=== PATIENT | male | born 1940 | race Caucasian/White ===

== ENCOUNTER 2017-04-19 18:49 | Emergency (ER) | payer MEDICARE, BC ==
[2017-04-19] MEDS ORDERED: SODIUM CHLORIDE 0.9% 1,000 ML IV STA (19:11)
--- NOTE | 2017-04-19 19:14 | ED ---
General Adult HPI - General Chief complaint: Weakness Stated complaint: poss seizure Time Seen by Provider: 04/19/17 18:58 Source: patient, family, RN notes reviewed Mode of arrival: wheelchair Limitations: no limitations - History of Present Illness Initial comments: 77 yo male presents with chief complaint of generalized weakness over the past 24 hours. Patient does have history of Parkinson's disease. Patient's he had a staring spell. He was staring, unresponsive. This lasted just seconds. There is no generalized seizure activity. Patient also reports intermittent diaphoresis and several episodes of diarrhea over the past week. Denies any current chest pain or shortness of breath. Denies abdominal pain. No headache. No fever or chills. Patient's Parkinson medication-hartmann adjusted on April 08. Patient's symptoms have only been present for the past 24 hours. - Related Data Home Medications Medication Instructions Recorded Confirmed Bisoprol/Hydrochlorothiazide [Ziac 1 tab PO DAILY 03/29/14 04/19/17 10-6.25 MG] Fenofibrate 160 mg PO DAILY 03/29/14 04/19/17 Pantoprazole Sodium 40 mg PO DAILY 03/29/14 04/19/17 Acetaminophen [Tylenol Arthritis] 650 mg PO BID PRN 04/19/17 04/19/17 Baclofen [Lioresal] 20 mg PO HS 04/19/17 04/19/17 Carbidopa/Levodopa [Sinemet CR 1 tab PO TID 04/19/17 04/19/17 50-200 mg] Escitalopram [Lexapro] 10 mg PO DAILY 04/19/17 04/19/17 rOPINIRole HCL [Requip Xl] 4 mg PO QAM 04/19/17 04/19/17 Allergies Allergy/AdvReac Type Severity Reaction Status Date / Time diltiazem HCl [From Cardizem] Allergy Mild Rash/Hives Verified 04/19/17 20:05 Beta-Blockers Allergy Rash/Hives Verified 04/19/17 20:05 (Beta-Adrenergic Bloc Review of Systems ROS Statement: Those systems with pertinent positive or pertinent negative responses have been documented in the HPI. ROS Other: All systems not noted in ROS Statement are negative. Past Medical History Past Medical History: GERD/Reflux, Hypertension Additional Past Medical History / Comment(s): parkinsons History of Any Multi-Drug Resistant Organisms: None Reported Past Surgical History: Back Surgery, Cholecystectomy, Orthopedic Surgery Additional Past Surgical History / Comment(s): right knee Past Psychological History: No Psychological Hx Reported Smoking Status: Former smoker Past Alcohol Use History: None Reported Past Drug Use History: None Reported General Exam Limitations: no limitations General appearance: alert, in no apparent distress Head exam: Present: atraumatic, normocephalic Eye exam: Present: normal appearance, PERRL ENT exam: Present: mucous membranes dry Neck exam: Present: normal inspection. Absent: tenderness, meningismus Respiratory exam: Present: normal lung sounds bilaterally. Absent: respiratory distress Cardiovascular Exam: Present: regular rate, normal rhythm GI/Abdominal exam: Present: soft, distended. Absent: tenderness, guarding Extremities exam: Present: normal inspection, normal capillary refill. Absent: pedal edema Neurological exam: Present: alert, oriented X3. Absent: motor sensory deficit Psychiatric exam: Present: normal mood, flat affect Skin exam: Present: warm, dry, intact. Absent: cyanosis, diaphoretic Course Vital Signs 04/19/17 04/19/17 18:57 20:07 Temperature 98.6 F Pulse Rate 60 62 Respiratory 20 18 Rate Blood Pressure 149/71 140/71 O2 Sat by Pulse 97 96 Oximetry EKG Findings - EKG Comments: EKG Findings:: EKG shows sinus rhythm with first-degree AV block, a trigger rate 62, TX interval 214, QRS duration 94, QTC 454, no ST segment elevation or depression no T-wave abnormality Medical Decision Making - Medical Decision Making 71 sexual male with Parkinson's presenting with generalized weakness. Patient' s vital signs are stable, exam unremarkable, including nonfocal neurologic exam. Chest x-ray and abdominal x-ray showed no acute findings. White blood cell count is normal at 5.5, hemoglobin stable at 13.8, electrolytes all within normal limits. Troponin is negative. Lactic acid is 1.8 which is negative. Urinalysis shows no signs of infection. Patient's weakness may be related to his Parkinson's disease, or medication effect. Patient will follow-up with both his primary care physician and neurologist. - Lab Data Result diagrams: 04/19/17 19:25 04/19/17 19:25 Lab Results 04/19/17 04/19/17 04/19/17 Range/Units 19:25 19:25 19:25 WBC 5.5 (3.8-10.6) k/uL RBC 4.70 (4.30-5.90) m/uL Hgb 13.8 (13.0-17.5) gm/dL Hct 42.1 (39.0-53.0) % MCV 89.7 (80.0-100.0) fL MCH 29.4 (25.0-35.0) pg MCHC 32.8 (31.0-37.0) g/dL RDW 16.9 H (11.5-15.5) % Plt Count 273 (150-450) k/uL Neutrophils % 69 % Lymphocytes % 19 % Monocytes % 4 % Eosinophils % 5 % Basophils % 1 % Neutrophils # 3.8 (1.3-7.7) k/uL Lymphocytes # 1.1 (1.0-4.8) k/uL Monocytes # 0.2 (0-1.0) k/uL Eosinophils # 0.3 (0-0.7) k/uL Basophils # 0.1 (0-0.2) k/uL Anisocytosis Slight PT (9.0-12.0) sec INR (<1.2) APTT (22.0-30.0) sec Sodium 138 (137-145) mmol/L Potassium 4.2 (3.5-5.1) mmol/L Chloride 104 (98-107) mmol/L Carbon Dioxide 21 L (22-30) mmol/L Anion Gap 13 mmol/L BUN 23 H (9-20) mg/dL Creatinine 1.06 (0.66-1.25) mg/dL Est GFR (MDRD) Af Amer >60 (>60 ml/min/1.73 sqM) Est GFR (MDRD) Non-Af >60 (>60 ml/min/1.73 sqM) Glucose 143 H (74-99) mg/dL Plasma Lactic Acid Wing (0.7-2.0) mmol/L Calcium 9.2 (8.4-10.2) mg/dL Magnesium 1.9 (1.6-2.3) mg/dL Total Bilirubin 0.4 (0.2-1.3) mg/dL AST 17 (17-59) U/L ALT 17 L (21-72) U/L Alkaline Phosphatase 39 (38-126) U/L Total Creatine Kinase 105 (55-170) U/L CK-MB (CK-2) 2.7 H* (0.0-2.4) ng/mL CK-MB (CK-2) Rel Index 2.6 Troponin I <0.012 (0.000-0.034) ng/mL Total Protein 6.8 (6.3-8.2) g/dL Albumin 4.1 (3.5-5.0) g/dL Urine Color Urine Appearance (Clear) Urine pH (5.0-8.0) Ur Specific Wedron (1.001-1.035) Urine Protein (Negative) Urine Glucose (UA) (Negative) Urine Ketones (Negative) Urine Blood (Negative) Urine Nitrite (Negative) Urine Bilirubin (Negative) Urine Urobilinogen (<2.0) mg/dL Ur Leukocyte Esterase (Negative) 04/19/17 04/19/17 04/19/17 Range/Units 19:25 19:25 19:36 WBC (3.8-10.6) k/uL RBC (4.30-5.90) m/uL Hgb (13.0-17.5) gm/dL Hct (39.0-53.0) % MCV (80.0-100.0) fL MCH (25.0-35.0) pg MCHC (31.0-37.0) g/dL RDW (11.5-15.5) % Plt Count (150-450) k/uL Neutrophils % % Lymphocytes % % Monocytes % % Eosinophils % % Basophils % % Neutrophils # (1.3-7.7) k/uL Lymphocytes # (1.0-4.8) k/uL Monocytes # (0-1.0) k/uL Eosinophils # (0-0.7) k/uL Basophils # (0-0.2) k/uL Anisocytosis PT 10.4 (9.0-12.0) sec INR 1.0 (<1.2) APTT 25.3 (22.0-30.0) sec Sodium (137-145) mmol/L Potassium (3.5-5.1) mmol/L Chloride (98-107) mmol/L Carbon Dioxide (22-30) mmol/L Anion Gap mmol/L BUN (9-20) mg/dL Creatinine (0.66-1.25) mg/dL Est GFR (MDRD) Af Amer (>60 ml/min/1.73 sqM) Est GFR (MDRD) Non-Af (>60 ml/min/1.73 sqM) Glucose (74-99) mg/dL Plasma Lactic Acid Wing 1.8 (0.7-2.0) mmol/L Calcium (8.4-10.2) mg/dL Magnesium (1.6-2.3) mg/dL Total Bilirubin (0.2-1.3) mg/dL AST (17-59) U/L ALT (21-72) U/L Alkaline Phosphatase (38-126) U/L Total Creatine Kinase (55-170) U/L CK-MB (CK-2) (0.0-2.4) ng/mL CK-MB (CK-2) Rel Index Troponin I (0.000-0.034) ng/mL Total Protein (6.3-8.2) g/dL Albumin (3.5-5.0) g/dL Urine Color Yellow Urine Appearance Clear (Clear) Urine pH 5.0 (5.0-8.0) Ur Specific Wedron 1.022 (1.001-1.035) Urine Protein Negative (Negative) Urine Glucose (UA) Negative (Negative) Urine Ketones Negative (Negative) Urine Blood Negative (Negative) Urine Nitrite Negative (Negative) Urine Bilirubin Negative (Negative) Urine Urobilinogen <2.0 (<2.0) mg/dL Ur Leukocyte Esterase Negative (Negative) Disposition Clinical Impression: Parkinson disease Disposition: HOME SELF-CARE Condition: Good Instructions: Parkinson Disease (ED) Referrals: Preston Prado DO [Primary Care Provider] - 1-2 days Gerald Garay DO [STAFF PHYSICIAN] - 1-2 days Time of Disposition: 21:00
[2017-04-19 19:36] LABS: Anisocytosis Slight; Basophils # (A) 0.1 k/uL (0-0.2); Basophils % (A) 1 %; CH 30.6; CHCM 34.2; Eosinophils # (A) 0.3 k/uL (0-0.7); Eosinophils % (A) 5 %; HCT 42.1 % (39.0-53.0); HDW 3.03; HGB 13.8 gm/dL (13.0-17.5); Luc # (Auto) 0.08; Luc % (Auto) 2; Lymphocytes # (A) 1.1 k/uL (1.0-4.8); Lymphocytes % (A) 19 %; MCH 29.4 pg (25.0-35.0); MCHC 32.8 g/dL (31.0-37.0); MCV 89.7 fL (80.0-100.0); Mean Platelet Volume 7.3; Monocytes # (A) 0.2 k/uL (0-1.0); Monocytes % (A) 4 %; Neutrophils # (A) 3.8 k/uL (1.3-7.7); Neutrophils % (A) 69 %; RDW 16.9 % (11.5-15.5); WBC 5.5 k/uL (3.8-10.6); WBC (Perox) 5.62
[2017-04-19 19:44] LABS: Appearance,Urine Clear (Clear); Bilirubin,Urine Negative (Negative); Glucose,Urine (UA) Negative (Negative); Ketones,Urine Negative (Negative); Leukocyte Esterase,Urine Negative (Negative); Nitrite,Urine Negative (Negative); Protein,Urine Negative (Negative); Specific Gravity,Urine 1.022 (1.001-1.035); UA Billing (MACRO vs. MICRO) CHEM; Urobilinogen,Urine <2.0 mg/dL (<2.0)
[2017-04-19 19:45] LABS: Partial Thromboplastin Time 25.3 sec (22.0-30.0); Prothrombin Time 10.4 sec (9.0-12.0)
[2017-04-19 19:46] LABS: ALT 17 U/L (21-72); AST 17 U/L (17-59); Alkaline Phosphatase 39 U/L (38-126); Anion Gap 13 mmol/L; Blood Urea Nitrogen 23 mg/dL (9-20); Calcium 9.2 mg/dL (8.4-10.2); Carbon Dioxide 21 mmol/L (22-30); Chloride 104 mmol/L (98-107); Glucose 143 mg/dL (74-99); Magnesium 1.9 mg/dL (1.6-2.3); Non-African American GFR(MDRD) >60 (>60 ml/min/1.73 sqM); Potassium 4.2 mmol/L (3.5-5.1); Sodium 138 mmol/L (137-145); Total Bilirubin 0.4 mg/dL (0.2-1.3); Total Protein 6.8 g/dL (6.3-8.2)
[2017-04-19 19:55] LABS: Creatine Kinase 105 U/L (55-170)
--- NOTE | 2017-04-19 20:07 | XR ---
EXAMINATION TYPE: XR abdomen acute w cxr DATE OF EXAM: 04/19/2017 COMPARISON: NONE HISTORY: Fatigue and chest pain TECHNIQUE: 4 views FINDINGS: Heart and mediastinum are normal. Lungs are clear. Bowel gas pattern is normal. There is no sign of i ntestinal obstruction or pneumoperitoneum. Fecal pattern is normal. There are clips from cholecystect jacqui. There are no pathologic calcifications over the kidneys. IMPRESSION: Nonacute abdomen. Normal chest.
[2017-04-19 20:08] LABS: Troponin I <0.012 ng/mL (0.000-0.034)
[2017-04-19 20:09] VITALS: RESP 18
[2017-04-19 20:10] LABS: Creatine Kinase MB 2.7 ng/mL (0.0-2.4)
[2017-04-19 21:10] VITALS: BP 149/91; PULSE 60; TEMP 97.9
== END 2017-04-19 21:09 | disposition home or self-care (01) ==
LOC: EC 18:49
DX: G20 Parkinson's disease (principal); R53.1 Weakness; R61 Generalized hyperhidrosis; R19.7 Diarrhea, unspecified; K21.9 Gastro-esophageal reflux disease without esophagitis; I10 Essential (primary) hypertension; Z87.891 Personal history of nicotine dependence; Z79.899 Other long term (current) drug therapy; Z88.8 Allergy status to other drugs, medicaments and biological substances
CPT/HCPCS: 36415; 74022; 80053; 81003; 82550; 82553; 83605; 83735; 84484; 85025; 85610; 85730; 93005; 96360; 96361; 99285

== ENCOUNTER 2017-04-25 07:14 | Day surgery (SDC) | payer MEDICARE, BC ==
[2017-04-23 15:37] VITALS: BMI 31.8
[~2017-04-25 07:14] MED LIST: LACTATED RINGERS 1,000 ML IV SCH
[2017-04-25 07:41] VITALS: TEMP 98.6
[2017-04-25] MEDS ORDERED: LIDOCAINE 1% 20 ML VIAL (10MG/ML) FOR IV START INTRADERMA ONE (07:45)
[2017-04-25 07:52] LABS: Glucose,Whole Blood 123 mg/dL (75-99)
[2017-04-25] MEDS ORDERED: PROPOFOL 10 MG/ML 20 ML VIAL IV ONE (08:25)
[2017-04-25] MEDS ORDERED: LIDOCAINE 1% INJ 10MG/ML (20 ML MDV) ONE (08:25)
--- NOTE | 2017-04-25 09:07 | P.PCN ---
Date of Procedure: 04/25/17 Procedure(s) Performed: Procedures: Esophagogastroduodenoscopy and biopsy. Colonoscopy and biopsy. Preoperative diagnosis: Dysphagia and change in bowel habits. Postoperative diagnosis: Sliding hiatal hernia with no obvious esophagitis or complicated reflux disease. Mild antral gastritis. Sigmoid diverticulosis. Multiple biopsies obtained from the duodenum, antrum, esophagus and right colon. Preparation: HalfLytely prep. Sedation: Was provided by anesthesia. Brief clinical history: The patient is a 77-year-old male who is referred for this evaluation because of change in bowel habits mostly in the form of intermittent diarrhea as well as intermittent dysphagia. This evaluation is to assess for, complicated reflux disease, neoplasia or other pathology. Procedure: With the patient on his left lateral decubitus position and after informed consent and adequate sedation, I passed the Olympus-GIF 160 video upper endoscope through the cricopharyngeus down the esophagus. GE junction was around 41 cm from the incisors and there was a small sliding hiatal hernia. The esophagus did not show any obvious erosions, ulcers, strictures or Duenas 's esophagus. The endoscope was then passed into the stomach which was insufflated with air and inspected in detail including the retroflex view in the cardia. There was some mottling and erythema in the antrum but no ulcers or erosions. Pyloric channel, duodenal bulb, post bulbar area and descending duodenum appeared within normal limits. I obtained biopsies from the duodenum, antrum and esophagus then the endoscope was withdrawn and I proceeded to do colonoscopy. Perianal area did not show any fissures or fistulas. There were no masses felt on digital rectal examination. The Olympus CFQ 160L video colonoscope was then inserted in the rectum in the usual fashion and advanced to the cecum. There were multiple diverticular orifices seen scattered in the sigmoid with no evidence of acute diverticulitis or strictures. The mucosa appeared healthy. No polyps or tumors were seen. I retroflexed the endoscope in the rectum before the endoscope was withdrawn and I obtained right colon biopsies as well. The patient tolerated the procedure well. Plan: The patient was reassured. Will await biopsy results. Discussed dietary measures. He will follow up with you as planned and I will be happy to see in the future if needed.
[2017-04-25 09:22] VITALS: BP 178/81
[2017-04-25 09:27] VITALS: PULSE 56; RESP 18
== END 2017-04-25 09:46 | disposition home or self-care (01) ==
LOC: ORWHC2ENDO 07:14
DX: K29.50 Unspecified chronic gastritis without bleeding (principal); K44.9 Diaphragmatic hernia without obstruction or gangrene; K57.30 Diverticulosis of large intestine without perforation or abscess without bleeding; R19.4 Change in bowel habit; R19.7 Diarrhea, unspecified; E11.9 Type 2 diabetes mellitus without complications; K21.9 Gastro-esophageal reflux disease without esophagitis; I10 Essential (primary) hypertension; G20 Parkinson's disease; Z88.8 Allergy status to other drugs, medicaments and biological substances; Z79.899 Other long term (current) drug therapy
CPT/HCPCS: 88305; 88342; 45380; 43239; J2001; J2704

== ENCOUNTER 2018-02-26 18:00 | Emergency (ER) | payer MEDICARE, BC ==
[2018-02-26] MEDS ORDERED: IPRATROPIUM-ALBUTEROL 3 ML NEB INHALATION STA (19:25)
--- NOTE | 2018-02-26 19:28 | ED ---
General Adult HPI - General Chief complaint: Upper Respiratory Infection Stated complaint: cough, poss dehydration Time Seen by Provider: 02/26/18 19:14 Source: patient, family, RN notes reviewed Mode of arrival: wheelchair Limitations: no limitations - History of Present Illness Initial comments: Patient's a 77-year-old male presented to the emergency room today with a chief complaint of cough congestion. Patient states that this cough with clear sputum production over the last month. They do admit that with the family doctor approximately 2 weeks ago had blood work obtained. States that they were told that his lungs sound clear at the time. at bedside stating that she's heard some wheezing. She does admit that been eating and drinking okay. States has noticed that the urine was darker today was thinking that he could be a little dehydrated as his water intake has been down. Denies any other complaints or symptoms. Patient denies any recent fever, chills, shortness of breath, chest pain, back pain, abdominal pain, nausea or vomiting, headaches or visual changes, or any other complaints. - Related Data Home Medications Medication Instructions Recorded Confirmed Bisoprol/Hydrochlorothiazide [Ziac 1 tab PO DAILY 03/29/14 02/26/18 10-6.25 MG] Fenofibrate 160 mg PO DAILY 03/29/14 02/26/18 Pantoprazole Sodium 40 mg PO DAILY 03/29/14 02/26/18 Acetaminophen [Tylenol Arthritis] 650 mg PO BID PRN 04/19/17 02/26/18 Baclofen [Lioresal] 20 mg PO HS PRN 04/19/17 02/26/18 Carbidopa/Levodopa [Sinemet CR 1 tab PO TID 04/19/17 02/26/18 50-200 mg] rOPINIRole HCL [Requip Xl] 4 mg PO QAM 04/19/17 02/26/18 Sertraline [Zoloft] 50 mg PO DAILY 02/26/18 02/26/18 Previous Rx's Medication Instructions Recorded Albuterol Inhaler [Ventolin Hfa 1 - 2 puff INHALATION Q4-6H PRN #1 02/26/18 Inhaler] inhaler Azithromycin [Zithromax Z-pack] 0 mg PO DIRECTED #6 tab 02/26/18 Allergies Allergy/AdvReac Type Severity Reaction Status Date / Time diltiazem HCl [From Cardizem] Allergy Mild Rash/Hives Verified 02/26/18 19:15 Beta-Blockers Allergy Rash/Hives Verified 02/26/18 19:15 (Beta-Adrenergic Bloc Review of Systems ROS Statement: Those systems with pertinent positive or pertinent negative responses have been documented in the HPI. ROS Other: All systems not noted in ROS Statement are negative. Past Medical History Past Medical History: GERD/Reflux, Hypertension Additional Past Medical History / Comment(s): parkinsons History of Any Multi-Drug Resistant Organisms: None Reported Past Surgical History: Back Surgery, Cholecystectomy, Orthopedic Surgery Additional Past Surgical History / Comment(s): right knee Past Psychological History: No Psychological Hx Reported Smoking Status: Former smoker General Exam - General Exam Comments Initial Comments: General: The patient is awake and alert, in no distress, and does not appear acutely ill. Eye: Pupils are equal, round and reactive to light, extra-ocular movements are intact. No nystagmus. There is normal conjunctiva bilaterally. No signs of icterus. Ears, nose, mouth and throat: There are moist mucous membranes and no oral lesions. Neck: The neck is supple, there is no tenderness or JVD. Cardiovascular: There is a regular rate and rhythm. No murmur, rub or gallop is appreciated. Respiratory: Mild expiratory wheeze. respirations are non-labored, breath sounds are equal. No stridor, rales, or rhonchi. Gastrointestinal: Soft, non-distended, non-tender abdomen without masses or organomegaly noted. There is no rebound or guarding present. No CVA tenderness. Bowel sounds are unremarkable. Musculoskeletal: Normal ROM, no tenderness. Sensation intact. Neurological: A&O x 3. CN II-XII intact, There are no obvious motor or sensory deficits. Coordination appears grossly intact. Speech is normal. Skin: Skin is warm and dry and no rashes or lesions are noted. Psychiatric: Cooperative, appropriate mood & affect, normal judgment. Limitations: no limitations Course Vital Signs 02/26/18 02/26/18 02/26/18 18:06 20:06 20:24 Temperature 97.4 F L Pulse Rate 60 78 82 Respiratory 20 Rate Blood Pressure 132/78 O2 Sat by Pulse 98 Oximetry - Reevaluation(s) Reevaluation #1: 02/26/18 19:27 Options were discussed about obtaining blood work and giving IV fluids if there is concern for dehydration. They've currently declined. They state they're comfortable with chest x-ray at this time and a breathing treatment. Medical Decision Making - Medical Decision Making Patient reexamined at this time shows no signs of distress. He is resting comfortably. Does admit to improvement after breathing treatment here in the emergency room. Chest x-rays negative for any sign of pneumonia. No other acute abnormality. Results were discussed with the patient. Patient's vital stable. Patient feeling well with like to be discharged home. Will be given a prescription for azithromycin along with albuterol inhaler. Advised following up with family doctor over the next 2 days return if symptoms increase worsen. Disposition Clinical Impression: Acute bronchitis Disposition: HOME SELF-CARE Condition: Good Instructions: Acute Bronchitis (ED) Additional Instructions: Please use medication as discussed. Please follow-up with family doctor in the next 2 days of symptoms have not improved. Please return to emergency room if the symptoms increase or worsen or for any other concerns. Prescriptions: Albuterol Inhaler [Ventolin Hfa Inhaler] 1 - 2 puff INHALATION Q4-6H PRN #1 inhaler PRN Reason: Cough Azithromycin [Zithromax Z-pack] 0 mg PO DIRECTED #6 tab Is patient prescribed a controlled substance at d/c from ED?: No Referrals: Preston Prado DO [Primary Care Provider] - 1-2 days Time of Disposition: 20:42
--- NOTE | 2018-02-26 20:12 | XR ---
EXAMINATION: XR chest 2V DATE AND TIME: 02/26/2018 7:44 PM CLINICAL INDICATION: cough TECHNIQUE: PA and lateral COMPARISON: None. FINDINGS: The lungs are clear. The pleural spaces are negative. The cardiac silhouette is not enlarged. The remainder of the mediastinal silhouette is unremarkable. The skeletal structures and soft tissues are negative for acute findings. IMPRESSION: NO ACUTE PROCESS.
[2018-02-26 21:13] VITALS: BP 167/76; PULSE 68; RESP 18; TEMP 98
== END 2018-02-26 21:11 | disposition home or self-care (01) ==
LOC: EC 18:00
DX: J20.9 Acute bronchitis, unspecified (principal); K21.9 Gastro-esophageal reflux disease without esophagitis; I10 Essential (primary) hypertension; Z87.891 Personal history of nicotine dependence; Z79.899 Other long term (current) drug therapy; Z88.8 Allergy status to other drugs, medicaments and biological substances
CPT/HCPCS: 71046; 94640; 99283

== ENCOUNTER 2018-03-05 14:32 | Emergency (ER) | payer MEDICARE, BC ==
[2018-03-05 14:47] VITALS: RESP 18; TEMP 97.9
[2018-03-05] MEDS ORDERED: SODIUM CHLORIDE 0.9% 500 ML IV STA ×2 (15:19→16:01)
--- NOTE | 2018-03-05 15:22 | ED ---
General Adult HPI - General Chief complaint: Weakness Stated complaint: Weakness Time Seen by Provider: 03/05/18 15:12 Source: patient, family, EMS, RN notes reviewed Mode of arrival: EMS Limitations: no limitations - History of Present Illness Initial comments: Patient is a pleasant 77-year-old male presenting to the emergency department following a fall. Fall occurred just prior to arrival. Patient was outside cutting the grass. He was very humid outside. Patient did get somewhat nauseated and fell down. No injury. No weakness. No confusion. No headache. No chest pain or dyspnea. Patient did have some nausea that is very mild at this time. Patient does not want any medication for this. No abdominal pain. No back pain. - Related Data Home Medications Medication Instructions Recorded Confirmed Bisoprol/Hydrochlorothiazide [Ziac 1 tab PO DAILY 03/29/14 02/26/18 10-6.25 MG] Fenofibrate 160 mg PO DAILY 03/29/14 02/26/18 Pantoprazole Sodium 40 mg PO DAILY 03/29/14 02/26/18 Acetaminophen [Tylenol Arthritis] 650 mg PO BID PRN 04/19/17 02/26/18 Baclofen [Lioresal] 20 mg PO HS PRN 04/19/17 02/26/18 Carbidopa/Levodopa [Sinemet CR 1 tab PO TID 04/19/17 02/26/18 50-200 mg] rOPINIRole HCL [Requip Xl] 4 mg PO QAM 04/19/17 02/26/18 Sertraline [Zoloft] 50 mg PO DAILY 02/26/18 02/26/18 Previous Rx's Medication Instructions Recorded Albuterol Inhaler [Ventolin Hfa 1 - 2 puff INHALATION Q4-6H PRN #1 02/26/18 Inhaler] inhaler Azithromycin [Zithromax Z-pack] 0 mg PO DIRECTED #6 tab 02/26/18 Allergies Allergy/AdvReac Type Severity Reaction Status Date / Time diltiazem HCl [From Cardizem] Allergy Mild Rash/Hives Verified 03/05/18 14:47 Beta-Blockers Allergy Rash/Hives Verified 03/05/18 14:47 (Beta-Adrenergic Bloc Review of Systems ROS Statement: Those systems with pertinent positive or pertinent negative responses have been documented in the HPI. ROS Other: All systems not noted in ROS Statement are negative. Constitutional: Denies: fever Eyes: Denies: eye pain ENT: Denies: ear pain Respiratory: Denies: cough, dyspnea Cardiovascular: Denies: chest pain Endocrine: Denies: fatigue Gastrointestinal: Reports: nausea. Denies: abdominal pain, vomiting Genitourinary: Denies: dysuria Musculoskeletal: Denies: back pain Skin: Denies: rash Neurological: Denies: weakness Past Medical History Past Medical History: GERD/Reflux, Hypertension Additional Past Medical History / Comment(s): parkinsons History of Any Multi-Drug Resistant Organisms: None Reported Past Surgical History: Back Surgery, Cholecystectomy, Orthopedic Surgery Additional Past Surgical History / Comment(s): right knee Past Psychological History: No Psychological Hx Reported Smoking Status: Former smoker Past Alcohol Use History: None Reported Past Drug Use History: None Reported General Exam Limitations: no limitations General appearance: alert, in no apparent distress Head exam: Present: atraumatic Eye exam: Present: normal appearance, PERRL, EOMI. Absent: nystagmus ENT exam: Present: normal oropharynx Neck exam: Present: normal inspection, full ROM. Absent: tenderness, meningismus Respiratory exam: Present: normal lung sounds bilaterally Cardiovascular Exam: Present: regular rate, normal rhythm Expanded Peripheral pulses: 2+: Radial (R), Radial (L), Posterior Tibialis (R), Posterior Tibialis (L) GI/Abdominal exam: Present: soft. Absent: distended, tenderness Extremities exam: Present: normal inspection. Absent: pedal edema, calf tenderness Back exam: Present: normal inspection. Absent: tenderness, vertebral tenderness Neurological exam: Present: alert, oriented X3, CN II-XII intact. Absent: motor sensory deficit Expanded Neurological exam: Present: protecting the airway Patient oriented to: Present: person, place, time Speech: Present: fluid speech Cranial nerves: EOM's Intact: Normal, Facial Sensation: Normal Sensory exam: Upper Extremity Light Touch: Normal, Lower Extremity Light Touch: Normal Motor strength exam: RUE: 5, LUE: 5, RLE: 5, LLE: 5 Eye Response: (4) open spontaneously Motor Response: (6) obeys commands Verbal Response: (5) oriented Psychiatric exam: Present: normal affect, normal mood Skin exam: Present: normal color Course Vital Signs 03/05/18 03/05/18 14:35 16:17 Temperature 97.9 F Pulse Rate 79 66 Respiratory 18 18 Rate Blood Pressure 145/71 148/76 O2 Sat by Pulse 96 97 Oximetry EKG Findings - EKG Comments: EKG Findings:: Sinus rhythm at 75. First-degree AV block with a LA of 248. QRS 98. QT 424. QTC 473. Normal axis. Normal QRS. No acute ST change. Medical Decision Making - Medical Decision Making Patient reevaluated and is standing up next to bed without complaints. Patient requesting discharge home. Patient was able to ambulate around the emergency department without any difficulty. Patient and family updated on results and need for follow-up. - Lab Data Result diagrams: 03/05/18 15:30 03/05/18 15:30 Lab Results 03/05/18 03/05/18 03/05/18 Range/Units 15:30 15:30 15:30 WBC 6.8 (3.8-10.6) k/uL RBC 4.75 (4.30-5.90) m/uL Hgb 13.4 (13.0-17.5) gm/dL Hct 42.0 (39.0-53.0) % MCV 88.5 (80.0-100.0) fL MCH 28.2 (25.0-35.0) pg MCHC 31.9 (31.0-37.0) g/dL RDW 16.2 H (11.5-15.5) % Plt Count 295 (150-450) k/uL Neutrophils % 77 % Lymphocytes % 15 % Monocytes % 4 % Eosinophils % 3 % Basophils % 1 % Neutrophils # 5.3 (1.3-7.7) k/uL Lymphocytes # 1.0 (1.0-4.8) k/uL Monocytes # 0.2 (0-1.0) k/uL Eosinophils # 0.2 (0-0.7) k/uL Basophils # 0.1 (0-0.2) k/uL Anisocytosis Slight PT (9.0-12.0) sec INR (<1.2) APTT (22.0-30.0) sec Sodium 137 (137-145) mmol/L Potassium 4.1 (3.5-5.1) mmol/L Chloride 104 (98-107) mmol/L Carbon Dioxide 19 L (22-30) mmol/L Anion Gap 14 mmol/L BUN 19 (9-20) mg/dL Creatinine 1.08 (0.66-1.25) mg/dL Est GFR (CKD-EPI)AfAm 77 (>60 ml/min/1.73 sqM) Est GFR (CKD-EPI)NonAf 66 (>60 ml/min/1.73 sqM) Glucose 170 H (74-99) mg/dL Plasma Lactic Acid Wing (0.7-2.0) mmol/L Calcium 9.0 (8.4-10.2) mg/dL Magnesium 2.0 (1.6-2.3) mg/dL Total Bilirubin 0.7 (0.2-1.3) mg/dL AST 21 (17-59) U/L ALT 19 L (21-72) U/L Alkaline Phosphatase 39 (38-126) U/L Total Creatine Kinase 110 (55-170) U/L CK-MB (CK-2) 2.6 H* (0.0-2.4) ng/mL CK-MB (CK-2) Rel Index 2.4 Troponin I <0.012 (0.000-0.034) ng/mL Total Protein 6.8 (6.3-8.2) g/dL Albumin 4.1 (3.5-5.0) g/dL Urine Color Urine Appearance (Clear) Urine pH (5.0-8.0) Ur Specific [place] (1.001-1.035) Urine Protein (Negative) Urine Glucose (UA) (Negative) Urine Ketones (Negative) Urine Blood (Negative) Urine Nitrite (Negative) Urine Bilirubin (Negative) Urine Urobilinogen (<2.0) mg/dL Ur Leukocyte Esterase (Negative) 03/05/18 03/05/18 03/05/18 Range/Units 15:30 15:30 15:47 WBC (3.8-10.6) k/uL RBC (4.30-5.90) m/uL Hgb (13.0-17.5) gm/dL Hct (39.0-53.0) % MCV (80.0-100.0) fL MCH (25.0-35.0) pg MCHC (31.0-37.0) g/dL RDW (11.5-15.5) % Plt Count (150-450) k/uL Neutrophils % % Lymphocytes % % Monocytes % % Eosinophils % % Basophils % % Neutrophils # (1.3-7.7) k/uL Lymphocytes # (1.0-4.8) k/uL Monocytes # (0-1.0) k/uL Eosinophils # (0-0.7) k/uL Basophils # (0-0.2) k/uL Anisocytosis PT 10.1 (9.0-12.0) sec INR 1.0 (<1.2) APTT 25.2 (22.0-30.0) sec Sodium (137-145) mmol/L Potassium (3.5-5.1) mmol/L Chloride (98-107) mmol/L Carbon Dioxide (22-30) mmol/L Anion Gap mmol/L BUN (9-20) mg/dL Creatinine (0.66-1.25) mg/dL Est GFR (CKD-EPI)AfAm (>60 ml/min/1.73 sqM) Est GFR (CKD-EPI)NonAf (>60 ml/min/1.73 sqM) Glucose (74-99) mg/dL Plasma Lactic Acid Wing 3.1 H* (0.7-2.0) mmol/L Calcium (8.4-10.2) mg/dL Magnesium (1.6-2.3) mg/dL Total Bilirubin (0.2-1.3) mg/dL AST (17-59) U/L ALT (21-72) U/L Alkaline Phosphatase (38-126) U/L Total Creatine Kinase (55-170) U/L CK-MB (CK-2) (0.0-2.4) ng/mL CK-MB (CK-2) Rel Index Troponin I (0.000-0.034) ng/mL Total Protein (6.3-8.2) g/dL Albumin (3.5-5.0) g/dL Urine Color Yellow Urine Appearance Clear (Clear) Urine pH 5.5 (5.0-8.0) Ur Specific [place] 1.015 (1.001-1.035) Urine Protein Negative (Negative) Urine Glucose (UA) Negative (Negative) Urine Ketones Negative (Negative) Urine Blood Negative (Negative) Urine Nitrite Negative (Negative) Urine Bilirubin Negative (Negative) Urine Urobilinogen <2.0 (<2.0) mg/dL Ur Leukocyte Esterase Negative (Negative) - Radiology Data Radiology results: image reviewed (Chest x-ray shows no acute process) Disposition Clinical Impression: Fall Disposition: HOME SELF-CARE Condition: Stable Instructions: Weakness (ED) Additional Instructions: Please follow-up with primary care physician tomorrow. Return for weakness, confusion, fevers, difficulty breathing, worsening or change in symptoms or other concerns. Is patient prescribed a controlled substance at d/c from ED?: No Referrals: Sophia Biswas MD [STAFF PHYSICIAN] - 1-2 days Time of Disposition: 17:37
[2018-03-05 15:44] LABS: Anisocytosis Slight; Basophils # (A) 0.1 k/uL (0-0.2); Basophils % (A) 1 %; Eosinophils # (A) 0.2 k/uL (0-0.7); Eosinophils % (A) 3 %; HGB 13.4 gm/dL (13.0-17.5); Lymphocytes % (A) 15 %; MCH 28.2 pg (25.0-35.0); MCHC 31.9 g/dL (31.0-37.0); MCV 88.5 fL (80.0-100.0); Mean Platelet Volume 6.6; Monocytes # (A) 0.2 k/uL (0-1.0); Monocytes % (A) 4 %; Neutrophils # (A) 5.3 k/uL (1.3-7.7); Neutrophils % (A) 77 %; Platelet Count 295 k/uL (150-450); RBC 4.75 m/uL (4.30-5.90); RDW 16.2 % (11.5-15.5); WBC 6.8 k/uL (3.8-10.6)
[2018-03-05 15:54] LABS: Albumin 4.1 g/dL (3.5-5.0); Potassium 4.1 mmol/L (3.5-5.1); Total Bilirubin 0.7 mg/dL (0.2-1.3); Total Protein 6.8 g/dL (6.3-8.2)
[2018-03-05 15:56] LABS: Partial Thromboplastin Time 25.2 sec (22.0-30.0); Prothrombin Time 10.1 sec (9.0-12.0)
[2018-03-05 16:05] LABS: Creatine Kinase 110 U/L (55-170)
[2018-03-05 16:06] LABS: Appearance,Urine Clear (Clear); Bilirubin,Urine Negative (Negative); Blood,Urine Negative (Negative); Color,Urine Yellow; Glucose,Urine (UA) Negative (Negative); Ketones,Urine Negative (Negative); Leukocyte Esterase,Urine Negative (Negative); Nitrite,Urine Negative (Negative); PH, Urine 5.5 (5.0-8.0); Protein,Urine Negative (Negative); Specific Gravity,Urine 1.015 (1.001-1.035); Urobilinogen,Urine <2.0 mg/dL (<2.0)
--- NOTE | 2018-03-05 16:06 | XR ---
EXAMINATION TYPE: XR chest 2V DATE OF EXAM: 03/05/2018 COMPARISON: 02/26/2018 HISTORY: Shortness of breath TECHNIQUE: Frontal and lateral views of the chest are obtained. FINDINGS: Scattered senescent parenchymal changes noted. Hyperinflation compatible with COPD. Focal eventration right hemidiaphragm. No evidence for infiltrate. No evidence for atelectasis. Heart size is stable. Mediastinal structures are stable and grossly unremarkable. No evidence for hilar prominence. Degenerative changes dorsal spine. IMPRESSION: 1. No evidence for acute pulmonary disease.
[2018-03-05 16:19] LABS: Troponin I <0.012 ng/mL (0.000-0.034)
[2018-03-05 16:31] LABS: Creatine Kinase MB 2.6 ng/mL (0.0-2.4)
[2018-03-05 18:08] VITALS: BP 142/80; PULSE 80
== END 2018-03-05 18:08 | disposition home or self-care (01) ==
LOC: EC 14:32
DX: R53.1 Weakness (principal); R11.0 Nausea; R40.2142 Coma scale, eyes open, spontaneous, at arrival to emergency department; R40.2252 Coma scale, best verbal response, oriented, at arrival to emergency department; R40.2362 Coma scale, best motor response, obeys commands, at arrival to emergency department; K21.9 Gastro-esophageal reflux disease without esophagitis; I10 Essential (primary) hypertension; G20 Parkinson's disease; Z87.891 Personal history of nicotine dependence; Z79.899 Other long term (current) drug therapy; Z88.8 Allergy status to other drugs, medicaments and biological substances; W19.XXXA Unspecified fall, initial encounter; Y93.H2 Activity, gardening and landscaping
CPT/HCPCS: 36415; 71046; 80053; 81003; 82550; 82553; 83605; 83735; 84484; 85025; 85610; 85730; 93005; 96360; 99285

== ENCOUNTER 2018-04-29 20:14 | Observation (INO) | payer MEDICARE, BC ==
[2018-04-29] MEDS ORDERED: IPRATROPIUM-ALBUTEROL 3 ML NEB INHALATION STA ×2 (21:00→23:42)
[2018-04-29] MEDS ORDERED: LEVOFLOXACIN 750MG-D5W PMX 750 MG in DEXTROSE/WATER 1 150ML.BAG IVPB STA (21:00)
[2018-04-29] MEDS ORDERED: methylPREDNISolone SOD SUCCI 125 MG/2 ML VIAL IV STA (21:00)
[2018-04-29] MEDS ORDERED: SODIUM CHLORIDE 0.9% 1,000 ML IV STA ×2 (21:00)
[2018-04-29 22:06] LABS: Anisocytosis Slight; Basophils % (A) 0 %; Eosinophils # (A) 0.1 k/uL (0-0.7); Eosinophils % (A) 1 %; HCT 42.8 % (39.0-53.0); HGB 13.8 gm/dL (13.0-17.5); Lymphocytes # (A) 1.5 k/uL (1.0-4.8); Lymphocytes % (A) 17 %; MCH 28.2 pg (25.0-35.0); MCHC 32.3 g/dL (31.0-37.0); MCV 87.4 fL (80.0-100.0); Mean Platelet Volume 6.7; Monocytes # (A) 0.5 k/uL (0-1.0); Monocytes % (A) 5 %; Neutrophils # (A) 6.3 k/uL (1.3-7.7); Neutrophils % (A) 74 %; Platelet Count 337 k/uL (150-450); RDW 16.3 % (11.5-15.5); WBC 8.6 k/uL (3.8-10.6)
[2018-04-29 22:14] LABS: INR 1.1 (<1.2); Partial Thromboplastin Time 27.9 sec (22.0-30.0); Prothrombin Time 10.4 sec (9.0-12.0)
[2018-04-29 22:17] LABS: Appearance,Urine Clear (Clear); Bilirubin,Urine Negative (Negative); Blood,Urine Negative (Negative); Color,Urine Yellow; Glucose,Urine (UA) Negative (Negative); Ketones,Urine Negative (Negative); Leukocyte Esterase,Urine Negative (Negative); Nitrite,Urine Negative (Negative); Protein,Urine Negative (Negative); Urobilinogen,Urine <2.0 mg/dL (<2.0)
[2018-04-29 22:17] LABS: ALT 17 U/L (21-72); AST 19 U/L (17-59); Albumin 4.4 g/dL (3.5-5.0); Alkaline Phosphatase 29 U/L (38-126); Anion Gap 12 mmol/L; Blood Urea Nitrogen 27 mg/dL (9-20); Calcium 9.5 mg/dL (8.4-10.2); Carbon Dioxide 23 mmol/L (22-30); Chloride 102 mmol/L (98-107); Glucose 106 mg/dL (74-99); Potassium 4.6 mmol/L (3.5-5.1); Sodium 137 mmol/L (137-145); Total Bilirubin 0.5 mg/dL (0.2-1.3); Total Protein 7.3 g/dL (6.3-8.2)
[2018-04-29 22:22] LABS: Creatine Kinase 155 U/L (55-170)
[2018-04-29 22:34] LABS: Creatine Kinase MB 3.2 ng/mL (0.0-2.4); Troponin I <0.012 ng/mL (0.000-0.034)
--- NOTE | 2018-04-29 22:34 | XR ---
EXAMINATION TYPE: XR chest 2V DATE OF EXAM: 04/29/2018 COMPARISON: 03/05/2018 HISTORY: Short of breath and cough TECHNIQUE: Frontal and lateral views of the chest are obtained. FINDINGS: There is no heart failure nor confluent pneumonic infiltrate. Costophrenic angles are yaron r. There are chest leads. Bony thorax is intact. IMPRESSION: No active cardiopulmonary disease. No change.
[2018-04-29] MEDS ORDERED: ZOLPIDEM 5 MG TAB PO STA (23:42)
[2018-04-29] MEDS ORDERED: hydrALAZINE HCL 20 MG/ML 1 ML VIAL IVP STA (23:43)
--- NOTE | 2018-04-30 00:14 | ED ---
SOB HPI - General Chief Complaint: Shortness of Breath Stated Complaint: KARLA Time Seen by Provider: 04/29/18 20:51 Source: patient, family Mode of arrival: wheelchair Limitations: no limitations - History of Present Illness Initial Comments: This 78-year-old white male presents with a complaint of some shortness of breath and cough. States that his cough is nonproductive. He cannot seem to muster up a significant cough. It feels like he does have phlegm present but cannot get it up. He states that the symptoms haven't present for the past 3 months but worse in the last 1 week. He was seen at the urgent care this past week and was prescribed some albuterol, prednisone, and Zithromax. This is not causing any improvement in his symptoms at this time. He states that the shortness of breath is fairly significant. He's felt weak. He's had decreased sleep due to the coughing. Much of history is obtained per the who is a better historian. No other complaints or modifying factors. There is no chest pain. There's been no known measured temperature at home but he is had some periods where she feels hot and then has some chills. - Related Data Home Medications Medication Instructions Recorded Confirmed Bisoprol/Hydrochlorothiazide [Ziac 1 tab PO DAILY 03/29/14 04/29/18 10-6.25 MG] Fenofibrate 160 mg PO DAILY 03/29/14 04/29/18 Pantoprazole Sodium 40 mg PO DAILY 03/29/14 04/29/18 Acetaminophen [Tylenol Arthritis] 650 mg PO BID PRN 04/19/17 04/29/18 Carbidopa/Levodopa [Sinemet CR 1 tab PO TID 04/19/17 04/29/18 50-200 mg] rOPINIRole HCL [Requip Xl] 4 mg PO QAM 04/19/17 04/29/18 Albuterol Inhaler [Ventolin Hfa 1 - 2 puff INHALATION RT-Q6H PRN 04/29/18 Inhaler] Carbidopa-Levodopa 25-100 mg 1 tab PO DAILY 04/29/18 04/29/18 [Sinemet 25-100] Cefuroxime Axetil [Ceftin] 500 mg PO Q12H 04/29/18 04/29/18 methylPREDNISolone [Medrol Dose See Taper PO DIRECTED 04/29/18 04/29/18 Pack] Allergies Allergy/AdvReac Type Severity Reaction Status Date / Time diltiazem HCl [From Cardizem] Allergy Mild Rash/Hives Verified 04/29/18 21:09 Beta-Blockers Allergy Rash/Hives Verified 04/29/18 21:09 (Beta-Adrenergic Bloc Review of Systems ROS Statement: Those systems with pertinent positive or pertinent negative responses have been documented in the HPI. ROS Other: All systems not noted in ROS Statement are negative. Past Medical History Past Medical History: GERD/Reflux, Hypertension Additional Past Medical History / Comment(s): parkinsons History of Any Multi-Drug Resistant Organisms: None Reported Past Surgical History: Back Surgery, Cholecystectomy, Orthopedic Surgery Additional Past Surgical History / Comment(s): right knee Past Psychological History: No Psychological Hx Reported Smoking Status: Former smoker Past Alcohol Use History: None Reported Past Drug Use History: None Reported General Exam - General Exam Comments Initial Comments: GENERAL: The patient is well nourished and well hydrated. VITAL SIGNS: Heart rate, blood pressure, respiratory rate reviewed as recorded in nurse's notes. EYES: Pupils are round and reactive. Extraocular movements are intact. No conjunctival / lid redness or swelling. ENT: No external evidence of injury, swelling, or ecchymosis. Airway is patent. Throat is clear. NECK: Nontender. No swelling or evidence of injury. No subcutaneous emphysema. Trachea is midline. No thyroid mass. HEART: Regular rate and rhythm. Good peripheral pulses. LUNGS/CHEST: Wheezing is noted bilaterally. No ecchymosis, subcutaneous emphysema, or tenderness. ABDOMEN: Abdomen soft without tenderness. No palpable masses or organomegaly. No peritoneal signs. No abdominal wall swelling or ecchymosis. EXTREMITIES: No extremity tenderness. Normal muscle tone and function. No thoracolumbar tenderness. NEUROLOGIC: Sensation is grossly intact. Cranial nerve exam reveals face is symmetrical, tongue is midline, speech is clear. SKIN: No abrasions or ecchymosis is noted. No induration or masses noted. PSYCHIATRIC: Alert and oriented. Appropriate behavior and judgment. Limitations: no limitations Course Vital Signs 04/29/18 04/29/18 04/29/18 20:19 20:52 22:25 Temperature 97.9 F Pulse Rate 64 60 Respiratory 18 20 Rate Blood Pressure 163/83 O2 Sat by Pulse 96 Oximetry 04/29/18 22:39 Temperature Pulse Rate 69 Respiratory Rate Blood Pressure O2 Sat by Pulse Oximetry Medical Decision Making - Medical Decision Making The patient is seen and examined. All diagnostics are reviewed. He does receive a EKG which shows a sinus bradycardia at a rate of 58. There is no acute ST-T wave changes identified. The ventricular rate is 58, RI intervals 200, QRS duration is 90, and the QTC intervals 447. He also has a chest x-ray which does not show any evidence of pneumonia or acute processes. The laboratory is reviewed and does not show any overt significant abnormalities. He receives 2 DuoNeb breathing treatments. He also receives some IV antibiotics. The patient further received some Solu-Medrol intravenously. He is complaining of some insomnia and receives 5 mg of Ambien prior to admission. Is feeling slightly improved on recheck and on oxygen. It is felt as though he likely does have a bronchitis. He is also significantly weak. He has failed outpatient treatment. This felt as though he benefit from admission to the hospital and further treatment and testing. Case will be discussed with internal medicine in the near future. His blood pressure is also elevated and he does receive some hydralazine. Is felt as though he may benefit from pulmonology consultation as his symptoms have been progressively worsening for quite some time. - Lab Data Result diagrams: 04/29/18 21:30 04/29/18 21:30 Lab Results 04/29/18 04/29/18 04/29/18 Range/Units 21:30 21:30 21:30 WBC 8.6 (3.8-10.6) k/uL RBC 4.90 (4.30-5.90) m/uL Hgb 13.8 (13.0-17.5) gm/dL Hct 42.8 (39.0-53.0) % MCV 87.4 (80.0-100.0) fL MCH 28.2 (25.0-35.0) pg MCHC 32.3 (31.0-37.0) g/dL RDW 16.3 H (11.5-15.5) % Plt Count 337 (150-450) k/uL Neutrophils % 74 % Lymphocytes % 17 % Monocytes % 5 % Eosinophils % 1 % Basophils % 0 % Neutrophils # 6.3 (1.3-7.7) k/uL Lymphocytes # 1.5 (1.0-4.8) k/uL Monocytes # 0.5 (0-1.0) k/uL Eosinophils # 0.1 (0-0.7) k/uL Basophils # 0.0 (0-0.2) k/uL Anisocytosis Slight PT (9.0-12.0) sec INR (<1.2) APTT (22.0-30.0) sec Sodium 137 (137-145) mmol/L Potassium 4.6 (3.5-5.1) mmol/L Chloride 102 (98-107) mmol/L Carbon Dioxide 23 (22-30) mmol/L Anion Gap 12 mmol/L BUN 27 H (9-20) mg/dL Creatinine 0.94 (0.66-1.25) mg/dL Est GFR (CKD-EPI)AfAm >90 (>60 ml/min/1.73 sqM) Est GFR (CKD-EPI)NonAf 78 (>60 ml/min/1.73 sqM) Glucose 106 H (74-99) mg/dL Calcium 9.5 (8.4-10.2) mg/dL Total Bilirubin 0.5 (0.2-1.3) mg/dL AST 19 (17-59) U/L ALT 17 L (21-72) U/L Alkaline Phosphatase 29 L (38-126) U/L Total Creatine Kinase 155 (55-170) U/L CK-MB (CK-2) 3.2 H (0.0-2.4) ng/mL CK-MB (CK-2) Rel Index 2.1 Troponin I <0.012 (0.000-0.034) ng/mL NT-Pro-B Natriuret Pep pg/mL Total Protein 7.3 (6.3-8.2) g/dL Albumin 4.4 (3.5-5.0) g/dL Urine Color Urine Appearance (Clear) Urine pH (5.0-8.0) Ur Specific [place] (1.001-1.035) Urine Protein (Negative) Urine Glucose (UA) (Negative) Urine Ketones (Negative) Urine Blood (Negative) Urine Nitrite (Negative) Urine Bilirubin (Negative) Urine Urobilinogen (<2.0) mg/dL Ur Leukocyte Esterase (Negative) Influenza Type A RNA (Not Detectd) Influenza Type B (PCR) (Not Detectd) 04/29/18 04/29/18 04/29/18 Range/Units 21:30 21:30 22:07 WBC (3.8-10.6) k/uL RBC (4.30-5.90) m/uL Hgb (13.0-17.5) gm/dL Hct (39.0-53.0) % MCV (80.0-100.0) fL MCH (25.0-35.0) pg MCHC (31.0-37.0) g/dL RDW (11.5-15.5) % Plt Count (150-450) k/uL Neutrophils % % Lymphocytes % % Monocytes % % Eosinophils % % Basophils % % Neutrophils # (1.3-7.7) k/uL Lymphocytes # (1.0-4.8) k/uL Monocytes # (0-1.0) k/uL Eosinophils # (0-0.7) k/uL Basophils # (0-0.2) k/uL Anisocytosis PT 10.4 (9.0-12.0) sec INR 1.1 (<1.2) APTT 27.9 (22.0-30.0) sec Sodium (137-145) mmol/L Potassium (3.5-5.1) mmol/L Chloride (98-107) mmol/L Carbon Dioxide (22-30) mmol/L Anion Gap mmol/L BUN (9-20) mg/dL Creatinine (0.66-1.25) mg/dL Est GFR (CKD-EPI)AfAm (>60 ml/min/1.73 sqM) Est GFR (CKD-EPI)NonAf (>60 ml/min/1.73 sqM) Glucose (74-99) mg/dL Calcium (8.4-10.2) mg/dL Total Bilirubin (0.2-1.3) mg/dL AST (17-59) U/L ALT (21-72) U/L Alkaline Phosphatase (38-126) U/L Total Creatine Kinase (55-170) U/L CK-MB (CK-2) (0.0-2.4) ng/mL CK-MB (CK-2) Rel Index Troponin I (0.000-0.034) ng/mL NT-Pro-B Natriuret Pep 242 pg/mL Total Protein (6.3-8.2) g/dL Albumin (3.5-5.0) g/dL Urine Color Urine Appearance (Clear) Urine pH (5.0-8.0) Ur Specific [place] (1.001-1.035) Urine Protein (Negative) Urine Glucose (UA) (Negative) Urine Ketones (Negative) Urine Blood (Negative) Urine Nitrite (Negative) Urine Bilirubin (Negative) Urine Urobilinogen (<2.0) mg/dL Ur Leukocyte Esterase (Negative) Influenza Type A RNA Not Detected (Not Detectd) Influenza Type B (PCR) Not Detected (Not Detectd) 04/29/18 Range/Units 22:07 WBC (3.8-10.6) k/uL RBC (4.30-5.90) m/uL Hgb (13.0-17.5) gm/dL Hct (39.0-53.0) % MCV (80.0-100.0) fL MCH (25.0-35.0) pg MCHC (31.0-37.0) g/dL RDW (11.5-15.5) % Plt Count (150-450) k/uL Neutrophils % % Lymphocytes % % Monocytes % % Eosinophils % % Basophils % % Neutrophils # (1.3-7.7) k/uL Lymphocytes # (1.0-4.8) k/uL Monocytes # (0-1.0) k/uL Eosinophils # (0-0.7) k/uL Basophils # (0-0.2) k/uL Anisocytosis PT (9.0-12.0) sec INR (<1.2) APTT (22.0-30.0) sec Sodium (137-145) mmol/L Potassium (3.5-5.1) mmol/L Chloride (98-107) mmol/L Carbon Dioxide (22-30) mmol/L Anion Gap mmol/L BUN (9-20) mg/dL Creatinine (0.66-1.25) mg/dL Est GFR (CKD-EPI)AfAm (>60 ml/min/1.73 sqM) Est GFR (CKD-EPI)NonAf (>60 ml/min/1.73 sqM) Glucose (74-99) mg/dL Calcium (8.4-10.2) mg/dL Total Bilirubin (0.2-1.3) mg/dL AST (17-59) U/L ALT (21-72) U/L Alkaline Phosphatase (38-126) U/L Total Creatine Kinase (55-170) U/L CK-MB (CK-2) (0.0-2.4) ng/mL CK-MB (CK-2) Rel Index Troponin I (0.000-0.034) ng/mL NT-Pro-B Natriuret Pep pg/mL Total Protein (6.3-8.2) g/dL Albumin (3.5-5.0) g/dL Urine Color Yellow Urine Appearance Clear (Clear) Urine pH 6.0 (5.0-8.0) Ur Specific [place] 1.020 (1.001-1.035) Urine Protein Negative (Negative) Urine Glucose (UA) Negative (Negative) Urine Ketones Negative (Negative) Urine Blood Negative (Negative) Urine Nitrite Negative (Negative) Urine Bilirubin Negative (Negative) Urine Urobilinogen <2.0 (<2.0) mg/dL Ur Leukocyte Esterase Negative (Negative) Influenza Type A RNA (Not Detectd) Influenza Type B (PCR) (Not Detectd) Disposition Clinical Impression: Bronchitis, Failure of outpatient treatment, Hypertension, Dyspnea, Weakness Disposition: ADMITTED IP TO THIS HOSP Condition: Fair Is patient prescribed a controlled substance at d/c from ED?: No Referrals: Preston Prado DO [Primary Care Provider] - 1-2 days Time of Disposition: 00:13 Decision Date: 04/30/18 Decision Time: 00:13
[2018-04-30] MEDS ORDERED: IPRATROPIUM-ALBUTEROL 3 ML NEB INHALATION PRN (00:15)
[2018-04-30] MEDS ORDERED: PROMETHAZ-COD 6.25-10 MG/5 ML 5 ML CUP PO PRN (00:15)
[2018-04-30] MEDS ORDERED: ACETAMINOPHEN TAB 325 MG TAB PO PRN (00:18)
[2018-04-30] MEDS: methylPREDNISolone SOD SUCCI 125 MG/2 ML VIAL IV SCH ×2 (06:04→12:11)
[2018-04-30] MEDS ORDERED: BUDESONIDE 0.5 MG/2 ML NEBU INHALATION SCH (08:00)
[2018-04-30] MEDS: CARBIDOPA-LEVODOPA 25-100 MG 1 EACH TAB PO SCH (09:34)
[2018-04-30] MEDS: BISOPROLOL-HCTZ 10-6.25 MG 1 EACH TAB PO SCH (09:34)
[2018-04-30] MEDS: ENOXAPARIN 40 MG/0.4 ML SYRINGE SQ SCH (09:34)
[2018-04-30] MEDS: CARBIDOPA-LEVODOPA ER 50-200MG 1 EACH TABLET.ER PO SCH ×3 (09:34→21:49)
[2018-04-30] MEDS: FENOFIBRATE 160 MG TAB PO SCH (09:35)
[2018-04-30] MEDS: PANTOPRAZOLE 40 MG TABLET PO SCH (09:35)
--- NOTE | 2018-04-30 17:12 | P.CNPUL ---
History of Present Illness Consult date: 04/30/18 Reason for consult: dyspnea History of present illness: 78-year-old male patient with known history of Parkinson's disease, presented to the hospital because of worsening shortness of breath and cough and chest congestion. This been going on for the past few days and the patient was apparently bronchospastic and wheezy. He was seen in urgent care no patient based and the patient was given a course of Z-Eris and prednisone taper along with albuterol. He did not improve. He became worsening shortness of breath or worsen for that reason the end up coming into the hospital. The patient had vigorous cough [id number] and he was unable to take a good night's sleep because of his coughing. No reported aspiration the patient vomited he is able to swallow without any major difficulties. He has no previous aspiration. No recurrent pneumonias. No still smoking. No stiff COPD. No history of asthma. Most of DVT or pulmonary embolism. The patient had a chest x-ray that showed no acute abnormalities and patient is currently on. IV Levaquin. Is also on IV Solu-Medrol. Outpatient medications have been ordered resume. Review of Systems Constitutional: Reports fatigue, Reports lethargy, Reports weakness Eyes: denies blurred vision, denies bulging eye, denies decreased vision Ears: deny: decreased hearing, ear discharge, earache, tinnitus Ears, nose, mouth and throat: Denies headache, Denies sore throat Cardiovascular: Reports shortness of breath Respiratory: Reports dyspnea Gastrointestinal: Denies abdominal pain, Denies diarrhea, Denies nausea, Denies vomiting Genitourinary: Reports as per HPI Musculoskeletal: Reports as per HPI Musculoskeletal: absent: ankle pain, ankle stiffness, ankle swelling Integumentary: Denies pruritus, Denies rash Neurological: Reports ataxia, Reports balance difficulties, Reports change in speech, Reports gait dysfunction, Reports memory loss, Reports motor disturbance Psychiatric: Denies anxiety, Denies depression Endocrine: Reports as per HPI Hematologic/Lymphatic: Reports as per HPI Allergic/Immunologic: Reports as per HPI Past Medical History Past Medical History: GERD/Reflux, Hypertension Additional Past Medical History / Comment(s): Parkinson's disease History of Any Multi-Drug Resistant Organisms: None Reported Past Surgical History: Back Surgery, Cholecystectomy, Orthopedic Surgery Additional Past Surgical History / Comment(s): right knee Past Psychological History: No Psychological Hx Reported Smoking Status: Former smoker Past Alcohol Use History: None Reported Past Drug Use History: None Reported Medications and Allergies Home Medications Medication Instructions Recorded Confirmed Type Bisoprol/Hydrochlorothiazide [Ziac 1 tab PO DAILY 03/29/14 04/29/18 History 10-6.25 MG] Fenofibrate 160 mg PO DAILY 03/29/14 04/29/18 History Pantoprazole Sodium 40 mg PO DAILY 03/29/14 04/29/18 History Acetaminophen [Tylenol Arthritis] 650 mg PO BID PRN 04/19/17 04/29/18 History Carbidopa/Levodopa [Sinemet CR 1 tab PO TID 04/19/17 04/29/18 History 50-200 mg] rOPINIRole HCL [Requip Xl] 4 mg PO QAM 04/19/17 04/29/18 History Albuterol Inhaler [Ventolin Hfa 1 - 2 puff INHALATION RT-Q6H PRN 04/29/18 History Inhaler] Carbidopa-Levodopa 25-100 mg 1 tab PO DAILY 04/29/18 04/29/18 History [Sinemet 25-100] Cefuroxime Axetil [Ceftin] 500 mg PO Q12H 04/29/18 04/29/18 History methylPREDNISolone [Medrol Dose See Taper PO DIRECTED 04/29/18 04/29/18 History Pack] Allergies Allergy/AdvReac Type Severity Reaction Status Date / Time diltiazem HCl [From [facility] Allergy Mild Rash/Hives Verified 04/29/18 21:09 Beta-Blockers Allergy Rash/Hives Verified 04/29/18 21:09 (Beta-Adrenergic Bloc Physical Exam Vitals: Vital Signs Temp Pulse Pulse Resp BP BP Pulse Ox 04/30/18 15:00 96.9 F L 72 172/80 95 04/30/18 07:15 80 174/80 93 L 04/30/18 01:58 97.4 F L 99 16 181/93 96 04/30/18 01:07 88 04/30/18 01:00 86 20 181/86 04/30/18 00:56 85 04/30/18 00:20 80 19 193/97 04/29/18 23:40 83 18 189/103 92 L 04/29/18 22:39 69 10/23/18 22:25 60 04/29/18 20:52 20 04/29/18 20:40 57 L 18 171/93 97 04/29/18 20:19 97.9 F 64 18 163/83 96 Intake and Output 04/30/18 04/30/18 04/30/18 06:59 14:59 22:59 Intake Total 200 900 Balance 200 900 Intake: Intake, IV Titration 200 Amount Sodium Chloride 0.9% 1, 200 000 ml @ 100 mls/hr IV . Q10H STA Rx#:[id number] Oral 900 Other: Voiding Method Diaper # Voids 1 1 Gen. appearance the patient is calm and comfortable. He has pokers facies. This is typical of Parkinson's disease. Head exam was generally normal. There was no scleral icterus or corneal arcus. Mucous membranes were moist. Neck was supple and without jugular venous distension, thyromegaly, or carotid bruits. Carotids were easily palpable bilaterally. There was no adenopathy. Lungs sounds are diminished bilaterally along with some few scattered expiratory wheezes. Cardiac exam revealed the PMI to be normally situated and sized. The rhythm was regular and no extrasystoles were noted during several minutes of auscultation. The first and second heart sounds were normal and physiologic splitting of the second heart sound was noted. There were no murmurs, rubs, clicks, or gallops. Abdominal exam revealed normal bowel sounds. The abdomen was soft, non-tender, and without masses, organomegaly, or appreciable enlargement of the abdominal aorta. Examination of the extremities revealed easily palpable radial, femoral and pedal pulses. There was no cyanosis, clubbing or edema. Examination of the skin revealed no evidence of significant rashes, suspicious appearing nevi or other concerning lesions. Neurologically the patient has some psychomotor slowing related to Parkinson's disease. Results - Laboratory Findings CBC and BMP: 04/29/18 21:30 04/29/18 21:30 PT/INR, D-dimer PT 10.4 sec (9.0-12.0) 04/29/18 21:30 INR 1.1 (<1.2) 04/29/18 21:30 Abnormal lab findings: Abnormal Labs 04/29/18 04/29/18 04/29/18 21:30 21:30 21:30 RDW 16.3 H BUN 27 H Glucose 106 H ALT 17 L Alkaline Phosphatase 29 L CK-MB (CK-2) 3.2 H - Diagnostic Findings Chest x-ray: image reviewed Assessment and Plan Plan: Assessment 1 acute bronchitis with secondary shortness of breath/bronchospasm wheeze. Rule out underlying aspiration 2 Parkinson's disease 3 hypertension 4 acid reflux Plan Aspiration precautions. Check swallow evaluation. Continue Pulmicort Respules. Continue DuoNeb about she was around the clock. IV Solu Medrol. IV Levaquin. Chest x-ray was reviewed and the findings were 9 and there was no evidence of a pneumonia. Continue promethazine with codeine. We'll continue to follow. Outpatient medications have been ordered resume.
[2018-04-30] MEDS ORDERED: ALPRAZolam 0.25 MG TAB PO PRN (17:37)
[2018-04-30] MEDS ORDERED: ONDANSETRON 4 MG/2 ML VIAL IVP PRN (17:37)
[2018-04-30] MEDS ORDERED: CALCIUM CARBONATE 500 MG CHEWABLE PO PRN (17:37)
[2018-04-30] MEDS ORDERED: MELATONIN 3 MG TABLET PO PRN (17:37)
[2018-04-30] MEDS ORDERED: MAGNESIUM HYDROXIDE 2,400 MG/10 ML CUP PO PRN (17:37)
[2018-04-30] MEDS ORDERED: LACTULOSE 20 GM/30 ML CUP PO PRN (17:37)
[2018-04-30] MEDS: guaiFENesin 600 MG TABLET.ER PO SCH (18:08)
--- NOTE | 2018-04-30 18:20 | HP ---
HISTORY AND PHYSICAL DATE OF ADMISSION: 04/30/2018 DATE OF SERVICE: 04/30/2018 PRESENTING COMPLAINT: Shortness of breath, cough. HISTORY OF PRESENTING COMPLAINT: This is a very pleasant 78-year-old patient of Dr. Prado. Chronic stable medical conditions include GERD, hypertension, Parkinson disease. 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 The patient for a few days has been struggling with shortness of breath, cough, and has had rounds of antibiotics and steroids. He feels he is really congested, not able to bring up much phlegm. Patient when he does bring it up sometimes it is clear. His appetite has gone down. He feels congested in the chest. No obvious fever or chills. Weak and tired. Hence he was brought into the hospital. The patient was admitted through the ER and Pulmonary was consulted. His is at the bedside. REVIEW OF SYSTEMS: CONSTITUTIONAL: Tired. HEENT: None. RESPIRATORY: As above. CARDIOVASCULAR: None. GASTROINTESTINAL: None. GENITOURINARY: None. MUSCULOSKELETAL: None. DERMATOLOGICAL: None. HEMATOLOGICAL: None. LYMPHATICS: None. PSYCHIATRY: Slightly forgetful. NEUROLOGICAL: Tremors and weakness. The patient does shuffle. PAST MEDICAL HISTORY: 1. GERD. 2. Hypertension. 3. Parkinson disease. PAST SURGICAL HISTORY: 1. Back surgery. 2. Cholecystectomy. 3. Right knee surgery. SOCIAL HISTORY: . 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 No alcohol. Did smoke in the past. FAMILY HISTORY: Reviewed; noncontributory to presentation. HOME MEDICATIONS: 1. Ceftin 500 mg p.o. q.12. 2. Ventolin HFA 1 or 2 puffs q.6 p.r.n. 3. Medrol Dosepak. 4. Sinemet 25/100 one tablet p.o. daily. 5. Requip XL 4 mg p.o. daily. 6. Protonix 40 mg p.o. daily. 7. Tricor 160 mg p.o. daily. 8. Sinemet CR 50/200 one tablet p.o. t.i.d. 9. Ziac 10/6.25 one tablet p.o. daily. 10.Tylenol Arthritis 650 mg p.o. b.i.d. p.r.n. ALLERGIES: 1. CARDIZEM. 2. BETA WILFRIDO. PHYSICAL EXAMINATION: VITAL SIGNS ON PRESENTATION: Temperature 97.9, pulse 64, respiration 18, blood pressure 163/83, pulse ox 96% on room air. GENERAL APPEARANCE: Well built; BMI 30.5. Lying in bed, tired-appearing. EYES: Pupils equal. Conjunctivae normal. HEENT: External appearance of nose and ears normal. Oral cavity normal. NECK: JVD not raised. Mass not palpable. RESPIRATORY: Effort increased. LUNGS: Diminished breath sounds. Occasional crackles. CARDIOVASCULAR: First and second sounds normal. No edema. ABDOMEN: Soft, non-tender. Liver and spleen not palpable. LYMPHATIC: No lymph node palpable in neck or axillae. PSYCHIATRY: Alert and oriented x3. Mood and affect normal. NEUROLOGICAL: Pupils equal. No facial asymmetry. Patient has cogwheel rigidity, more so on the left side. Patient's gait was reported to be shuffling. INVESTIGATIONS: White count 8.6, hemoglobin 13.8, platelets 337, potassium 4.6, BUN 27, creatinine 0.94. Troponin negative. ProBNP 242. UA negative. Influenza A and B negative. Chest x-ray film, personally reviewed by me, shows a scant infiltrate to the right lower lobe. EKG tracing, personally reviewed by me, shows normal sinus rhythm. ASSESSMENT: 1. This is a patient who has had a few days of cough, sputum, weak, tired, decreased appetite, treated with antibiotic as an outpatient; seems to have acute exacerbation of chronic obstructive pulmonary disease. Given that patient is a previous smoker and possibly has underlying right-sided viral pneumonitis, acute bacterial component cannot be ruled out. Patient's white count otherwise is normal. There is no fever. 2. Idiopathic Parkinson's disease. 3. Gastroesophageal reflux disease. 4. Essential hypertension. 5. 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 PLAN: The patient will be started on bronchodilators, IV steroids, inhaled steroids. Will also add Mucinex and humidify the oxygen. Will also try to use a flutter valve and add Mucinex. Sputum will be sent for Gram stain and culture. Other home medications are resumed. Care was discussed with the patient and his . Questions were answered. Dr. Smith was consulted. MMODL / IJN: [id number] /
[2018-04-30] MEDS: IPRATROPIUM-ALBUTEROL 3 ML NEB INHALATION SCH ×2 (20:26→20:27)
[2018-04-30] MEDS: BUDESONIDE 1 MG/2 ML NEBU INHALATION SCH (20:27)
[2018-04-30] MEDS ORDERED: LEVOFLOXACIN 750MG-D5W PMX 750 MG in DEXTROSE/WATER 1 150ML.BAG IVPB SCH (21:00)
[2018-05-01] MEDS: methylPREDNISolone SOD SUCCI 40 MG/ML 1 ML VIAL IV SCH ×2 (00:31→10:21)
[2018-05-01 01:37] VITALS: TEMP 97.6
[2018-05-01] MEDS: IPRATROPIUM-ALBUTEROL 3 ML NEB INHALATION SCH ×5 (03:50→14:55)
[2018-05-01 07:06] LABS: Glucose,Whole Blood 218 mg/dL (75-99)
[2018-05-01] MEDS: BUDESONIDE 1 MG/2 ML NEBU INHALATION SCH (07:31)
[2018-05-01 10:19] VITALS: BP 146/84; RESP 16
[2018-05-01] MEDS: FENOFIBRATE 160 MG TAB PO SCH (10:20)
[2018-05-01] MEDS: BISOPROLOL-HCTZ 10-6.25 MG 1 EACH TAB PO SCH (10:20)
[2018-05-01] MEDS: CARBIDOPA-LEVODOPA ER 50-200MG 1 EACH TABLET.ER PO SCH (10:20)
[2018-05-01] MEDS: PANTOPRAZOLE 40 MG TABLET PO SCH (10:21)
[2018-05-01] MEDS: CARBIDOPA-LEVODOPA 25-100 MG 1 EACH TAB PO SCH (10:21)
[2018-05-01] MEDS: ENOXAPARIN 40 MG/0.4 ML SYRINGE SQ SCH (10:21)
[2018-05-01] MEDS: guaiFENesin 600 MG TABLET.ER PO SCH (10:21)
[2018-05-01 11:10] VITALS: PULSE 72
--- NOTE | 2018-05-01 13:18 | P.PN ---
Subjective Progress Note Date: 05/01/18 Principal diagnosis: Acute bronchitis with secondary shortness of breath/bronchospasm, wheeze. Rule out underlying aspiration 78-year-old male patient with known history of Parkinson's disease, presented to the hospital because of worsening shortness of breath and cough and chest congestion. This been going on for the past few days and the patient was apparently bronchospastic and wheezy. He was seen in urgent care no patient based and the patient was given a course of Z-Eris and prednisone taper along with albuterol. He did not improve. He became worsening shortness of breath or worsen for that reason the end up coming into the hospital. The patient had vigorous cough [id number] and he was unable to take a good night's sleep because of his coughing. No reported aspiration the patient vomited he is able to swallow without any major difficulties. He has no previous aspiration. No recurrent pneumonias. No still smoking. No stiff COPD. No history of asthma. Most of DVT or pulmonary embolism. The patient had a chest x-ray that showed no acute abnormalities and patient is currently on. IV Levaquin. Is also on IV Solu-Medrol. Outpatient medications have been ordered resume. On 05/01/2018 patient seen in follow-up. Breathing easier today, patient has swallow evaluation, and passed. Less coughing, less congestion. Remains pulse ox is 95%, patient is afebrile. Patient has a weak cough. No acute distress. No new labs a chest x-rays. Patient has been treated with a combination of Mucinex, nebulized treatments, Levaquin, and IV steroids, and responding quite nicely to treatments. Objective - Vital Signs Vital signs: Vital Signs Temp 97.6 F 05/01/18 10:19 Pulse 72 05/01/18 11:18 Resp 16 05/01/18 10:19 BP 146/84 05/01/18 10:19 Pulse Ox 94 L 05/01/18 10:19 Intake & Output 04/30/18 05/01/18 05/01/18 18:59 06:59 18:59 Intake Total 900 125 Balance 900 125 Intake: Oral 900 125 Other: Voiding Method Diaper Incontinent Incontinent Incontinent # Voids 3 1 - Exam Gen. appearance the patient is calm and comfortable. He has pokers facies. This is typical of Parkinson's disease. Head exam was generally normal. There was no scleral icterus or corneal arcus. Mucous membranes were moist. Neck was supple and without jugular venous distension, thyromegaly, or carotid bruits. Carotids were easily palpable bilaterally. There was no adenopathy. Lungs sounds are diminished bilaterally along with minimal end expiratory wheezes Cardiac exam revealed the PMI to be normally situated and sized. The rhythm was regular and no extrasystoles were noted during several minutes of auscultation. The first and second heart sounds were normal and physiologic splitting of the second heart sound was noted. There were no murmurs, rubs, clicks, or gallops. Abdominal exam revealed normal bowel sounds. The abdomen was soft, non-tender, and without masses, organomegaly, or appreciable enlargement of the abdominal aorta. Examination of the extremities revealed easily palpable radial, femoral and pedal pulses. There was no cyanosis, clubbing or edema. Examination of the skin revealed no evidence of significant rashes, suspicious appearing nevi or other concerning lesions. Neurologically the patient has some psychomotor slowing related to Parkinson's disease. - Labs CBC & Chem 7: 04/29/18 21:30 04/29/18 21:30 Labs: Abnormal Lab Results - Last 24 Hours (Table) 05/01/18 Range/Units 06:55 POC Glucose (mg/dL) 218 H (75-99) mg/dL Microbiology - Last 24 Hours (Table) 04/29/18 21:30 Blood Culture - Preliminary Blood No Growth after 24 hours Assessment and Plan Plan: Assessment 1 acute bronchitis with secondary shortness of breath/bronchospasm wheeze. Rule out underlying aspiration 2 Parkinson's disease 3 hypertension 4 acid reflux Plan Patient passed bedside swallow evaluation. Maintenance exam patient reports breathing easier, less congested, less wheezy. Afebrile, we will discontinue patient's IV Solu-Medrol, start him on prednisone 30 mg daily, continue oral course of antibiotics, no acute events overnight. Maintain aspiration precautions. From pulmonary perspective patient is stable for discharge home today on short course of prednisone taper, oral antibiotics. I performed a history & physical examination of the patient and discussed their management with my nurse practitioner, Yarely Ravi. I reviewed the nurse practitioner's note and agree with the documented findings and plan of care. Lung sounds are diminished with minimal end expiratory wheezes. The findings and the impression was discussed with the patient. I attest to the documentation by the nurse practitioner. Time with Patient: Less than 30
[2018-05-01] MEDS ORDERED: LEVOFLOXACIN 750 MG TAB PO SCH (21:00)
[2018-05-02] MEDS ORDERED: predniSONE 10 MG TAB PO SCH (09:00)
--- NOTE | 2018-05-02 09:10 | DS ---
DISCHARGE SUMMARY DATE OF ADMISSION: 04/30/2018 DATE OF DISCHARGE: 05/01/2018 FINAL DIAGNOSES: 1. Acute viral pneumonitis. 2. Idiopathic Parkinson's disease. 3. Gastroesophageal reflux disease. 4. Essential hypertension. 5. 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 6. Poor cough reflex. HOSPITAL COURSE: This is a patient who presented short of breath, cough, going on for a few days with no fever, no white count. Patient has got a poor cough, not able to expectorate well. Mucinex was added. Patient is given a flutter valve. Given some steroids, breathing treatments to which he was doing much better. Also was hydrated. The patient is doing much better today. Care was discussed with the keen to take it home after my initial discharge diagnosis idiopathic Parkinson disease, GERD, essential hypertension, gait dysfunction due to Parkinson's disease. Medical debility. CONSULTATION: Dr. Smith from Pulmonary. PHYSICAL EXAMINATION: Temperature 97.6, pulse 94, respirations 16, blood pressure 146/84, pulse ox 94% on room air. NEURO: Cogwheel rigidity. LUNGS: Decreased breath sounds. Poor cough, DISCHARGE MEDICATIONS: 1. Ziac 10/6.25 one tablet p.o. daily. 2. Tricor 160 mg p.o. daily. 3. Pantoprazole 40 mg p.o. daily. 4. Tylenol Arthritis 650 mg p.o. b.i.d. p.r.n. 5. Sinemet CR 50/200 one tablet p.o. t.i.d. 6. Requip 4 mg p.o. daily. 7. Sinemet 20/100 one tablet p.o. daily. 8. DuoNeb t.i.d. 9. Levaquin 750 mg q.24 three tablets. 10.Melatonin 3 mg q.h.s. p.r.n. 11.Mucinex 200 mg p.o. q.12. 12.Prednisone taper. Patient instructed about the flutter valve and to use inspiratory spirometer. This was discussed in detail with the patient and . Questions were answered. Discussion and discharge planning more than 35 minutes. Follow up with Dr. Prado in 1 week and follow up with his purse maker. MMODL / IJN: [id number] /
== END 2018-05-01 16:09 | disposition home or self-care (01) ==
LOC: EC 20:14 → 4SSUR 04-30 00:13
PROVIDERS: ADMIT Hospitalist; ATTEND Hospitalist
DX: J12.9 Viral pneumonia, unspecified (principal); I10 Essential (primary) hypertension; K21.9 Gastro-esophageal reflux disease without esophagitis; G20 Parkinson's disease; G47.00 Insomnia, unspecified; R26.9 Unspecified abnormalities of gait and mobility; R53.81 Other malaise; Z90.49 Acquired absence of other specified parts of digestive tract; Z79.899 Other long term (current) drug therapy; Z87.891 Personal history of nicotine dependence; Z88.8 Allergy status to other drugs, medicaments and biological substances
CPT/HCPCS: 96376 ×2; 96361 ×3; 96366; 96372 ×2; 96365; 96375 ×2; 99285; 36415; 94668; 94640 ×5; 94667; 93005; 92610; 83880; 80053; 82550; 82553; 84484; 85025; 85610; 85730; 81003; 87040; 87502; 83036; 71046; G0378 ×2; J0360; J2920; J2930 ×2; J1650 ×2; J1956 ×2

== ENCOUNTER 2018-07-11 14:54 | Emergency (ER) | payer MEDICARE, BC ==
[2018-07-11 15:11] VITALS: RESP 18
--- NOTE | 2018-07-11 16:17 | ED ---
Fall HPI - General Chief Complaint: Fall Stated Complaint: Fall Time Seen by Provider: 07/11/18 15:21 Source: patient, EMS Mode of arrival: EMS - History of Present Illness Initial Comments: This is a 78-year-old male the ER. Troponin fall. Patient presents to ER for evaluation of fall and hitting his head. Patient was walking through the [facility], [place] to check a deer he did lose his balance trip due to the mud, he then Slipped and landed on his left side of his face with mild abrasion to his head. 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 Place Fall Occurred: other Loss of Consciousness: none Prolonged Down Time?: no Symptoms Prior to Fall: none Location: head Severity: mild Severity scale (1-10): 1 Quality: other (no pain) Context: tripped/slipped Associated Symptoms: denies - Related Data Home Medications Medication Instructions Recorded Confirmed Bisoprol/Hydrochlorothiazide [Ziac 1 tab PO DAILY 03/29/14 07/11/18 10-6.25 MG] Fenofibrate 160 mg PO DAILY 03/29/14 07/11/18 Pantoprazole Sodium 40 mg PO DAILY 03/29/14 07/11/18 Acetaminophen [Tylenol Arthritis] 650 mg PO BID PRN 04/19/17 07/11/18 Carbidopa/Levodopa [Sinemet CR 1 tab PO TID 04/19/17 07/11/18 50-200 mg] rOPINIRole HCL [Requip Xl] 4 mg PO QAM 04/19/17 07/11/18 Carbidopa-Levodopa 25-100 mg 1 tab PO DAILY@1900 04/29/18 07/11/18 [Sinemet 25-100 mg] Sertraline [Zoloft] 50 mg PO DAILY 07/11/18 07/11/18 Allergies Allergy/AdvReac Type Severity Reaction Status Date / Time diltiazem HCl [From [facility]] Allergy Mild Rash/Hives Verified 07/11/18 16:34 Beta-Blockers Allergy Rash/Hives Verified 07/11/18 16:34 (Beta-Adrenergic Bloc Review of Systems ROS Statement: Those systems with pertinent positive or pertinent negative responses have been documented in the HPI. ROS Other: All systems not noted in ROS Statement are negative. Past Medical History Past Medical History: GERD/Reflux, Hypertension Additional Past Medical History / Comment(s): Parkinson's disease History of Any Multi-Drug Resistant Organisms: None Reported Past Surgical History: Back Surgery, Cholecystectomy, Orthopedic Surgery Additional Past Surgical History / Comment(s): right knee Past Psychological History: No Psychological Hx Reported Smoking Status: Former smoker Past Alcohol Use History: None Reported Past Drug Use History: None Reported General Exam Limitations: no limitations General appearance: alert, in no apparent distress Head exam: Present: normocephalic, normal inspection. Absent: atraumatic (left fore head abrasion) Eye exam: Present: normal appearance, PERRL, EOMI. Absent: scleral icterus, conjunctival injection, periorbital swelling ENT exam: Present: normal exam, mucous membranes moist Neck exam: Present: normal inspection. Absent: tenderness, meningismus, lymphadenopathy Respiratory exam: Present: normal lung sounds bilaterally. Absent: respiratory distress, wheezes, rales, rhonchi, stridor Cardiovascular Exam: Present: regular rate, normal rhythm, normal heart sounds. Absent: systolic murmur, diastolic murmur, rubs, gallop, clicks GI/Abdominal exam: Present: soft, normal bowel sounds. Absent: distended, tenderness, guarding, rebound, rigid Extremities exam: Present: normal inspection, full ROM, normal capillary refill. Absent: tenderness, pedal edema, joint swelling, calf tenderness Back exam: Present: normal inspection Neurological exam: Present: alert, oriented X3, CN II-XII intact Psychiatric exam: Present: normal affect, normal mood Skin exam: Present: warm, dry, intact, normal color. Absent: rash Course Vital Signs 07/11/18 07/11/18 15:00 17:07 Temperature 98.1 F 97.9 F Pulse Rate 67 70 Respiratory 18 18 Rate Blood Pressure 127/73 138/78 O2 Sat by Pulse 98 98 Oximetry Medical Decision Making - Medical Decision Making Social male the ER for evaluation status post trip and fall. Mild abrasion to left head, CT is negative. Patient can be discharged home - Radiology Data Radiology results: report reviewed (CT brain and C spine is negative for traumatic injury), image reviewed Disposition Clinical Impression: Fall, Facial abrasion Disposition: HOME SELF-CARE Instructions: Fall Prevention for Older Adults (ED), Abrasion (ED) Is patient prescribed a controlled substance at d/c from ED?: No Referrals: Preston Prado DO [Primary Care Provider] - 1-2 days
--- NOTE | 2018-07-11 16:34 | CT ---
EXAMINATION TYPE: CT brain samantha melgar con DATE OF EXAM: 07/11/2018 COMPARISON: None HISTORY: Fall with left supraorbital injury. CT DLP: 1440.3 mGycm, Automated exposure control for dose reduction was used. CONTRAST: Patient injected with 0 mL of Isovue 300. CT of the brain is performed utilizing 3 mm thick sections through the posterior fossa and 3 mm thick sections through the remaining calvarium. Study is performed within 24 hours of arrival to the hospital. No abnormal hyperdensity is present to suggest an acute intracranial hemorrhage. No mass lesion is evident. No acute infarcts are evident. Ventricles and sulci are mildly prominent compatible with age-related atrophy Paranasal sinuses and mastoid air cells within the [id number] are clear. IMPRESSIONS: 1. No acute intracranial process CT cervical spine. COMPARISON: None CT of the cervical spine is performed in the axial plane at 2 mm thick sections. Reconstructed image s in the coronal, and sagittal plane are reviewed on the computer. No acute fractures are evident. Vertebral body alignment is normal. There is loss of disc height C4-5 C5-6 C6-7. Some endplate spurring is present at these levels. No sp inal canal stenosis present. There is right foraminal narrowing C5-6 on the left foraminal narrowing C4-5 right foraminal narrowing at C6-7 due to uncovertebral joint hypertrophy. Vertebral body heights are preserved. No spinal canal stenosis is evident. IMPRESSIONS: 1. Degenerative disc changes and foraminal narrowing mid cervical spine discussed above. 2. No acute osseous abnormality.
[2018-07-11 17:08] VITALS: BP 138/78; PULSE 70; TEMP 97.9
== END 2018-07-11 17:01 | disposition home or self-care (01) ==
LOC: EC 14:54
DX: S00.91XA Abrasion of unspecified part of head, initial encounter (principal); K21.9 Gastro-esophageal reflux disease without esophagitis; I10 Essential (primary) hypertension; G20 Parkinson's disease; Z87.891 Personal history of nicotine dependence; Z79.899 Other long term (current) drug therapy; Z88.8 Allergy status to other drugs, medicaments and biological substances; W01.198A Fall on same level from slipping, tripping and stumbling with subsequent striking against other object, initial encounter; Y93.01 Activity, walking, marching and hiking; Y92.009 Unspecified place in unspecified non-institutional (private) residence as the place of occurrence of the external cause
CPT/HCPCS: 70450; 72125; 99284

== ENCOUNTER 2018-09-15 18:13 | Emergency (ER) | payer MEDICARE, BC ==
[2018-09-15] MEDS ORDERED: DIPH,PERTUS(ACELL)TETVAC-LF 0.5 ML VIAL IM ONE (18:24)
--- NOTE | 2018-09-15 18:34 | ED ---
Fall HPI - General Chief Complaint: Fall Stated Complaint: Fall Time Seen by Provider: 09/15/18 18:13 Source: patient, EMS, RN notes reviewed Mode of arrival: EMS - History of Present Illness Initial Comments: This is a 78-year-old male history of Parkinson's disease hypertension was walking today when he tripped over some uneven cement. He did fall forward striking his face and nose and hands. He did not lose any consciousness he denies any overt neck pain but he has facial pain. He also did sustain abrasions to both hands. He has some tenderness and pain to this area he states no back pain no pelvic or lower extremity pain. He does have a history of a right knee replacement. He is not on any anticoagulants at this time. No other modifying factors at this time. MD Complaint: fall - Related Data Home Medications Medication Instructions Recorded Confirmed Bisoprol/Hydrochlorothiazide [Ziac 1 tab PO DAILY 03/29/14 09/15/18 10-6.25 MG] Fenofibrate 160 mg PO DAILY 03/29/14 09/15/18 Pantoprazole Sodium 40 mg PO DAILY 03/29/14 09/15/18 Acetaminophen [Tylenol Arthritis] 650 mg PO BID PRN 04/19/17 09/15/18 Carbidopa/Levodopa [Sinemet CR 1 tab PO TID 04/19/17 09/15/18 50-200 mg] rOPINIRole HCL [Requip Xl] 4 mg PO QAM 04/19/17 09/15/18 Carbidopa-Levodopa 25-100 mg 1 tab PO DAILY@1900 04/29/18 09/15/18 [Sinemet 25-100 mg] Sertraline [Zoloft] 50 mg PO DAILY 07/11/18 09/15/18 ALPRAZolam [Xanax] 0.5 mg PO DAILY PRN 09/15/18 09/15/18 Allergies Allergy/AdvReac Type Severity Reaction Status Date / Time diltiazem HCl [From Cardizem] Allergy Mild Rash/Hives Verified 09/15/18 19:16 Beta-Blockers Allergy Rash/Hives Verified 09/15/18 19:16 (Beta-Adrenergic Bloc Review of Systems ROS Statement: Those systems with pertinent positive or pertinent negative responses have been documented in the HPI. ROS Other: All systems not noted in ROS Statement are negative. Past Medical History Past Medical History: GERD/Reflux, Hypertension Additional Past Medical History / Comment(s): Parkinson's disease History of Any Multi-Drug Resistant Organisms: None Reported Past Surgical History: Back Surgery, Cholecystectomy, Orthopedic Surgery Additional Past Surgical History / Comment(s): right knee Past Psychological History: No Psychological Hx Reported Smoking Status: Former smoker Past Alcohol Use History: None Reported Past Drug Use History: None Reported General Exam - General Exam Comments Initial Comments: This is a well-developed well-nourished awake alert oriented 3 male who does demonstrate a [place] Coma Scale of 15. Limitations: no limitations General appearance: alert, in no apparent distress Head exam: Present: normocephalic, other (Multiple facial abrasions noted especially around the inferior orbit and right above both eyebrows. There is some edema seen to the lower anterior midforehead. Abrasions to the knees on and over the upper lip and philtrum.) Eye exam: Present: normal appearance, PERRL, EOMI. Absent: scleral icterus, conjunctival injection, periorbital swelling Pupils: Present: normal accommodation ENT exam: Present: normal oropharynx, mucous membranes moist, TM's normal bilaterally, other (Dry blood seen in pairs) Neck exam: Present: normal inspection, other (He patient is immobilized with a collar and tape his he did not fit into a c-collar.). Absent: tenderness, lymphadenopathy ( especially in the) Respiratory exam: Present: normal lung sounds bilaterally. Absent: respiratory distress, wheezes, rales, rhonchi, stridor Cardiovascular Exam: Present: regular rate, normal rhythm, normal heart sounds. Absent: systolic murmur, diastolic murmur, rubs, gallop, clicks GI/Abdominal exam: Present: soft, normal bowel sounds. Absent: distended, tenderness, guarding, rebound, rigid Rectal exam: Present: deferred Extremities exam: Present: full ROM, tenderness, normal capillary refill, other (She does have multiple abrasions seen over the dorsal aspects of both hands abrasion seen over the second third fourth and fifth fingers also the fifth dorsal finger on the left hand some deformity noted over the left proximal index finger which is old from her previous injury. Also an abrasion seen over the dorsal distal hand between the second third metacarpal phalangeal joints. No overt step-off or crepitation.). Absent: pedal edema, joint swelling, calf tenderness Back exam: Present: normal inspection, full ROM. Absent: tenderness, CVA tenderness (R), CVA tenderness (L), paraspinal tenderness, vertebral tenderness Neurological exam: Present: alert, oriented X3, CN II-XII intact Psychiatric exam: Present: normal affect, normal mood Skin exam: Present: warm, dry, normal color. Absent: intact, rash Course Vital Signs 09/15/18 18:22 Temperature 98.3 F Pulse Rate 73 Respiratory 18 Rate Blood Pressure 172/83 O2 Sat by Pulse 97 Oximetry - Reevaluation(s) Reevaluation #1: 09/15/18 20:47 Patient remains awake alert oriented 3 with a [place] Coma Scale of 15. He does demonstrate a frontal skull fracture and to the frontal sinus. No evidence of any bleeding at this time facial bone x-rays were not done/CAT scan. I suspect clinically a nasal fracture. Medical Decision Making - Medical Decision Making I did discuss findings with patient and his also with Dr. Bowman at [facility] patient be transferred there for evaluation for skull fracture facial trauma. - Radiology Data Radiology results: report reviewed (I did review the imaging and report or is evidence of a skull fracture and to the frontal sinus on the right forehead region. C-spine is unremarkable soft tissue appears be unremarkable), image reviewed Disposition Clinical Impression: Fall, Skull fracture without loss of consciousness, Facial abrasion, Facial contusion, Hand abrasion, Knee abrasion, Nasal contusion Disposition: OTHER INSTITUTION NOT DEFINED Condition: Stable Referrals: Preston Prado DO [Primary Care Provider] - 1-2 days - Out of Hospital Transfer - Req. Specs Out of Hospital Transfer - Requested Specifics: Other Emergency Center
--- NOTE | 2018-09-15 18:50 | XR ---
EXAMINATION TYPE: XR hand complete bilateral DATE OF EXAM: 09/15/2018 CLINICAL HISTORY: Bilateral hand pain after fall injury. TECHNIQUE: Frontal, lateral and oblique images of the bilateral hands are obtained. COMPARISON: None. FINDINGS: Demineralization is present which is noted to lower radiographic sensitivity. There is no acute fracture/dislocation evident in either hand. There is severe radiocarpal joint space loss left hand. There is mild to moderate narrowing throughou t the phalanges with multilevel mild spurring including involvement at MCP joints. Moderate spurring and narrowing base of first metacarpal is present. Mild diffuse soft tissue swelling is present. Images of right hand show similar mild to moderate narrowing and mild spurring throughout the phalang es less prominent at PIP and DIP joints versus left hand but more prominent at second and third MCP j oints. Overlying soft tissue is unremarkable. IMPRESSION: There is no acute fracture or dislocation in either hand.
--- NOTE | 2018-09-15 19:08 | CT ---
EXAMINATION TYPE: CT brain cspine wo con DATE OF EXAM: 09/15/2018 COMPARISON: CT brain and cervical spine July 11, 2018 HISTORY: Fall injury with headache and neck pain. CT DLP: 1484.7 mGycm. Automated Exposure Control for Dose Reduction was Utilized. TECHNIQUE: CT scan of the head and cervical spine are performed without contrast. FINDINGS: There is no acute intracranial hemorrhage or midline shift. There is ventricular and sulc al prominence redemonstrated. There is acute comminuted minimally displaced acute fracture deformity throughout outer wall of right frontal sinus axial image 15 for reference. There is associated oh pat corbin opacification into the right frontal sinus and anterior ethmoid sinuses bilaterally. The globes a re intact bilaterally. Cervical spine is visualized in its entirety from C1 through upper thoracic levels and demonstrates s traightened alignment without evidence of acute fracture or dislocation. Prevertebral soft tissue ap pears within normal limits. The C1-C2 articulation is within normal limits on the coronal images. Vertebral body heights are maintained. There is moderate to advanced disc space narrowing with modera te spurring C4-C5 through C6-C7 levels. Posterior spur disc complexes are effacing anterior thecal sa c at these levels on sagittal images. Review of axial images shows uncovertebral facet degenerative c hanges bilaterally at several levels contributing to bilateral neural foraminal narrowing this is mos t prominent right C2-C3 and left C3-C4 levels. Visualized lung apices are clear. No significant jewell e from prior. IMPRESSION: 1. There is no acute fracture or dislocation evident in the cervical spine. 2. No acute intracranial hemorrhage or midline shift is seen. Stable moderate diffuse cerebral atroph y redemonstrated. New acute comminuted minimally displaced fracture through outer wall of right front al sinus without associated opacification or patchy hemorrhage into the right frontal and anterior et hmoid sinuses bilaterally.
[2018-09-15 21:04] VITALS: RESP 19
[2018-09-15 22:48] VITALS: BP 159/97; PULSE 66; TEMP 98.2
== END 2018-09-15 22:48 | disposition other institution (70) ==
LOC: EC 18:13
DX: S02.91XA Unspecified fracture of skull, initial encounter for closed fracture (principal); S00.83XA Contusion of other part of head, initial encounter; S00.33XA Contusion of nose, initial encounter; S80.211A Abrasion, right knee, initial encounter; S60.512A Abrasion of left hand, initial encounter; S60.511A Abrasion of right hand, initial encounter; S60.413A Abrasion of left middle finger, initial encounter; S60.415A Abrasion of left ring finger, initial encounter; S60.417A Abrasion of left little finger, initial encounter; S00.511A Abrasion of lip, initial encounter; R40.2412 Glasgow coma scale score 13-15, at arrival to emergency department; K21.9 Gastro-esophageal reflux disease without esophagitis; I10 Essential (primary) hypertension; G20 Parkinson's disease; Z23 Encounter for immunization; Z87.891 Personal history of nicotine dependence; Z90.49 Acquired absence of other specified parts of digestive tract; Z96.651 Presence of right artificial knee joint; Z98.890 Other specified postprocedural states; Z79.899 Other long term (current) drug therapy; Z88.8 Allergy status to other drugs, medicaments and biological substances; W01.198A Fall on same level from slipping, tripping and stumbling with subsequent striking against other object, initial encounter; Y92.009 Unspecified place in unspecified non-institutional (private) residence as the place of occurrence of the external cause; Y93.01 Activity, walking, marching and hiking
CPT/HCPCS: 73130; 72125; 70450; 90715; 99285; 90471; L0120

== ENCOUNTER 2018-11-06 06:39 | Inpatient (IN) | payer MEDICARE, BC ==
[2018-11-06] MEDS ORDERED: SODIUM CHLORIDE 0.9% 1,000 ML IV STA (07:21)
--- NOTE | 2018-11-06 07:29 | ED ---
General Adult HPI - General Chief complaint: Weakness Stated complaint: SOB, Weakness Time Seen by Provider: 11/06/18 06:45 Source: patient, family, EMS, RN notes reviewed Mode of arrival: EMS Limitations: no limitations - History of Present Illness Initial comments: This a 78-year-old male who has Parkinson's disease his gives the history. states lately he has been falling more is been occurring over a couple months but lately has fallen 2 more times in the last week the last time being 4 days ago. states he hurt his arm and it's all bruised her but he is able to use it. states he brings him in today because he is even weaker today and she cannot take care of him in the evenings get him to stand up long enough to change him. states he also seems more lethargic than normal and slower to respond. states he didn't fracture his skull about a month and a half ago. states she's also had some congestion and runny nose lately. denies any difficulty breathing shortness of breath is been no fever chills is been no abdominal pain there's been no chest pain there's been no headache according to the . - Related Data Home Medications Medication Instructions Recorded Confirmed Bisoprol/Hydrochlorothiazide [Ziac 1 tab PO DAILY 03/29/14 11/06/18 10-6.25 MG] Fenofibrate 160 mg PO DAILY 03/29/14 11/06/18 Pantoprazole Sodium 40 mg PO DAILY 03/29/14 11/06/18 Carbidopa/Levodopa [Sinemet CR 1 tab PO TID-W/MEALS 04/19/17 11/06/18 50-200 mg] rOPINIRole HCL [Requip Xl] 4 mg PO DAILY 04/19/17 11/06/18 Sertraline [Zoloft] 50 mg PO DAILY 07/11/18 11/06/18 ALPRAZolam [Xanax] 0.5 mg PO DAILY PRN 09/15/18 11/06/18 Allergies Allergy/AdvReac Type Severity Reaction Status Date / Time diltiazem HCl [From Cardizem] Allergy Mild Rash/Hives Verified 11/06/18 07:04 Beta-Blockers Allergy Rash/Hives Verified 11/06/18 07:04 (Beta-Adrenergic Bloc Review of Systems ROS Statement: Those systems with pertinent positive or pertinent negative responses have been documented in the HPI. ROS Other: All systems not noted in ROS Statement are negative. Past Medical History Past Medical History: GERD/Reflux, Hypertension Additional Past Medical History / Comment(s): Parkinson's disease History of Any Multi-Drug Resistant Organisms: None Reported Past Surgical History: Back Surgery, Cholecystectomy, Orthopedic Surgery Additional Past Surgical History / Comment(s): right knee Past Psychological History: No Psychological Hx Reported Smoking Status: Former smoker Past Alcohol Use History: None Reported Past Drug Use History: None Reported General Exam - General Exam Comments Initial Comments: GENERAL: Patient is well-developed and well-nourished. Patient is nontoxic and well- hydrated and is in no acute distress. ENT: Neck is soft and supple. No significant lymphadenopathy is noted. Oropharynx is clear. Moist mucous membranes. Neck has full range of motion without eliciting any pain. EYES: The sclera were anicteric and conjunctiva were pink and moist. Extraocular movements were intact and pupils were equal round and reactive to light. Eyelids were unremarkable. PULMONARY: Unlabored respirations. Good breath sounds bilaterally. No audible rales rhonchi or wheezing was noted. CARDIOVASCULAR: There is a regular rate and rhythm without any murmurs gallops or rubs. ABDOMEN: Soft and nontender with normal bowel sounds. SKIN: Skin is clear with no lesions or rashes and otherwise unremarkable. NEUROLOGIC: Patient is alert and oriented unable to assess but he does follow all commands. Cranial nerves II through XII are grossly intact. Motor and sensory are also intact. Normal speech, volume and content. Symmetrical smile. MUSCULOSKELETAL: Normal extremities with adequate strength and full range of motion. LYMPHATICS: No significant lymphadenopathy is noted PSYCHIATRIC: Normal psychiatric evaluation. Limitations: no limitations Course Vital Signs 11/06/18 11/06/18 06:43 09:43 Temperature 98.7 F Pulse Rate 64 90 Respiratory 19 16 Rate Blood Pressure 155/74 141/64 O2 Sat by Pulse 94 L 96 Oximetry Medical Decision Making - Medical Decision Making EKG shows normal sinus rhythm at 60 bpm KS interval is 204 QRS is 96 Q-T intervals 464 QTC is 464. Patient's EKG shows no ST segment elevation or depression or T wave abnormalities are noted. CT of the brain shows no acute abnormality. Patient was too weak to stand at the bedside sows determined the patient needed to be brought into the hospital for possible rehabilitation. states she could not possibly taken home and take care of him. I spoke with Dr. Rob he agreed to admit the patient admitted the patient I wrote admitting orders. - Lab Data Result diagrams: 11/06/18 06:46 11/06/18 06:46 Lab Results 11/06/18 11/06/18 11/06/18 Range/Units 06:46 06:46 06:46 WBC 7.8 (3.8-10.6) k/uL RBC 4.83 (4.30-5.90) m/uL Hgb 13.5 (13.0-17.5) gm/dL Hct 42.2 (39.0-53.0) % MCV 87.3 (80.0-100.0) fL MCH 28.0 (25.0-35.0) pg MCHC 32.0 (31.0-37.0) g/dL RDW 16.4 H (11.5-15.5) % Plt Count 299 (150-450) k/uL Neutrophils % 88 % Lymphocytes % 6 % Monocytes % 4 % Eosinophils % 1 % Basophils % 0 % Neutrophils # 6.8 (1.3-7.7) k/uL Lymphocytes # 0.5 L (1.0-4.8) k/uL Monocytes # 0.3 (0-1.0) k/uL Eosinophils # 0.1 (0-0.7) k/uL Basophils # 0.0 (0-0.2) k/uL Anisocytosis Slight PT 10.5 (9.0-12.0) sec INR 1.0 (<1.2) APTT 26.7 (22.0-30.0) sec Sodium 139 (137-145) mmol/L Potassium 3.8 (3.5-5.1) mmol/L Chloride 107 (98-107) mmol/L Carbon Dioxide 18 L (22-30) mmol/L Anion Gap 14 mmol/L BUN 26 H (9-20) mg/dL Creatinine 1.18 (0.66-1.25) mg/dL Est GFR (CKD-EPI)AfAm 68 (>60 ml/min/1.73 sqM) Est GFR (CKD-EPI)NonAf 59 (>60 ml/min/1.73 sqM) Glucose 170 H (74-99) mg/dL Plasma Lactic Acid Wing (0.7-2.0) mmol/L Calcium 8.9 (8.4-10.2) mg/dL Total Bilirubin 0.8 (0.2-1.3) mg/dL AST 21 (17-59) U/L ALT 24 (21-72) U/L Alkaline Phosphatase 40 (38-126) U/L Troponin I (0.000-0.034) ng/mL Total Protein 7.2 (6.3-8.2) g/dL Albumin 4.5 (3.5-5.0) g/dL Urine Color Urine Appearance (Clear) Urine pH (5.0-8.0) Ur Specific [place] (1.001-1.035) Urine Protein (Negative) Urine Glucose (UA) (Negative) Urine Ketones (Negative) Urine Blood (Negative) Urine Nitrite (Negative) Urine Bilirubin (Negative) Urine Urobilinogen (<2.0) mg/dL Ur Leukocyte Esterase (Negative) 11/06/18 11/06/18 11/06/18 Range/Units 06:46 08:00 08:15 WBC (3.8-10.6) k/uL RBC (4.30-5.90) m/uL Hgb (13.0-17.5) gm/dL Hct (39.0-53.0) % MCV (80.0-100.0) fL MCH (25.0-35.0) pg MCHC (31.0-37.0) g/dL RDW (11.5-15.5) % Plt Count (150-450) k/uL Neutrophils % % Lymphocytes % % Monocytes % % Eosinophils % % Basophils % % Neutrophils # (1.3-7.7) k/uL Lymphocytes # (1.0-4.8) k/uL Monocytes # (0-1.0) k/uL Eosinophils # (0-0.7) k/uL Basophils # (0-0.2) k/uL Anisocytosis PT (9.0-12.0) sec INR (<1.2) APTT (22.0-30.0) sec Sodium (137-145) mmol/L Potassium (3.5-5.1) mmol/L Chloride (98-107) mmol/L Carbon Dioxide (22-30) mmol/L Anion Gap mmol/L BUN (9-20) mg/dL Creatinine (0.66-1.25) mg/dL Est GFR (CKD-EPI)AfAm (>60 ml/min/1.73 sqM) Est GFR (CKD-EPI)NonAf (>60 ml/min/1.73 sqM) Glucose (74-99) mg/dL Plasma Lactic Acid Wing 1.8 (0.7-2.0) mmol/L Calcium (8.4-10.2) mg/dL Total Bilirubin (0.2-1.3) mg/dL AST (17-59) U/L ALT (21-72) U/L Alkaline Phosphatase (38-126) U/L Troponin I <0.012 (0.000-0.034) ng/mL Total Protein (6.3-8.2) g/dL Albumin (3.5-5.0) g/dL Urine Color Yellow Urine Appearance Clear (Clear) Urine pH 5.5 (5.0-8.0) Ur Specific [place] 1.034 (1.001-1.035) Urine Protein Trace H (Negative) Urine Glucose (UA) Negative (Negative) Urine Ketones Trace H (Negative) Urine Blood Negative (Negative) Urine Nitrite Negative (Negative) Urine Bilirubin Negative (Negative) Urine Urobilinogen <2.0 (<2.0) mg/dL Ur Leukocyte Esterase Negative (Negative) Disposition Clinical Impression: Generalized weakness Disposition: ADMITTED IP TO THIS [facility] Referrals: Preston Prado DO [Primary Care Provider] - 1-2 days Time of Disposition: 09:47
[2018-11-06 07:32] LABS: Anisocytosis Slight; Basophils % (A) 0 %; Eosinophils # (A) 0.1 k/uL (0-0.7); Eosinophils % (A) 1 %; HCT 42.2 % (39.0-53.0); HGB 13.5 gm/dL (13.0-17.5); Lymphocytes # (A) 0.5 k/uL (1.0-4.8); Lymphocytes % (A) 6 %; MCV 87.3 fL (80.0-100.0); Mean Platelet Volume 6.9; Monocytes # (A) 0.3 k/uL (0-1.0); Monocytes % (A) 4 %; Neutrophils # (A) 6.8 k/uL (1.3-7.7); Neutrophils % (A) 88 %; Platelet Count 299 k/uL (150-450); RBC 4.83 m/uL (4.30-5.90); RDW 16.4 % (11.5-15.5); WBC 7.8 k/uL (3.8-10.6)
[2018-11-06 07:41] LABS: Albumin 4.5 g/dL (3.5-5.0); Calcium 8.9 mg/dL (8.4-10.2); Potassium 3.8 mmol/L (3.5-5.1); Total Bilirubin 0.8 mg/dL (0.2-1.3); Total Protein 7.2 g/dL (6.3-8.2)
[2018-11-06 07:42] LABS: Partial Thromboplastin Time 26.7 sec (22.0-30.0); Prothrombin Time 10.5 sec (9.0-12.0)
--- NOTE | 2018-11-06 08:02 | CT ---
EXAMINATION TYPE: CT brain wo con DATE OF EXAM: 11/06/2018 COMPARISON: 09/15/2018 HISTORY: Weakness CT DLP: 1071.4 mGycm Automated exposure control for dose reduction was used. FINDINGS: There is no acute intracranial hemorrhage or midline shift. There is ventricular and sulcal prominenc e compatible with age-related volume loss. Prominent perivascular spaces seen at the level of the inf erior basal ganglia. There are few patchy foci of hypoattenuation in the subcortical white matter mos t commonly related to sequela of microangiopathy. No suspicious extra-axial fluid collection is seen. There is a nonunited fracture deformity of the right frontal sinus although overlying soft tissue sw elling seen on the prior has resolved. Paranasal sinus opacification has also nearly resolved with on ly scant mucosal thickening in the ethmoid sinuses remaining. Mastoid air cells are well aerated. IMPRESSION: 1. NO ACUTE INTRACRANIAL PROCESS. 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 2. NONUNITED OLD FRACTURE DEFORMITY OF THE RIGHT FRONTAL SINUS DEMONSTRATED ON THE EXAM OF 09/16/19 19.
[2018-11-06 08:44] LABS: Appearance,Urine Clear (Clear); Bilirubin,Urine Negative (Negative); Blood,Urine Negative (Negative); Color,Urine Yellow; Glucose,Urine (UA) Negative (Negative); Ketones,Urine Trace (Negative); Leukocyte Esterase,Urine Negative (Negative); Nitrite,Urine Negative (Negative); PH, Urine 5.5 (5.0-8.0); Protein,Urine Trace (Negative); Specific Gravity,Urine 1.034 (1.001-1.035); Urobilinogen,Urine <2.0 mg/dL (<2.0)
--- NOTE | 2018-11-06 08:44 | XR ---
EXAMINATION TYPE: XR chest 2V DATE OF EXAM: 11/06/2018 COMPARISON: 04/29/2018 HISTORY: Weakness, multiple falls. TECHNIQUE: Frontal and lateral views of the chest are obtained. FINDINGS: There is enlarged cardiac mediastinal silhouette. [id number] degenerative changes of the spine are noted. Minimal left basilar platelike atelectasis is seen. No focal consolidation, ple ural effusion or pneumothorax. Questionable pulmonary nodule at the right lung base on the lateral vi ew only. IMPRESSION: 1. Minimal left basilar subsegmental atelectasis otherwise no acute cardiopulmonary process. 2. Questionable pulmonary nodule at the right lung base near the costophrenic angle on the lateral vi ew only, new from the prior. Nonemergent CT thorax is recommended for further correlation.
[2018-11-06] MEDS ORDERED: SODIUM CHLORIDE 0.9% 1,000 ML IV ONE (09:47)
[2018-11-06] MEDS ORDERED: ALPRAZolam 0.5 MG TAB PO PRN (13:52)
[2018-11-06] MEDS ORDERED: ACETAMINOPHEN TAB 500 MG TAB PO PRN (13:53)
[2018-11-06] MEDS: FENOFIBRATE 160 MG TAB PO SCH (16:25)
[2018-11-06] MEDS: CARBIDOPA-LEVODOPA ER 50-200MG 1 EACH TABLET.ER PO SCH ×2 (16:25→17:19)
[2018-11-06] MEDS: PANTOPRAZOLE 40 MG TABLET PO SCH (16:25)
[2018-11-06] MEDS: BISOPROLOL-HCTZ 10-6.25 MG 1 EACH TAB PO SCH (16:25)
[2018-11-06] MEDS: SERTRALINE 50 MG TAB PO SCH (16:26)
--- NOTE | 2018-11-06 17:16 | HP ---
HISTORY AND PHYSICAL DATE OF SERVICE: November 06, 2018. CHIEF COMPLAINT: Weakness. HISTORY OF PRESENT ILLNESS: This 78-year-old gentleman with a past medical history of multiple medical problems including asthma, GERD, hypertension, history of remote history of Parkinson's disease, back surgery, cholecystectomy, anxiety, depression being followed by Dr. Prado in the outpatient setting was living with his . The family noted that the patient had some change in mental status as well as difficulty in walking, increased falling and because of increasing difficulties the patient taken to [facility] and was admitted for further evaluation and treatment. The patient is unable to give a coherent history. Most of the history taken from my discussion with staff and review of chart at this time. The PT/OT evaluation is in progress. PAST MEDICAL HISTORY: Asthma, GERD, hypertension, history of DJD, history of Parkinson's, history of pneumonia, history of back status, history of anxiety and depression. MEDICATIONS: Prior to admission include home medications are: 1. Requip 4 mg p.o. daily. 2. Zoloft 50 mg p.o. daily. 3. Protonix 40 mg p.o. daily. 4. Fenofibrate 160 mg p.o. daily. 5. Sinemet CR 50/200 one p.o. with meals. 6. Ziac mg p.o. daily. 7. Xanax 0.5 daily p.r.n. ALLERGIES: CARDIZEM, BETA BLOCKERS. FAMILY HISTORY: History of cancer. SOCIAL HISTORY: History of occasional alcohol intake, previous history of smoking. REVIEW OF SYSTEMS: Could not be taken because of the patient's Parkinson's and difficulty in communication. PHYSICAL EXAMINATION: GENERAL: The patient is alert. VITAL SIGNS: Pulse rate 71. Blood pressure 152/92, respirations 19, temperature 97.6, pulse ox 94% on 2 L. HEENT is conjunctivae normal. Oral mucosa moist. NECK: No jugular venous distention. No carotid bruit. No lymph node enlargement. CARDIOVASCULAR: S1, S2 muffled. RESPIRATIONS: Breath sounds diminished in the bases. A few scattered rhonchi and crackles. ABDOMEN: Soft, nontender. No mass palpable. LEGS: No edema. No swelling. NERVOUS SYSTEM: Higher functions as mentioned earlier. Moves all 4 limbs. Mild diffuse weakness. Increased tones and tremors present suggestive of Parkinson's. SKIN: No ulcers. No rashes. No bleeding. JOINTS: No active deforming arthropathy. LAB STUDIES: WBC 7.2, hemoglobin 13.5, sodium 130, potassium 3.8, glucose 170. ASSESSMENT: 1. Gait dysfunction secondary to Parkinson's. 2. Change in mental status acute on chronic metabolic encephalopathy, multifactorial. 3. History of asthma. 4. Gastroesophageal reflux disease. 5. Hypertension. 6. History of degenerative joint disease. 7. History of pneumonia. 8. History of back surgery, degenerative joint disease. 9. Anxiety, depression. 10.Bibasilar subsegmental atelectasis and possible pulmonary nodule in the right lung base. RECOMMENDATIONS AND DISCUSSION: In this 78-year-old gentleman who presented with multiple complex medical issues, we will monitor the patient closely. Continue the current medications, management and symptomatic treatment. Otherwise, I would recommend PT/OT evaluation. A basic evaluation including chest x-ray, brain CT did not show any acute abnormality except minimal bibasilar subsegmental atelectasis pulmonary nodule in the right lung. The EKG showed nonspecific changes. The CT scan of the brain showed no acute process. Age-related changes are noted. Nonunited old fracture deformity of the right frontal sinus was also noted. We will continue to monitor. Prognosis guarded. Further recommendations to follow. See orders for details. MMODL / IJN: [id number] / MTDD
[2018-11-06] MEDS: HEPARIN SODIUM,PORCINE 5,000 UNIT/ML 1 ML VIAL SQ SCH ×2 (17:20→21:08)
[2018-11-07] MEDS: SERTRALINE 50 MG TAB PO SCH (08:11)
[2018-11-07] MEDS: THIAMINE 100 MG TAB PO SCH (08:11)
[2018-11-07] MEDS: HEPARIN SODIUM,PORCINE 5,000 UNIT/ML 1 ML VIAL SQ SCH ×2 (08:11→21:09)
[2018-11-07] MEDS: BISOPROLOL-HCTZ 10-6.25 MG 1 EACH TAB PO SCH (08:11)
[2018-11-07] MEDS: FOLIC ACID 1 MG TAB PO SCH (08:11)
[2018-11-07] MEDS: PANTOPRAZOLE 40 MG TABLET PO SCH (08:11)
[2018-11-07] MEDS: CARBIDOPA-LEVODOPA ER 50-200MG 1 EACH TABLET.ER PO SCH ×3 (08:11→16:50)
[2018-11-07] MEDS: FENOFIBRATE 160 MG TAB PO SCH (08:12)
[2018-11-07] MEDS: MULTIVITAMINS, THERA 1 EACH TAB PO SCH (08:12)
[2018-11-07 10:27] LABS: Anisocytosis Slight; Basophils % (A) 0 %; Calcium 8.5 mg/dL (8.4-10.2); Eosinophils # (A) 0.1 k/uL (0-0.7); Eosinophils % (A) 1 %; HCT 37.1 % (39.0-53.0); HGB 11.8 gm/dL (13.0-17.5); Lymphocytes # (A) 0.7 k/uL (1.0-4.8); Lymphocytes % (A) 10 %; MCH 27.5 pg (25.0-35.0); MCHC 31.8 g/dL (31.0-37.0); MCV 86.5 fL (80.0-100.0); Mean Platelet Volume 7.3; Monocytes # (A) 0.3 k/uL (0-1.0); Monocytes % (A) 4 %; Neutrophils # (A) 5.6 k/uL (1.3-7.7); Neutrophils % (A) 82 %; Platelet Count 282 k/uL (150-450); Potassium 3.5 mmol/L (3.5-5.1); RBC 4.29 m/uL (4.30-5.90); RDW 16.6 % (11.5-15.5); WBC 6.9 k/uL (3.8-10.6)
[2018-11-08 06:11] LABS: Anisocytosis Slight; Basophils % (A) 1 %; Eosinophils # (A) 0.2 k/uL (0-0.7); Eosinophils % (A) 3 %; HGB 11.8 gm/dL (13.0-17.5); Lymphocytes # (A) 0.8 k/uL (1.0-4.8); Lymphocytes % (A) 13 %; MCH 28.3 pg (25.0-35.0); MCHC 32.9 g/dL (31.0-37.0); MCV 85.9 fL (80.0-100.0); Mean Platelet Volume 7.1; Monocytes # (A) 0.3 k/uL (0-1.0); Monocytes % (A) 5 %; Neutrophils # (A) 4.6 k/uL (1.3-7.7); Neutrophils % (A) 77 %; Platelet Count 262 k/uL (150-450); RBC 4.19 m/uL (4.30-5.90); RDW 16.5 % (11.5-15.5)
[2018-11-08 06:24] LABS: Calcium 8.7 mg/dL (8.4-10.2); Potassium 3.6 mmol/L (3.5-5.1)
[2018-11-08] MEDS: SERTRALINE 50 MG TAB PO SCH (07:16)
[2018-11-08] MEDS: CARBIDOPA-LEVODOPA ER 50-200MG 1 EACH TABLET.ER PO SCH ×3 (07:16→15:14)
[2018-11-08] MEDS: FOLIC ACID 1 MG TAB PO SCH (07:16)
[2018-11-08] MEDS: BISOPROLOL-HCTZ 10-6.25 MG 1 EACH TAB PO SCH (07:16)
[2018-11-08] MEDS: PANTOPRAZOLE 40 MG TABLET PO SCH (07:16)
[2018-11-08] MEDS: HEPARIN SODIUM,PORCINE 5,000 UNIT/ML 1 ML VIAL SQ SCH ×2 (07:16→20:28)
[2018-11-08] MEDS: FENOFIBRATE 160 MG TAB PO SCH (07:16)
[2018-11-08] MEDS: THIAMINE 100 MG TAB PO SCH (07:17)
[2018-11-08] MEDS: MULTIVITAMINS, THERA 1 EACH TAB PO SCH (07:17)
--- NOTE | 2018-11-08 11:14 | P.PN ---
Subjective Progress Note Date: 11/07/18 78-year-old male who has Parkinson's disease his gives the history. states lately he has been falling more is been occurring over a couple months but lately has fallen 2 more times in the last week the last time being 4 days ago. states he hurt his arm and it's all bruised her but he is able to use it. states he brings him in today because he is even weaker today and she cannot take care of him in the evenings get him to stand up long enough to change him. states he also seems more lethargic than normal and slower to respond. states he didn't fracture his skull about a month and a half ago. states she's also had some congestion and runny nose lately. denies any difficulty breathing shortness of breath is been no fever chills is been no abdominal pain there's been no chest pain there's been no headache according to the . 11/07/18 Objective - Vital Signs Vital signs: Vital Signs Temp 97.9 F 11/07/18 07:00 Pulse 80 11/07/18 07:00 Resp 15 11/07/18 07:00 BP 132/70 11/07/18 07:00 Pulse Ox 95 11/07/18 07:00 Intake & Output 11/06/18 11/07/18 11/07/18 18:59 06:59 18:59 Output Total 1 Balance -1 Output: Stool 1 Other: # Voids 2 1 # Bowel Movements 3 - Exam GENERAL: Patient is well-developed and well-nourished. Patient is nontoxic and well-hydrated and is in no acute distress. ENT: Neck is soft and supple. No significant lymphadenopathy is noted. Oropharynx is clear. Moist mucous membranes. Neck has full range of motion without eliciting any pain. EYES: The sclera were anicteric and conjunctiva were pink and moist. Extraocular movements were intact and pupils were equal round and reactive to light. PULMONARY: Unlabored respirations. Good breath sounds bilaterally. No audible rales rhonchi or wheezing was noted. CARDIOVASCULAR: There is a regular rate and rhythm without any murmurs gallops or rubs. ABDOMEN: Soft and nontender with normal bowel sounds. SKIN: Skin is clear with no lesions or rashes and otherwise unremarkable. NEUROLOGIC: Patient is alert and oriented unable to assess but he does follow all commands. Cranial nerves II through XII are grossly intact. Motor and sensory are also intact. Normal speech, volume and content. Symmetrical smile. MUSCULOSKELETAL: Normal extremities with adequate strength and full range of motion. - Labs CBC & Chem 7: 11/08/18 05:51 11/08/18 05:51 Labs: Abnormal Lab Results - Last 24 Hours (Table) 11/07/18 11/07/18 Range/Units 09:44 09:44 RBC 4.29 L (4.30-5.90) m/uL Hgb 11.8 L (13.0-17.5) gm/dL Hct 37.1 L (39.0-53.0) % RDW 16.6 H (11.5-15.5) % Lymphocytes # 0.7 L (1.0-4.8) k/uL Chloride 108 H (98-107) mmol/L BUN 22 H (9-20) mg/dL Glucose 154 H (74-99) mg/dL Assessment and Plan Assessment: 1. Altered mental status; metabolic encephalopathy/ multifactorial; possible progression of Parkinson's disease - Workup in ED including CT of the brain was unremarkable except for non-united old fracture deformity of the right frontal sinus - Patient was given IV fluid resuscitation in ED; we will continue to monitor closely for any signs of dehydration - [place] [id number] by mouth 3 times a day 2. Generalized debility/ adult failure to thrive versus progressive Parkinson's disease - Consult PT/OT for discharge planning 3. Asthma; not in exacerbation 4. Hypertension; stable on Bioprolol-hydrochlorothiazide 106.25 mg daily 5. Gastroesophageal reflux disease; stable on Protonix 40 mg daily 6. Possible pulmonary nodule; right lung base 7. Anxiety/depression - Continue with home dose of Zoloft 50 mg daily along with Xanax 0.5 mg by mouth daily when necessary 8. DVT prophylaxis; subcu heparin CODE STATUS; full code Time with Patient: Greater than 30
[2018-11-08 22:35] VITALS: RESP 20
[2018-11-09 06:21] VITALS: BP 159/82; PULSE 60; TEMP 97.6
[2018-11-09 08:32] LABS: Anisocytosis Slight; Basophils % (A) 1 %; Eosinophils # (A) 0.2 k/uL (0-0.7); Eosinophils % (A) 3 %; HCT 36.8 % (39.0-53.0); HGB 12.2 gm/dL (13.0-17.5); Lymphocytes # (A) 1.1 k/uL (1.0-4.8); Lymphocytes % (A) 21 %; MCHC 33.1 g/dL (31.0-37.0); MCV 84.7 fL (80.0-100.0); Mean Platelet Volume 7.1; Monocytes # (A) 0.2 k/uL (0-1.0); Monocytes % (A) 4 %; Neutrophils # (A) 3.6 k/uL (1.3-7.7); Neutrophils % (A) 69 %; Platelet Count 285 k/uL (150-450); RBC 4.34 m/uL (4.30-5.90); RDW 16.3 % (11.5-15.5); WBC 5.1 k/uL (3.8-10.6)
[2018-11-09] MEDS: HEPARIN SODIUM,PORCINE 5,000 UNIT/ML 1 ML VIAL SQ SCH (08:32)
[2018-11-09] MEDS: FOLIC ACID 1 MG TAB PO SCH (08:32)
[2018-11-09] MEDS: FENOFIBRATE 160 MG TAB PO SCH (08:32)
[2018-11-09] MEDS: THIAMINE 100 MG TAB PO SCH (08:32)
[2018-11-09] MEDS: MULTIVITAMINS, THERA 1 EACH TAB PO SCH (08:32)
[2018-11-09] MEDS: PANTOPRAZOLE 40 MG TABLET PO SCH (08:33)
[2018-11-09] MEDS: BISOPROLOL-HCTZ 10-6.25 MG 1 EACH TAB PO SCH (08:33)
[2018-11-09] MEDS: CARBIDOPA-LEVODOPA ER 50-200MG 1 EACH TABLET.ER PO SCH ×2 (08:33→11:52)
[2018-11-09] MEDS: SERTRALINE 50 MG TAB PO SCH (08:33)
[2018-11-09 08:43] LABS: Anion Gap 7 mmol/L; Blood Urea Nitrogen 16 mg/dL (9-20); Carbon Dioxide 26 mmol/L (22-30); Chloride 103 mmol/L (98-107); Glucose 127 mg/dL (74-99); Potassium 3.9 mmol/L (3.5-5.1); Sodium 136 mmol/L (137-145)
--- NOTE | 2018-11-09 21:26 | PN ---
PROGRESS NOTE DATE OF SERVICE: 11/08/18 PRESENTING COMPLAINT: Tired. INTERVAL HISTORY: This patient is seen by me yesterday. Presented with some confusion, weakness that was felt to be some flare up of Parkinson disease. The patient is feeling a bit better today. Did stand up. at the bedside. Appetite has started to turn around. REVIEW OF SYSTEMS: Done for constitutional, cardiovascular, GI, pulmonary, musculoskeletal; relevant findings as above. CURRENT MEDICATIONS: Reviewed. PHYSICAL EXAMINATION: VITAL SIGNS: Temperature 97.8, pulse 64, respiration 20, blood pressure 121/62, pulse 93 percent on room air. GENERAL APPEARANCE: Sitting up in a chair, awake. EYES: Pupils equal. Conjunctivae normal. NECK: JVD not raised. Mass not palpable. RESPIRATORY: Effort normal. LUNGS: Fair air entry. CARDIOVASCULAR: 1st and 2nd sounds, no edema. ABDOMEN: Soft, nontender. Liver and spleen not palpable. PSYCHIATRY: Able to answer questions. NEUROLOGICAL: Speech is slightly slow and movements are a bit slow. INVESTIGATIONS: White count 6, hemoglobin 11.8, potassium 3.6, BUN 19, creatinine 0.97. ASSESSMENT: 1. Possible acute exacerbation of Parkinson disease, idiopathic. 2. Medical debility. 3. Intermittent asthma. 4. Gastroesophageal reflux disease. 5. Essential hypertension. 6. Primary osteoarthritis. 7. Gait dysfunction, uses a walker. 8. Diverticulosis. PLAN: To continue current medications and treatment plan. Plan discussed care with . Encouraged the patient to walk a bit today. Hopefully patient can be discharged by tomorrow. MMODL / IJN: [id number] /
--- NOTE | 2018-11-09 21:50 | DS ---
DISCHARGE SUMMARY DATE OF ADMISSION: November 06, 2018. DATE OF DISCHARGE: November 09, 2018. FINAL DIAGNOSES: 1. Acute exacerbation of Parkinson disease, idiopathic type. 2. 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 3. Intermittent asthma. 4. Essential hypertension. 5. Gastroesophageal reflux disease. 6. Anxiety and depression not otherwise specified. 7. Normocytic anemia, cause undetermined. HOSPITAL COURSE: This patient presented after increasing falls, felt to have Parkinson's exacerbation with some element of dehydration, was given IV fluids. The patient doing much better by the time of discharge. Patient is very keen to go home. PHYSICAL EXAMINATION: VITAL SIGNS: Temperature afebrile, blood pressure 159/82, pulse ox 97% on room air. LUNGS: Clear. Movements still slightly slow but much improved. DISCHARGE MEDICATIONS: 1. Ziac 10/6.25 1 tab p.o. daily. 2. Fenofibrate 160 mg p.o. daily. 3. Protonix 40 mg p.o. daily. 4. Sinemet CR 50/200 one tablet p.o. t.i.d. 5. Requip XL 4 mg p.o. daily. 6. Zoloft 50 mg p.o. daily. 7. Xanax 0.5 p.o. daily p.r.n. FOLLOWUP: Follow up with Dr. Prado in 3 days. Fall prevention to continue. Copy to Dr. Prado. EDGARD / DERRICK: [id number] /
== END 2018-11-09 12:51 | disposition home health service (06) | DRG 56 ==
LOC: EC 06:39 → 3NMEDONC 09:47 → 4MS4W 10:26 → OBSVTOIN 15:26
PROVIDERS: ADMIT Hospitalist; ATTEND Hospitalist
DX: G20 Parkinson's disease (principal); G93.41 Metabolic encephalopathy; J98.11 Atelectasis; D64.9 Anemia, unspecified; F32.9 Major depressive disorder, single episode, unspecified; F41.9 Anxiety disorder, unspecified; I10 Essential (primary) hypertension; J45.20 Mild intermittent asthma, uncomplicated; K21.9 Gastro-esophageal reflux disease without esophagitis; K57.90 Diverticulosis of intestine, part unspecified, without perforation or abscess without bleeding; M19.90 Unspecified osteoarthritis, unspecified site; Z79.899 Other long term (current) drug therapy; Z87.01 Personal history of pneumonia (recurrent); Z87.891 Personal history of nicotine dependence; R91.1 Solitary pulmonary nodule; Z90.49 Acquired absence of other specified parts of digestive tract; R26.9 Unspecified abnormalities of gait and mobility
CPT/HCPCS: 36415; 70450; 71046; 80048; 80053; 81003; 83605; 84484; 85025; 85610; 85730; 87324; 87502; 93005; 96360; 96361; 99285

== ENCOUNTER → 2018-12-02 | Outpatient (CLI) | payer MEDICARE, BC ==
--- NOTE | 2018-12-02 21:13 | CT ---
EXAMINATION TYPE: CT chest wo con DATE OF EXAM: 12/02/2018 COMPARISON: None HISTORY: pulmonary nodules CT DLP: 768 mGycm, Automated exposure control for dose reduction was used. CONTRAST: Performed injected with 0 mL of Isovue 300. TECHNIQUE: Axial images were obtained at 5 mm thick sections. Reconstructed images are reviewed on [employer] computer in the coronal plane. FINDINGS: Portion of the thyroid visualized is normal. No suspicious lung nodules or focal infiltrates are present. No pulmonary nodularity is identified at this time. No enlarged mediastinal or hilar adenopathy is evident. The ascending aorta diameter at the level o f the main pulmonary artery is 3.5 cm. The main pulmonary artery diameter at the bifurcation is 2.4 cm. Moderate coronary artery calcification is present. Limited CT sections are obtained through the upper abdomen. There may be a small cyst in the superior right lobe liver. This could be confirmed as simple with ultrasound. IMPRESSIONS: 1. No acute pulmonary process. 2. Suspected cyst within the liver could be confirmed with ultrasound.
== END | disposition home or self-care (01) ==
LOC: RADCTMAIN 16:39
PROVIDERS: ATTEND Family Medicine
DX: R91.1 Solitary pulmonary nodule (principal)
CPT/HCPCS: 71250

== ENCOUNTER → 2019-01-02 | Outpatient (CLI) | payer MEDICARE, BC ==
--- NOTE | 2019-01-02 12:34 | US ---
EXAMINATION TYPE: US liver DATE OF EXAM: 01/02/2019 COMPARISON: CT chest 12/02/2018 CLINICAL HISTORY: 78-year-old male K76.[address] scan showed liver cyst. GB removed x 1 0 years ago. TECHNIQUE: Multiple sonographic images of the right upper quadrant are obtained. FINDINGS: EXAM MEASUREMENTS: Liver Length: 14.8 cm CBD: 0.4 cm CHD: 0.4 cm Right Kidney: 11.7 x 5.2 x 6.0 cm Pancreas: Tail obscured by overlying bowel gas Liver: Appears mildly echogenic. There is a cyst centrally located measuring 1.0 x 1.0 x 0.9 cm Gallbladder: Surgically absent Evidence for sonographic Traore's sign: neg CBD: wnl CHD: wnl Right Kidney: No hydronephrosis IMPRESSION: 1. Slightly echogenic appearance to the liver suggesting underlying fatty infiltration. 2. Centrally located 1.0 cm benign hepatic cyst. 3. Status post cholecystectomy. No biliary ductal dilatation.
== END | disposition home or self-care (01) ==
LOC: RADUSWWP 09:01
PROVIDERS: ATTEND Family Medicine
DX: K76.89 Other specified diseases of liver (principal); Z90.49 Acquired absence of other specified parts of digestive tract
CPT/HCPCS: 76705

== ENCOUNTER 2019-01-03 05:46 | Emergency (ER) | payer MEDICARE, BC ==
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
[2019-01-03 06:09] LABS: Anisocytosis Slight; Basophils # (A) 0.1 k/uL (0-0.2); Basophils % (A) 1 %; Eosinophils # (A) 0.2 k/uL (0-0.7); Eosinophils % (A) 3 %; HCT 37.5 % (39.0-53.0); HGB 11.9 gm/dL (13.0-17.5); Lymphocytes # (A) 1.2 k/uL (1.0-4.8); Lymphocytes % (A) 14 %; MCH 27.4 pg (25.0-35.0); MCHC 31.8 g/dL (31.0-37.0); Mean Platelet Volume 6.9; Monocytes # (A) 0.4 k/uL (0-1.0); Monocytes % (A) 5 %; Neutrophils # (A) 6.2 k/uL (1.3-7.7); Neutrophils % (A) 76 %; Platelet Count 274 k/uL (150-450); RBC 4.36 m/uL (4.30-5.90); RDW 16.3 % (11.5-15.5); WBC 8.2 k/uL (3.8-10.6)
[2019-01-03 06:13] LABS: Glucose,Whole Blood 118 mg/dL (75-99)
[2019-01-03 06:19] LABS: ALT 15 U/L (21-72); AST 23 U/L (17-59); African American GFR (CKD) 67 (>60 ml/min/1.73 sqM); Albumin 4.2 g/dL (3.5-5.0); Alcohol <10 mg/dL; Alkaline Phosphatase 36 U/L (38-126); Amylase 68 U/L (30-110); Anion Gap 10 mmol/L; Blood Urea Nitrogen 24 mg/dL (9-20); Calcium 9.9 mg/dL (8.4-10.2); Carbon Dioxide 23 mmol/L (22-30); Chloride 105 mmol/L (98-107); Glucose 119 mg/dL (74-99); Lipase 88 U/L (23-300); Sodium 138 mmol/L (137-145); Total Bilirubin 0.4 mg/dL (0.2-1.3); Total Protein 6.7 g/dL (6.3-8.2)
[2019-01-03 06:21] LABS: Partial Thromboplastin Time 25.4 sec (22.0-30.0); Prothrombin Time 10.2 sec (9.0-12.0)
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
--- NOTE | 2019-01-03 06:25 | XR ---
EXAM: XR Pelvis, 1 or 2 Views CLINICAL HISTORY: ITS.REASON XR Reason: Trauma TECHNIQUE: Frontal view of the pelvis. COMPARISON: No relevant prior studies available. FINDINGS: Bones/joints: Mild degenerative changes. No acute fracture. No dislocation. Soft tissues: Unremarkable. Gastrointestinal tract: Partially visualized small bowel in left upper pelvis and mid abdomen are moderately dilated to 4 cm, suggest ileus versus obstruction. IMPRESSION: 1. Partially visualized small bowel in left upper pelvis and mid abdomen are moderately dilated to 4 cm, suggest ileus versus obstruction. 2. No fracture or dislocation.
--- NOTE | 2019-01-03 06:45 | CT ---
EXAM: CT Head Without Intravenous Contrast CLINICAL HISTORY: ITS.REASON CT Reason: trauma TECHNIQUE: Axial computed tomography images of the head/brain without intravenous contrast. CTDI is 45.2 mGy and DLP is 1113 mGy-cm. This CT exam was performed using one or more of the following dose reduction techniques: automated exposure control, adjustment of the mA and/or kV according to patient size, and/or use of iterative reconstruction technique. Coronal and sagittal reconstructions are performed COMPARISON: 11/06/18. FINDINGS: Brain: Unremarkable. No hemorrhage. No significant white matter disease. No edema. Ventricles: Unremarkable. No ventriculomegaly. Bones/joints: Comminuted fracture of outer table of right frontal sinus with 1 mm depression best seen on series 204 image 31. Soft tissues: Unremarkable. Sinuses: Unremarkable as visualized. No acute sinusitis. Mastoid air cells: Unremarkable as visualized. No mastoid effusion. Auditory system: Bilateral occlusive cerumen. Orbits: Bilateral cataract surgeries IMPRESSION: Comminuted fracture of outer table of right frontal sinus with 1 mm depression. No intracranial hemorrhage EXAM: CT Cervical Spine Without Intravenous Contrast CLINICAL HISTORY: ITS.REASON CT Reason: trauma TECHNIQUE: Axial computed tomography images of the cervical spine without intravenous contrast. CTDI is 14.4 mGy and DLP is 463.4 mGy-cm. This CT exam was performed using one or more of the following dose reduction techniques: automated exposure control, adjustment of the mA and/or kV according to patient size, and/or use of iterative reconstruction technique. Coronal and sagittal reconstructions are performed COMPARISON: No relevant prior studies available. FINDINGS: Vertebrae: 2 mm retrolisthesis of C3 on C4, likely related to moderate degenerative disc disease, worse in the lower cervical spine. No acute fracture. Discs/spinal canal/neural foramina: See above. Soft tissues: Unremarkable. IMPRESSION: No fracture or acute subluxation.
[2019-01-03 06:51] LABS: Creatine Kinase MB 4.8 ng/mL (0.0-2.4); Troponin I 0.013 ng/mL (0.000-0.034)
[2019-01-03 07:04] LABS: Appearance,Urine Clear (Clear); Bacteria,Urine Rare /hpf; Bilirubin,Urine Negative (Negative); Blood,Urine Trace (Negative); Color,Urine Yellow; Glucose,Urine (UA) Negative (Negative); Hyaline Casts,Urine 7 /lpf (0-2); Ketones,Urine Negative (Negative); Leukocyte Esterase,Urine Negative (Negative); Mucus,Urine Rare /hpf; Nitrite,Urine Negative (Negative); Protein,Urine Negative (Negative); RBC,Urine 1 /hpf (0-5); Specific Gravity,Urine 1.021 (1.001-1.035); Squamous Epithelial Cell,Urine 1 /hpf (0-4); Urobilinogen,Urine <2.0 mg/dL (<2.0); WBC,Urine 2 /hpf (0-5)
[2019-01-03 07:06] LABS: Amphetamine Screen,Urine Not Detected (NotDetected); Barbiturate Screen,Urine Not Detected (NotDetected); Benzodiazepines Screen,Urine Detected (NotDetected); Cocaine Screen,Urine Not Detected (NotDetected); Methadone Screen, Urine Not Detected (NotDetected); Opiate Screen,Urine Not Detected (NotDetected); Oxycodone Screen, Urine Not Detected (NotDetected); Phencyclidine Screen,Urine Not Detected (NotDetected); Tricyclic Antidepressant,Urine Not Detected (NotDetected); Urn Cannabinoid Scrn Not Detected (NotDetected)
[2019-01-03 07:28] VITALS: BP 134/75; PULSE 51; RESP 14; TEMP 97.9
--- NOTE | 2019-01-03 07:47 | CT ---
EXAMINATION TYPE: CT ChestAbdPelvis w con DATE OF EXAM: 01/03/2019 COMPARISON: Previous study dated 12/02/2018 HISTORY: Trauma CT DLP: 825.7 mGycm Automated exposure control for dose reduction was used. TECHNIQUE: Helical acquisition through the abdomen and pelvis was obtained without oral contrast but following the intravenous administration of 100 mL of Isovue 300. The data was formatted in the axia l, coronal and sagittal projections. FINDINGS: There is atelectatic change at the lung bases. There is no evidence of pneumothorax or pulm onary contusion. There is no significant axillary, mediastinal or hilar adenopathy. There is no pleural or pericardial fluid. The heart is not enlarged. Within the abdomen, the liver is low attenuating and may be fatty infiltrated. There is a 9 mm hypode nsity within the left lobe of the liver which may represent a small cyst. The gallbladder is been rem [place]. The spleen is normal. There is a small, sliding hiatal hernia. Both adrenal glands are normal. There is an exophytic, 2 cm lesion arising from the lower pole of the left kidney. It is high in dens ity be a simple cyst. The right kidney appears normal. There is no significant retroperitoneal, iliac or inguinal adenopathy. The bladder is not distended. There is no significant diverticular change and there is no radiographic evidence of diverticulitis. The appendix is not visualized with certainty. Small bowel loops are normal in caliber. There is no free fluid and no free air identified. There is degenerative change in the hips and spine. There is fusion of the SI joints. There is no acu te fracture of the pelvis, spine or ribs. IMPRESSION: 1. NO ACUTE POSTTRAUMATIC ABNORMALITY. 2. PROBABLE FATTY INFILTRATION OF THE LIVER. 3. PROBABLE CYST WITHIN THE LIVER. 4. NONSIMPLE CYST INVOLVING THE LEFT KIDNEY. 5. SMALL, SLIDING HIATAL HERNIA.
== END 2019-01-03 11:04 | disposition home or self-care (01) ==
LOC: EC 05:46
DX: S06.0X0A Concussion without loss of consciousness, initial encounter (principal); G20 Parkinson's disease; F03.90 Unspecified dementia, unspecified severity, without behavioral disturbance, psychotic disturbance, mood disturbance, and anxiety; I10 Essential (primary) hypertension; Z87.891 Personal history of nicotine dependence; Z79.899 Other long term (current) drug therapy; Z88.8 Allergy status to other drugs, medicaments and biological substances; Z53.29 Procedure and treatment not carried out because of patient's decision for other reasons; V86.59XA Driver of other special all-terrain or other off-road motor vehicle injured in nontraffic accident, initial encounter; Y92.410 Unspecified street and highway as the place of occurrence of the external cause
CPT/HCPCS: 36415; 86900; 86901; 80053; 82150; 82550; 82553; 83605; 83690; 84484; 85025; 85610; 85730; 86850; 81001; 80306; 72170; 71045; 72125; 70450; 71260; 74177; 99285; G0480; Q9967; 80320

== ENCOUNTER 2019-11-04 16:13 | Emergency (ER) | payer MEDICARE, BC ==
[2019-11-04 16:22] VITALS: TEMP 98.6
[2019-11-04] MEDS ORDERED: ONDANSETRON 4 MG/2 ML VIAL IVP STA (16:40)
[2019-11-04] MEDS ORDERED: FAMOTIDINE 20 MG/2 ML VIAL IV STA (16:40)
--- NOTE | 2019-11-04 16:40 | ED ---
General Adult HPI - General Chief complaint: ENT Stated complaint: Poss Choking Time Seen by Provider: 11/04/19 16:20 Source: patient, EMS, RN notes reviewed Mode of arrival: ambulatory Limitations: no limitations - History of Present Illness Initial comments: Patient is a pleasant 79-year-old male presenting to the emergency Department with complaints of choking episode. Patient admits to having a choking episode around 3 hours ago. Patient states he feels much better since then. Patient has been eating and drinking fine and that time. Patient does admit to having some mild upper abdominal discomfort, left upper abdomen. No nausea vomiting. patient diarrhea. No fever. No dyspnea. - Related Data Home Medications Medication Instructions Recorded Confirmed Bisoprol/Hydrochlorothiazide [Ziac 1 tab PO DAILY 03/29/14 01/03/19 10-6.25 MG] Fenofibrate 160 mg PO DAILY 03/29/14 01/03/19 Carbidopa/Levodopa [Sinemet CR 1 tab PO TID-W/MEALS 04/19/17 01/03/19 50-200 mg] rOPINIRole HCL [Requip Xl] 4 mg PO DAILY 04/19/17 01/03/19 Sertraline [Zoloft] 50 mg PO DAILY 07/11/18 01/03/19 ALPRAZolam [Xanax] 0.5 mg PO TID PRN 01/03/19 01/03/19 Carbidopa-Levodopa 25-100 mg 1 tab PO DAILY 01/03/19 01/03/19 [Sinemet 25-100] Allergies Allergy/AdvReac Type Severity Reaction Status Date / Time diltiazem HCl [From Cardizem] Allergy Mild Rash/Hives Verified 11/04/19 16:22 Beta-Blockers Allergy Rash/Hives Verified 11/04/19 16:22 (Beta-Adrenergic Bloc Review of Systems ROS Statement: Those systems with pertinent positive or pertinent negative responses have been documented in the HPI. ROS Other: All systems not noted in ROS Statement are negative. Constitutional: Denies: fever Eyes: Denies: eye pain ENT: Denies: ear pain Respiratory: Reports: as per HPI Cardiovascular: Denies: chest pain Endocrine: Denies: fatigue Gastrointestinal: Reports: as per HPI, abdominal pain Genitourinary: Denies: dysuria Musculoskeletal: Denies: back pain Skin: Denies: rash Neurological: Denies: weakness Past Medical History Past Medical History: Asthma, GERD/Reflux, Hypertension, Musculoskeletal Disorder, Neurologic Disorder, Pneumonia Additional Past Medical History / Comment(s): Parkinson's disease, difficulty swallowing at times, gait dysfunction, falls, chronic low back pain, hiatal hernia, divertiular dx. History of Any Multi-Drug Resistant Organisms: None Reported Past Surgical History: Back Surgery, Cholecystectomy, Orthopedic Surgery Additional Past Surgical History / Comment(s): right knee scope and partial replacement, EGDs, colonoscopies, laminectomy Past Anesthesia/Blood Transfusion Reactions: No Reported Reaction Past Psychological History: Anxiety, Depression Smoking Status: Former smoker - Past Family History Father Family Medical History: Cancer Additional Family Medical History / Comment(s): Father of colon cancer with mets to spine. He at the age of 51 yrs. Mother Family Medical History: No Reported History Additional Family Medical History / Comment(s): Mother was healthy. General Exam Limitations: no limitations General appearance: alert, in no apparent distress Head exam: Present: normocephalic Eye exam: Present: normal appearance ENT exam: Present: normal oropharynx Respiratory exam: Present: normal lung sounds bilaterally Cardiovascular Exam: Present: regular rate, normal rhythm Expanded Peripheral pulses: 2+: Radial (R), Radial (L), Dorsalis Pedis (R), Dorsalis Pedis (L) GI/Abdominal exam: Present: soft, tenderness (Minimal tenderness left upper abdomen), normal bowel sounds. Absent: distended, guarding, rebound, rigid, pulsatile mass Extremities exam: Absent: calf tenderness Neurological exam: Present: alert Psychiatric exam: Present: normal affect, normal mood Skin exam: Present: normal color Course Vital Signs 11/04/19 11/04/19 11/04/19 16:17 17:07 17:15 Temperature 98.6 F Pulse Rate 74 66 Respiratory 20 18 Rate Blood Pressure 180/85 136/87 O2 Sat by Pulse 97 96 98 Oximetry Medical Decision Making - Medical Decision Making Patient reevaluated and symptom-free. No dyspnea. Abdomen soft and nontender. Patient updated on results. Patient offered CT however refuses. Patient requesting discharge home. Patient is tolerating liquids without difficulty. - Lab Data Result diagrams: 11/04/19 16:48 11/04/19 16:48 Lab Results 11/04/19 11/04/19 Range/Units 16:48 16:48 WBC 5.9 (3.8-10.6) k/uL RBC 4.41 (4.30-5.90) m/uL Hgb 13.3 (13.0-17.5) gm/dL Hct 39.1 (39.0-53.0) % MCV 88.7 (80.0-100.0) fL MCH 30.1 (25.0-35.0) pg MCHC 34.0 (31.0-37.0) g/dL RDW 15.5 (11.5-15.5) % Plt Count 231 (150-450) k/uL Neutrophils % 77 % Lymphocytes % 14 % Monocytes % 4 % Eosinophils % 3 % Basophils % 1 % Neutrophils # 4.5 (1.3-7.7) k/uL Lymphocytes # 0.8 L (1.0-4.8) k/uL Monocytes # 0.3 (0-1.0) k/uL Eosinophils # 0.2 (0-0.7) k/uL Basophils # 0.0 (0-0.2) k/uL Sodium 137 (137-145) mmol/L Potassium 4.0 (3.5-5.1) mmol/L Chloride 106 (98-107) mmol/L Carbon Dioxide 21 L (22-30) mmol/L Anion Gap 10 mmol/L BUN 17 (9-20) mg/dL Creatinine 0.95 (0.66-1.25) mg/dL Est GFR (CKD-EPI)AfAm 89 (>60 ml/min/1.73 sqM) Est GFR (CKD-EPI)NonAf 77 (>60 ml/min/1.73 sqM) Glucose 127 H (74-99) mg/dL Calcium 8.8 (8.4-10.2) mg/dL Total Bilirubin 0.6 (0.2-1.3) mg/dL AST 25 (17-59) U/L ALT 7 (4-49) U/L Alkaline Phosphatase 41 (38-126) U/L Total Protein 6.7 (6.3-8.2) g/dL Albumin 4.1 (3.5-5.0) g/dL Amylase 62 (30-110) U/L Lipase 102 (23-300) U/L - Radiology Data Radiology results: image reviewed (Chest and abdominal x-rays show no acute process) Disposition Clinical Impression: Choking Disposition: HOME SELF-CARE Condition: Stable Instructions (If sedation given, give patient instructions): Food Impaction (ED) Additional Instructions: Continue liquid or soft diet. Please follow-up with primary care physician in the next day or 2 for recheck. Return for not tolerating oral intake, increased pain, any difficulty in breathing, fevers, worsening symptoms or other concerns. Is patient prescribed a controlled substance at d/c from ED?: No Referrals: Preston Prado DO [Primary Care Provider] - 1-2 days Jaquelin Herr MD [STAFF PHYSICIAN] - 1-2 days Time of Disposition: 17:49
--- NOTE | 2019-11-04 17:04 | XR ---
EXAMINATION TYPE: XR chest 2V DATE OF EXAM: 11/04/2019 COMPARISON: 01/03/2019 HISTORY: Choking episode. Foreign body. TECHNIQUE: Frontal and lateral views of the chest are obtained. FINDINGS: There is no focal air space opacity, pleural effusion, or pneumothorax seen. The cardiac silhouette size is within normal limits. Chronic eventration of the right hemidiaphragm. The osseous structures are intact. Moderate multilevel degenerative change of the spine. No radiopaque foreign b dea. Costochondral calcifications bilaterally. IMPRESSION: No acute cardiopulmonary process. No radiopaque foreign body.
[2019-11-04 17:05] LABS: Basophils % (A) 1 %; Eosinophils # (A) 0.2 k/uL (0-0.7); Eosinophils % (A) 3 %; HCT 39.1 % (39.0-53.0); HGB 13.3 gm/dL (13.0-17.5); Lymphocytes # (A) 0.8 k/uL (1.0-4.8); Lymphocytes % (A) 14 %; MCH 30.1 pg (25.0-35.0); MCV 88.7 fL (80.0-100.0); Mean Platelet Volume 7.1; Monocytes # (A) 0.3 k/uL (0-1.0); Monocytes % (A) 4 %; Neutrophils # (A) 4.5 k/uL (1.3-7.7); Neutrophils % (A) 77 %; Platelet Count 231 k/uL (150-450); RBC 4.41 m/uL (4.30-5.90); RDW 15.5 % (11.5-15.5); WBC 5.9 k/uL (3.8-10.6)
--- NOTE | 2019-11-04 17:05 | XR ---
EXAMINATION TYPE: XR abdomen 2V DATE OF EXAM: 11/04/2019 5:01 PM CLINICAL HISTORY: Choking episode, foreign body. TECHNIQUE: Supine and upright views of the abdomen were obtained. COMPARISON: None. FINDINGS: No dilated large or small bowel. No radiopaque foreign body. Cholecystectomy clips are seen . No evidence of pneumoperitoneum. Moderate degenerative change of the lumbosacral junction and mild dextroscoliosis of the lumbar spine and AP positional. Mild femoral acetabular arthropathy. Lung base s are well aerated. No suspicious calcification in the abdomen or pelvis. IMPRESSION: Nonobstructive bowel gas pattern. No radiopaque foreign body.
[2019-11-04 17:10] VITALS: RESP 18
[2019-11-04 17:13] LABS: Albumin 4.1 g/dL (3.5-5.0); Calcium 8.8 mg/dL (8.4-10.2); Total Bilirubin 0.6 mg/dL (0.2-1.3); Total Protein 6.7 g/dL (6.3-8.2)
[2019-11-04 17:53] LABS: Appearance,Urine Clear (Clear); Bilirubin,Urine Negative (Negative); Blood,Urine Negative (Negative); Color,Urine Yellow; Glucose,Urine (UA) Negative (Negative); Ketones,Urine Negative (Negative); Leukocyte Esterase,Urine Negative (Negative); Nitrite,Urine Negative (Negative); PH, Urine 5.5 (5.0-8.0); Protein,Urine Negative (Negative); Specific Gravity,Urine 1.024 (1.001-1.035); Urobilinogen,Urine <2.0 mg/dL (<2.0)
[2019-11-04 18:11] VITALS: BP 106/72; PULSE 61
== END 2019-11-04 18:11 | disposition home or self-care (01) ==
LOC: EC 16:13
DX: R09.89 Other specified symptoms and signs involving the circulatory and respiratory systems (principal); R10.812 Left upper quadrant abdominal tenderness; R10.12 Left upper quadrant pain; I10 Essential (primary) hypertension; G20 Parkinson's disease; M10.9 Gout, unspecified; F41.9 Anxiety disorder, unspecified; F32.9 Major depressive disorder, single episode, unspecified; Z79.899 Other long term (current) drug therapy; Z88.8 Allergy status to other drugs, medicaments and biological substances; Z96.651 Presence of right artificial knee joint; Z98.890 Other specified postprocedural states; Z87.891 Personal history of nicotine dependence; Z90.49 Acquired absence of other specified parts of digestive tract
CPT/HCPCS: 36415; 80053; 82150; 83690; 85025; 81003; 71046; 74019; 99284; 96374; 96375; J2405

== ENCOUNTER 2019-11-14 02:56 | Emergency (ER) | payer MEDICARE, BC ==
--- NOTE | 2019-11-14 03:00 | ED ---
Weakness HPI - General Stated complaint: altered mental status Time Seen by Provider: 11/14/19 03:00 Source: RN notes reviewed, old records reviewed, Caregiver Mode of arrival: EMS Limitations: no limitations - History of Present Illness MD Complaint: generalized weakness, difficulty walking (fall) -: minutes(s) Location: generalized Severity: moderate Consistency: now resolved Improves with: none Worsens with: none Context: new medication, history of similar Associated Symptoms: denies other symptoms - Related Data Home Medications Medication Instructions Recorded Confirmed Bisoprol/Hydrochlorothiazide [Ziac 1 tab PO DAILY 03/29/14 01/03/19 10-6.25 MG] Fenofibrate 160 mg PO DAILY 03/29/14 01/03/19 Carbidopa/Levodopa [Sinemet CR 1 tab PO TID-W/MEALS 04/19/17 01/03/19 50-200 mg] rOPINIRole HCL [Requip Xl] 4 mg PO DAILY 04/19/17 01/03/19 Sertraline [Zoloft] 50 mg PO DAILY 07/11/18 01/03/19 ALPRAZolam [Xanax] 0.5 mg PO TID PRN 01/03/19 01/03/19 Carbidopa-Levodopa 25-100 mg 1 tab PO DAILY 01/03/19 01/03/19 [Sinemet 25-100] Allergies Allergy/AdvReac Type Severity Reaction Status Date / Time diltiazem HCl [From Cardizem] Allergy Mild Rash/Hives Verified 11/14/19 03:03 Beta-Blockers Allergy Rash/Hives Verified 11/14/19 03:03 (Beta-Adrenergic Bloc Review of Systems ROS Statement: Those systems with pertinent positive or pertinent negative responses have been documented in the HPI. ROS Other: All systems not noted in ROS Statement are negative. Past Medical History Past Medical History: Asthma, GERD/Reflux, Hypertension, Musculoskeletal Disorder, Neurologic Disorder, Pneumonia Additional Past Medical History / Comment(s): Parkinson's disease, difficulty swallowing at times, gait dysfunction, falls, chronic low back pain, hiatal hernia, divertiular dx. History of Any Multi-Drug Resistant Organisms: None Reported Past Surgical History: Back Surgery, Cholecystectomy, Orthopedic Surgery Additional Past Surgical History / Comment(s): right knee scope and partial replacement, EGDs, colonoscopies, laminectomy Past Anesthesia/Blood Transfusion Reactions: No Reported Reaction Past Psychological History: Anxiety, Depression Smoking Status: Former smoker - Past Family History Father Family Medical History: Cancer Additional Family Medical History / Comment(s): Father of colon cancer with mets to spine. He at the age of 51 yrs. Mother Family Medical History: No Reported History Additional Family Medical History / Comment(s): Mother was healthy. General Exam General appearance: alert, in no apparent distress Head exam: Present: atraumatic, normocephalic, normal inspection Eye exam: Present: normal appearance, PERRL, EOMI. Absent: scleral icterus, conjunctival injection, periorbital swelling ENT exam: Present: normal exam, mucous membranes moist Neck exam: Present: normal inspection. Absent: tenderness, meningismus, lymphadenopathy Respiratory exam: Present: normal lung sounds bilaterally. Absent: respiratory distress, wheezes, rales, rhonchi, stridor Cardiovascular Exam: Present: regular rate, normal rhythm, normal heart sounds. Absent: systolic murmur, diastolic murmur, rubs, gallop, clicks GI/Abdominal exam: Present: soft, normal bowel sounds. Absent: distended, tenderness, guarding, rebound, rigid Extremities exam: Present: normal inspection, full ROM, normal capillary refill. Absent: tenderness, pedal edema, joint swelling, calf tenderness Back exam: Present: normal inspection Neurological exam: Present: alert, oriented X3, CN II-XII intact Psychiatric exam: Present: normal affect, normal mood Skin exam: Present: warm, dry, intact, normal color. Absent: rash Course Vital Signs 11/14/19 11/14/19 03:01 04:17 Temperature 98 F Pulse Rate 70 68 Respiratory 18 18 Rate Blood Pressure 163/88 138/74 O2 Sat by Pulse 98 97 Oximetry Disposition Clinical Impression: Weakness, Medication reaction, Fall Disposition: HOME SELF-CARE Condition: Good Instructions (If sedation given, give patient instructions): Weakness (ED), Fall Prevention for Older Adults (ED) Is patient prescribed a controlled substance at d/c from ED?: No Referrals: Preston Prado DO [Primary Care Provider] - 1-2 days
[2019-11-14 03:04] VITALS: RESP 18
[2019-11-14 05:46] VITALS: BP 132/69; PULSE 71; TEMP 98.2
== END 2019-11-14 06:05 | disposition home or self-care (01) ==
LOC: EC 02:56
DX: R53.1 Weakness (principal); Z76.0 Encounter for issue of repeat prescription; R41.82 Altered mental status, unspecified; R26.2 Difficulty in walking, not elsewhere classified; I10 Essential (primary) hypertension; G20 Parkinson's disease; F41.9 Anxiety disorder, unspecified; F32.9 Major depressive disorder, single episode, unspecified; Z79.899 Other long term (current) drug therapy; Z88.8 Allergy status to other drugs, medicaments and biological substances; Z87.891 Personal history of nicotine dependence; W19.XXXA Unspecified fall, initial encounter; Z96.651 Presence of right artificial knee joint
CPT/HCPCS: 99284

== ENCOUNTER 2019-12-01 19:01 | Emergency (ER) | payer MEDICARE, BC ==
[2019-12-01 19:16] VITALS: BP 143/85; PULSE 61; RESP 18; TEMP 97.6
--- NOTE | 2019-12-01 19:34 | CT ---
EXAMINATION TYPE: CT brain wo con DATE OF EXAM: 12/01/2019 COMPARISON: 01/03/2019 HISTORY: 79-year-old male fall, confusion TECHNIQUE: Examination was done in axial plane without intravenous contrast. Coronal and sagittal r econstructions performed. CT DLP: 1098.4 mGycm Automated exposure control for dose reduction was used. FINDINGS: There is no evidence of acute intracranial hemorrhage, acute ischemic changes, mass, mass-effect, or extra-axial fluid collection. There is no effacement of cerebral sulci or basal subarachnoid cister ns. There is no hydrocephalus. There is no midline shift. Gonzalez-white matter distinction is preserv ed. Mild generalized cerebral cortical atrophy. Atherosclerotic calcifications within the bilateral carot id siphons with some vascular prominence in the region of the left cavernous sinus on axial image 12. 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 Scattered mild to moderate mucosal thickening ethmoid air cells. Orbits and globes appear intact. [place] air cells are well pneumatized. Cerumen within the bilateral external auditory canals. IMPRESSION: 1. No acute intracranial abnormality seen. 2. Mild generalized atrophy and changes of chronic small vessel ischemic disease. 3. Incidentally, some vascular prominence in the region of the left cavernous sinus. Follow-up MR ang iography [facility] to exclude underlying aneurysm. 4. 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
--- NOTE | 2019-12-01 19:47 | XR ---
EXAMINATION TYPE: XR knee 4V bilateral DATE OF EXAM: 12/01/2019 COMPARISON: Left knee radiographs from 04/06/2010 HISTORY: 79-year-old male with fall and pain TECHNIQUE: 4 views each side FINDINGS: Right: Postoperative changes of medial unicompartmental arthroplasty. There may be some bony debris p rojecting at the polyethylene spacer along the medial tibial plateau and additional bone densities pr ojecting in the suprapatellar pouch. Degenerative spurring in the patellofemoral compartment. No sign ificant periprosthetic lucency. Mild degenerative spurring in the lateral compartment. Trace knee barbie nt effusion. Left: Bicompartmental joint spaces are maintained on this nonweightbearing view. No significant join t effusion. Mild marginal spurring of the patellofemoral compartment. Patellar remains appropriately situated along the trochlear groove. IMPRESSION: 1. Right: Postoperative changes of medial unicompartmental arthroplasty. Some bony debris projecting at the polyethylene spacer could be chronic or could represent some loose bodies from osteoarthrosis in the other compartments. Additional bony densities in the suprapatellar pouch of the knee joint wit h trace knee joint effusion. 2. Left: No acute osseous abnormality seen.
--- NOTE | 2019-12-01 21:12 | ED ---
General Adult HPI - General Chief complaint: Fall Stated complaint: Fall Time Seen by Provider: 12/01/19 19:06 Source: patient, EMS, RN notes reviewed, old records reviewed Mode of arrival: EMS Limitations: physical limitation - History of Present Illness Initial comments: 79-year-old male patient presents to ED for evaluation of fall. Patient reports that he has Parkinson's and has a shuffling gait. States he is in the living room when he stumbled fell for an hands and knees. Patient reports mild anterior knee pain. Patient did not hit his head. Denies any use of blood thinners. Denies any headache or any changes in vision. EMS did note the patient has asymmetric pupils. Patient did have a reported skull fracture last year. Systemic: Pt denies fatigue, fever/chills, rash. Pt denies weakness, night sweats, weight loss. Neuro: Pt denies headache, visual disturbances, syncope or pre-syncope. HEENT: Pt denies ocular discharge or irritation, otalgia, rhinorrhea, pharyngitis or notable lymphadenopathy. Cardiopulmonary: Pt denies chest pain, SOB, heart palpitations, dyspnea on exertion. Abdominal/GI: Pt denies abdominal pain, n/v/d. : Pt denies dysuria, burning w/ urination, frequency/urgency. Denies new onset urinary or bowel incontinence. MSK: Pt denies myalgia, loss of strength or function in extremities. Neuro: Pt denies new onset weakness, paresthesias. - Related Data Home Medications Medication Instructions Recorded Confirmed Bisoprol/Hydrochlorothiazide [Ziac 1 tab PO DAILY 03/29/14 01/03/19 10-6.25 MG] Fenofibrate 160 mg PO DAILY 03/29/14 01/03/19 Carbidopa/Levodopa [Sinemet CR 1 tab PO TID-W/MEALS 04/19/17 01/03/19 50-200 mg] rOPINIRole HCL [Requip Xl] 4 mg PO DAILY 04/19/17 01/03/19 Sertraline [Zoloft] 50 mg PO DAILY 07/11/18 01/03/19 ALPRAZolam [Xanax] 0.5 mg PO TID PRN 01/03/19 01/03/19 Carbidopa-Levodopa 25-100 mg 1 tab PO DAILY 01/03/19 01/03/19 [Sinemet 25-100] Allergies Allergy/AdvReac Type Severity Reaction Status Date / Time diltiazem HCl [From Cardizem] Allergy Mild Rash/Hives Verified 11/14/19 03:03 Beta-Blockers Allergy Rash/Hives Verified 11/14/19 03:03 (Beta-Adrenergic Bloc Review of Systems ROS Statement: Those systems with pertinent positive or pertinent negative responses have been documented in the HPI. ROS Other: All systems not noted in ROS Statement are negative. Past Medical History Past Medical History: Asthma, GERD/Reflux, Hypertension, Musculoskeletal Disorder, Neurologic Disorder, Pneumonia Additional Past Medical History / Comment(s): Parkinson's disease, difficulty swallowing at times, gait dysfunction, falls, chronic low back pain, hiatal hernia, divertiular dx. History of Any Multi-Drug Resistant Organisms: None Reported Past Surgical History: Back Surgery, Cholecystectomy, Orthopedic Surgery Additional Past Surgical History / Comment(s): right knee scope and partial replacement, EGDs, colonoscopies, laminectomy Past Anesthesia/Blood Transfusion Reactions: No Reported Reaction Past Psychological History: Anxiety, Depression Smoking Status: Former smoker - Past Family History Father Family Medical History: Cancer Additional Family Medical History / Comment(s): Father of colon cancer with mets to spine. He at the age of 51 yrs. Mother Family Medical History: No Reported History Additional Family Medical History / Comment(s): Mother was healthy. General Exam - General Exam Comments Initial Comments: Constitutional: NAD, AOX3, Pt has pleasant affect. HEENT: NC/AT, trachea midline, neck supple, no lymphadenopathy. Posterior pharynx non erythematous, without exudates. External ears appear normal, without discharge. Mucous membranes moist. Pupils are reactive to light. Round. Left pupil is slightly larger than the right pupil., EOM intact. There is no scleral icterus. No pallor noted. Cardiopulmonary: RRR, no murmurs, rubs or gallops, no JVD noted. Lungs CTAB in anterior and posterior coulter. No peripheral edema. Abdominal exam: Abdomen soft and non-distended. Abdomen non-tender to palpation in all 4 quadrants. Bowel sounds active in LLQ. No hepatosplenomegaly. No ecchymosis Neuro: CN II-XII intact. No nuchal rigidity. No raccon eyes, no roberts sign, no hemotympanum. No cervical spinal tenderness. MSK: Mild tenderness to anterior knee region bilaterally. No other areas of tenderness. No posterior calf tenderness bilaterally, homans sign negative bilaterally. Posterior tibialis and radial pulse +2 bilaterally. Sensation intact in upper and lower extremities. Full active ROM in upper and lower ext remities, 5/5 stregnth. Limitations: physical limitation Course Vital Signs 12/01/19 19:08 Temperature 97.6 F Pulse Rate 61 Respiratory 18 Rate Blood Pressure 143/85 O2 Sat by Pulse 99 Oximetry Medical Decision Making - Medical Decision Making 79-year-old male patient presents to ED for evaluation of fall. Patient reports that he has Parkinson's and has a shuffling gait. States he is in the living room when he stumbled fell for an hands and knees. Patient reports mild anterior knee pain. Patient did not hit his head. Denies any use of blood thinners. Denies any headache or any changes in vision. EMS did note the patient has asymmetric pupils. Patient did have a reported skull fracture last year. Patient also has a stable, afebrile. Physical exam. Tenderness to anterior knees. Pupils are unequal however are reactive. Neurologic exam is intact. Plain film of knees bilaterally did display postoperative changes, some bony debris is trace diffusion of the right knee. Left knee had no acute osseous abnormality. CT brain without contrast did not display any acute intracranial abnormality noted. Mild dry was atrophy and chronic small vessel ischemic changes, incidentally some vascular prominence in the region of the left cavernous sinus recommend angiography of several wellness to exclude underlying aneurysm. Findings were explained to patient and his . Patient ambulatory without difficulty and I have any acute complaints. Will be discharged while have patient follow primary care provider and return to ER if condition worsens. Case discussed with Dr. Macdonald. Disposition Clinical Impression: Fall Disposition: HOME SELF-CARE Condition: Stable Instructions (If sedation given, give patient instructions): Fall Prevention (ED) Additional Instructions: Follow up with PCP tomorrow. Have outpatient imaging of arteries or brain. Return to ED if condition worsens in anyway. Is patient prescribed a controlled substance at d/c from ED?: No Referrals: Nonstaff,Physician [Primary Care Provider] - 1-2 days
== END 2019-12-01 21:30 | disposition home or self-care (01) ==
LOC: EC 19:01
DX: M25.561 Pain in right knee (principal); M25.562 Pain in left knee; H57.02 Anisocoria; G31.9 Degenerative disease of nervous system, unspecified; I67.82 Cerebral ischemia; G20 Parkinson's disease; I10 Essential (primary) hypertension; M10.9 Gout, unspecified; F41.9 Anxiety disorder, unspecified; F32.9 Major depressive disorder, single episode, unspecified; Z79.899 Other long term (current) drug therapy; Z88.8 Allergy status to other drugs, medicaments and biological substances; Z96.651 Presence of right artificial knee joint; Z87.81 Personal history of (healed) traumatic fracture; Z98.890 Other specified postprocedural states; Z87.891 Personal history of nicotine dependence; W01.0XXA Fall on same level from slipping, tripping and stumbling without subsequent striking against object, initial encounter; Y92.008 Other place in unspecified non-institutional (private) residence as the place of occurrence of the external cause
CPT/HCPCS: 70450; 99285

== ENCOUNTER 2019-12-15 16:12 | Emergency (ER) | payer MEDICARE, BC ==
[2019-12-15] MEDS ORDERED: DIPH,PERTUS(ACELL)TETVAC-LF 0.5 ML VIAL IM ONE (17:11)
[2019-12-15] MEDS ORDERED: LIDOCAINE 1% INJ 10MG/ML (20 ML MDV) SQ ONE (17:11)
--- NOTE | 2019-12-15 17:52 | ED ---
Fall HPI <Manuel Oneill - Last Filed: 12/15/19 19:11> - General Source: patient, EMS Mode of arrival: EMS <Dominga Da Silva - Last Filed: 12/16/19 03:52> - General Chief Complaint: Fall Stated Complaint: fall Time Seen by Provider: 12/15/19 16:55 - History of Present Illness Initial Comments: 79-year-old male patient presents to the emergency department today for evaluation after experiencing a fall. Patient has a history of Parkinson's disease. He was walking with his walker, we states he was moving too fast when he tripped and fell forward hitting his face on the floor. Patient does have a laceration above the right eyebrow. Denies losing consciousness with the fall. Denies any current headache, blurred vision, double vision. Denies any neck or back pain. He is also reporting right hip pain. Due to the parkinsons patient does occasionally fall and has injured this hip earlier this week as well. Patient is unsure when his last tetanus vaccine was administered. Does not take any blood thinning medications. Patient denies any chest pain, shortness of breath, dizziness, weakness, abdominal pain, nausea, vomiting, or difficulties with bowel movements or urination. (Dominga Da Silva) - Related Data Home Medications Medication Instructions Recorded Confirmed Bisoprol/Hydrochlorothiazide [Ziac 1 tab PO DAILY 03/29/14 01/03/19 10-6.25 MG] Fenofibrate 160 mg PO DAILY 03/29/14 01/03/19 Carbidopa/Levodopa [Sinemet CR 1 tab PO TID-W/MEALS 04/19/17 01/03/19 50-200 mg] rOPINIRole HCL [Requip Xl] 4 mg PO DAILY 04/19/17 01/03/19 Sertraline [Zoloft] 50 mg PO DAILY 07/11/18 01/03/19 ALPRAZolam [Xanax] 0.5 mg PO TID PRN 01/03/19 01/03/19 Carbidopa-Levodopa 25-100 mg 1 tab PO DAILY 01/03/19 01/03/19 [Sinemet 25-100] Allergies Allergy/AdvReac Type Severity Reaction Status Date / Time diltiazem HCl [From Cardizem] Allergy Mild Rash/Hives Verified 06/09/20 17:10 Beta-Blockers Allergy Rash/Hives Verified 12/15/19 17:10 (Beta-Adrenergic Bloc Review of Systems ROS Other: All systems not noted in ROS Statement are negative. <Manuel Oneill - Last Filed: 12/15/19 19:11> ROS Other: All systems not noted in ROS Statement are negative. <GitanachoDominga M - Last Filed: 12/16/19 03:52> ROS Statement: Those systems with pertinent positive or pertinent negative responses have been documented in the HPI. Past Medical History Past Medical History: Asthma, GERD/Reflux, Hypertension, Musculoskeletal Disorder, Neurologic Disorder, Pneumonia Additional Past Medical History / Comment(s): Parkinson's disease, difficulty swallowing at times, gait dysfunction, falls, chronic low back pain, hiatal h ernia, divertiular dx. History of Any Multi-Drug Resistant Organisms: None Reported Past Surgical History: Back Surgery, Cholecystectomy, Orthopedic Surgery Additional Past Surgical History / Comment(s): right knee scope and partial replacement, EGDs, colonoscopies, laminectomy Past Anesthesia/Blood Transfusion Reactions: No Reported Reaction Past Psychological History: Anxiety, Depression Smoking Status: Former smoker Past Alcohol Use History: None Reported Past Drug Use History: None Reported - Past Family History Father Family Medical History: Cancer Additional Family Medical History / Comment(s): Father of colon cancer with mets to spine. He at the age of 51 yrs. Mother Family Medical History: No Reported History Additional Family Medical History / Comment(s): Mother was healthy. <GitanachoDominga Christiane - Last Filed: 12/16/19 03:52> General Exam Limitations: altered mental status General appearance: alert, in no apparent distress, other (This is a well- developed, well-nourished adult male patient in no acute distress. Vital signs upon presentation are temperature 98.1F, pulse 74, respirations 18, blood pressure 126/79, pulse ox 96% on room air.) Eye exam: Present: normal appearance, PERRL, EOMI, other (There is a 5 cm laceration above the right eyebrow, there is soft tissue swelling, no orbital tenderness or bony step-off is noted.). Absent: scleral icterus, conjunctival injection, periorbital swelling (Right superior orbital), periorbital tenderness ENT exam: Present: normal exam, normal oropharynx, mucous membranes moist Neck exam: Present: normal inspection, full ROM, other (Nontender, no step-off, no deformity to firm midline palpation of the posterior cervical spine. Full range of motion without pain or limitation.). Absent: tenderness, meningismus, lymphadenopathy Respiratory exam: Present: normal lung sounds bilaterally. Absent: respiratory distress, wheezes, rales, rhonchi, stridor Cardiovascular Exam: Present: regular rate, normal rhythm, normal heart sounds. Absent: systolic murmur, diastolic murmur, rubs, gallop, clicks GI/Abdominal exam: Present: soft, normal bowel sounds. Absent: distended, tenderness, guarding, rebound, rigid Extremities exam: Present: full ROM, tenderness (The right lateral hip), normal capillary refill, other (Ecchymosis noted over the right lateral hip. There is no shortening or rotation of the right leg. Skin is otherwise pink, warm, dry. Cap refills less than 3 seconds. Pedal and posttibial pulses are 2+ and equal bilaterally.). Absent: pedal edema, joint swelling, calf tenderness Back exam: Present: normal inspection, other (Nontender, no step-off, no deformity to firm midline palpation of the thoracic and lumbar vertebrae. Full range of motion without pain or limitation.). Absent: vertebral tenderness Neurological exam: Present: alert, oriented X3, CN II-XII intact Psychiatric exam: Present: normal affect, normal mood Skin exam: Present: warm, dry, intact, normal color. Absent: rash <Dominga Da Silva - Last Filed: 12/16/19 03:52> Course <Manuel Oneill - Last Filed: 12/15/19 19:11> Vital Signs 12/15/19 12/15/19 12/15/19 16:20 18:43 19:17 Temperature 98.1 F 97.3 F L 98.2 F Pulse Rate 74 63 78 Respiratory 18 19 18 Rate Blood Pressure 126/79 133/82 136/74 O2 Sat by Pulse 96 97 100 Oximetry - Reevaluation(s) Reevaluation #1: 12/15/19 19:11 BEEF RIBBER supervision: I did personally evaluate this case patient did fall workup is negative for acute findings. Patient awake alert oriented history [place] Com[place] Scale 15 he will be discharged. (Manuel Oneill) Procedures - Laceration Laceration #1 Consent Obtained: verbal consent Indication: laceration Site: face (Right eyebrow) Size (cm): 5 Description: linear Depth: simple, single layer Anesthetic Used: lidocaine 1% Anesthesia Technique: local infiltration Amount (mls): 3 Pre-repair: irrigated extensively Type of Sutures: nylon Size of Sutures: 6-0 Number of Sutures: 7 Technique: simple, interrupted Patient Tolerated Procedure: well, other (Swelling ) <Dominga Da Silva - Last Filed: 12/16/19 03:52> Medical Decision Making - Radiology Data Radiology results: report reviewed, image reviewed <Dominga Da Silva - Last Filed: 12/16/19 03:52> - Medical Decision Making 79-year-old male patient presented to the emergency department today for evaluation after experiencing a fall. Patient is reporting mild right hip pain, is able to bear weight. He did have ecchymosis over the right hip. Patient has laceration above the right eyebrow. There is no periorbital tenderness. Extraocular movements are intact. He is neurologically intact with no focal deficits. He had no neck tenderness. CT head C-spine was negative. Laceration was repaired as documented. We did update his tetanus vaccine. He does not take blood thinning medications. He is acting appropriately. He'll be discharged to follow up with his primary care physician for recheck in 1-2 days. They're instructed to return in 5 days to have stitches removed. They're educated regarding signs or symptoms of worsening head injury. Return parameters were discussed in detail. Instructed to follow up with primary care physician for recheck in 1-2 days. He verbalizes understanding and agree with this plan. (Dominga Da Silva) - Radiology Data CT brain C-spine without contrast obtained. Report was reviewed in its entirety. Impression by Dr. Warner shows cerebral atrophy. No acute abnormality. No change. Spondylotic changes in the cervical spine. No fracture seen. No change. 3 views of the right hip and pelvis were obtained. Report was reviewed in its entirety. Impression by Dr. Warner shows no acute abnormality of the pelvis and right hip (Dominga Da Silva) Disposition <Manuel Oneill - Last Filed: 12/15/19 19:11> Is patient prescribed a controlled substance at d/c from ED?: No Time of Disposition: 19:06 <Dominga Da Silva M - Last Filed: 12/16/19 03:52> Clinical Impression: Head injury, Laceration of right eyebrow, Contusion of right hip Disposition: HOME SELF-CARE Condition: Good Instructions (If sedation given, give patient instructions): Care For Your Stitches (ED), Laceration (ED), Head Injury (ED), Contusion in Adults (ED), Hip Pain (ED) Additional Instructions: Cleanse wound twice daily with warm water and antibacterial soap. Apply antibiotic ointment as desired. Avoid direct sunlight to the wound. Return in 5 days to have the stitches removed. Monitor for signs or symptoms of worsening head injury including but not limited to redness, swelling, drainage of pus, fever, or chills. If your hip continues to hurt after one week to 10 days you should have repeat imaging performed by her doctor. Follow-up with your primary care physician for recheck in 1-2 days. Return to the emergency department immediately for any new, worsening, or concerning symptoms. Referrals: Preston Prado DO [Primary Care Provider] - 1-2 days
--- NOTE | 2019-12-15 18:32 | CT ---
EXAMINATION TYPE: CT brain samantha melgar con DATE OF EXAM: 12/15/2019 COMPARISON: 01/03/2019 HISTORY: Fall. Headache. Neck pain. CT DLP: mGycm Automated exposure control for dose reduction was used. There is cerebral cortical atrophy. There is no mass effect nor midline shift. There is no sign of in tracranial hemorrhage. Calvarium is intact. There is no evidence of cerebral edema. There is some straightening of the cervical spine. There is disc space narrowing at C4-5 C5-6 C6-7 wi th spurring of the endplates. There is multilevel hypertrophic cervical facet arthropathy. IMPRESSION: Cerebral atrophy. No acute abnormality. No change. Spondylotic changes in the cervical spine. No fracture seen. No change.
--- NOTE | 2019-12-15 18:33 | XR ---
EXAMINATION TYPE: XR Hip RT and AP Pelvis DATE OF EXAM: 12/15/2019 COMPARISON: NONE HISTORY: Right hip pain. Fall. TECHNIQUE: 3 views FINDINGS: Pelvic ring is intact. Proximal right femur and hip joint appear intact. Hip joint spaces a re fairly well maintained. Sacroiliac joints appear normal. There is some inward first 1.5 cm calcifi cation over the left ischium that could relate to old injury. IMPRESSION: No acute abnormality of the pelvis and right hip.
[2019-12-15 19:31] VITALS: BP 136/74; PULSE 78; RESP 18; TEMP 98.2
== END 2019-12-15 19:17 | disposition home or self-care (01) ==
LOC: EC 16:12
DX: S01.111A Laceration without foreign body of right eyelid and periocular area, initial encounter (principal); S70.01XA Contusion of right hip, initial encounter; Z23 Encounter for immunization; I10 Essential (primary) hypertension; F41.9 Anxiety disorder, unspecified; F32.9 Major depressive disorder, single episode, unspecified; G20 Parkinson's disease; Z79.899 Other long term (current) drug therapy; Z88.8 Allergy status to other drugs, medicaments and biological substances; Z87.891 Personal history of nicotine dependence; W01.198A Fall on same level from slipping, tripping and stumbling with subsequent striking against other object, initial encounter
CPT/HCPCS: 73502; 72125; 70450; 90715; 99284; 12013; 90471; J2001

== ENCOUNTER 2019-12-25 17:16 | Emergency (ER) | payer MEDICARE, BC ==
--- NOTE | 2019-12-25 19:14 | CT ---
EXAMINATION TYPE: CT brain jadeine wo con DATE OF EXAM: 12/25/2019 COMPARISON: 12/15/2019 HISTORY: 79-year-old male with pain after Fall, head trauma. CT DLP: 1522.1 mGycm Automated exposure control for dose reduction was used. Technique: Examination of the head was done in axial plane without intravenous contrast. Coronal and sagittal reconstructions performed. CT of the cervical spine was obtained in axial plane without intravenous injection of contrast mater ial. Coronal and sagittal reformatted images were obtained from the axial views for evaluation of f ractures, spinal alignment and canal. FINDINGS: Head: There is no evidence of acute intracranial hemorrhage, acute ischemic changes, mass, mass-effect, or extra-axial fluid collection. There is no effacement of cerebral sulci or basal subarachnoid cister ns. There is no hydrocephalus. There is no midline shift. Gonzalez-white matter distinction is preserv ed. Mild to moderate generalized supratentorial volume loss. Metastatic calcifications within the carotid siphons. Scattered mild mucosal thickening ethmoid air cells. Mastoid air cells well pneumatized. Orbits and g lobes are intact. No calvarial fracture. Cervical spine: No craniocervical junction abnormality, predental space widening, or prevertebral soft tissue swellin g. Advanced disc/endplate degenerative change from C4 through C7 levels with endplate sclerosis, disc he ight loss, and is calcified, but formation. Assessment of the spinal canal is limited due to artifact from patient's shoulders. Posterior disc protrusion at C4-C5. Hypertrophic facet and uncovertebral j oint arthropathy throughout. Degenerative grade 1 anterolisthesis at C3-C4. No acute fracture identified. Variable [id number] neuroforaminal stenoses. Sagittal and coronal reformatted images confirm above findings. COMBINED IMPRESSION: 1. Cjab-oc-[id number] generalized atrophy. No acute intracranial abnormality seen. 2. Moderately advanced spondylotic changes especially from C4 through C7 levels. Degenerative grade 1 anterolisthesis at C3-C4. Stable exam without acute fracture of the cervical spine. 3. Mild chronic ethmoid sinus disease.
--- NOTE | 2019-12-25 19:28 | XR ---
EXAMINATION TYPE: AP view pelvis and 2 views right hip XR knee 4V LT, XR tibia fibula 2 views LT, XR foot complete 3 views LT DATE OF EXAM: 12/25/2019 COMPARISON: Pelvis 12/15/2019 HISTORY: 79-year-old male fall and pain FINDINGS: Pelvis and right hip: Mild degenerative change in both hips. SI joints appear intact. Smooth delineation to the arcuate gianfranco es of the sacrum. Pubic symphysis appears intact. Left knee: Generalized soft tissue swelling. Patella remains appropriate residual along the trochlear groove. Ex tensor mechanism is intact. No significant knee joint effusion. Vascular calcifications. Mild degener ative spurring patellofemoral compartment. Tibia/fibula: Generalized soft tissue swelling continues. There is some vascular calcifications. No periostitis or osteolysis. No acute fracture seen. Foot: Severe degenerative change first MTP joint with [id number] articulation. Pronounced soft tissue swe lling is noted. Moderate-sized plantar calcaneal spur. No acute fracture, subluxation, dislocation se en. IMPRESSION: 1. Pelvis and right hip: Mild bilateral hip OA. No acute osseous abnormality seen. 2. Left knee and tibia/fibula: Generalized soft tissue swelling. No acute osseous abnormality seen. 3. 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 Pronounced soft tissue swel ling. No acute osseous abnormality seen.
[2019-12-25 19:33] LABS: Basophils % (A) 1 %; Eosinophils # (A) 0.3 k/uL (0-0.7); Eosinophils % (A) 3 %; HCT 33.1 % (39.0-53.0); HGB 11.2 gm/dL (13.0-17.5); Lymphocytes # (A) 1.2 k/uL (1.0-4.8); Lymphocytes % (A) 15 %; MCH 30.5 pg (25.0-35.0); MCHC 33.8 g/dL (31.0-37.0); Mean Platelet Volume 7.5; Monocytes # (A) 0.3 k/uL (0-1.0); Monocytes % (A) 4 %; Neutrophils # (A) 5.9 k/uL (1.3-7.7); Neutrophils % (A) 75 %; Platelet Count 278 k/uL (150-450); RBC 3.68 m/uL (4.30-5.90); RDW 15.8 % (11.5-15.5); WBC 7.8 k/uL (3.8-10.6)
[2019-12-25] MEDS ORDERED: FLUORESCEIN STRIPS 1 MG STRIP RIGHT EYE ONE (19:44)
[2019-12-25] MEDS ORDERED: PROPARACAINE 0.5% OPHTH DROPS 15 ML BTL RIGHT EYE STA (19:44)
--- NOTE | 2019-12-25 19:45 | ED ---
General Adult HPI - General Chief complaint: Fall Stated complaint: Falls, lt hip/rt knee redness Time Seen by Provider: 12/25/19 17:25 Source: patient, RN notes reviewed, old records reviewed Mode of arrival: ambulatory Limitations: no limitations - History of Present Illness Initial comments: 79-year-old male patient past history for dementia, Parkinson's hypertension previously for evaluation of multiple falls. Patient has baseline gait abnormalities secondary to Parkinson's and has been essentially having daily falls for weeks now. Patient had a fall today while using a push lawn more fell forward. Patient landed on his left knee and is having pain from his left knee down his left foot. Patient also complaining of right hip pain. Patient r eports that he did hit his face. Denies any use of blood thinners. Denies any loss of consciousness. Systemic: Pt denies fatigue, fever/chills, rash. Pt denies weakness, night sweats, weight loss. Neuro: Pt denies headache, visual disturbances, syncope or pre-syncope. HEENT: Pt denies ocular discharge or irritation, otalgia, rhinorrhea, pharyngitis or notable lymphadenopathy. Cardiopulmonary: Pt denies chest pain, SOB, heart palpitations, dyspnea on exertion. Abdominal/GI: Pt denies abdominal pain, n/v/d. : Pt denies dysuria, burning w/ urination, frequency/urgency. Denies new onset urinary or bowel incontinence. Neuro: Pt denies new onset weakness, paresthesias. - Related Data Home Medications Medication Instructions Recorded Confirmed Bisoprol/Hydrochlorothiazide [Ziac 1 tab PO DAILY 03/29/14 01/03/19 10-6.25 MG] Fenofibrate 160 mg PO DAILY 03/29/14 01/03/19 Carbidopa/Levodopa [Sinemet CR 1 tab PO TID-W/MEALS 04/19/17 01/03/19 50-200 mg] rOPINIRole HCL [Requip Xl] 4 mg PO DAILY 04/19/17 01/03/19 Sertraline [Zoloft] 50 mg PO DAILY 07/11/18 01/03/19 ALPRAZolam [Xanax] 0.5 mg PO TID PRN 01/03/19 01/03/19 Carbidopa-Levodopa 25-100 mg 1 tab PO DAILY 01/03/19 01/03/19 [Sinemet 25-100] Allergies Allergy/AdvReac Type Severity Reaction Status Date / Time diltiazem HCl [From Cardizem] Allergy Mild Rash/Hives Verified 12/25/19 17:22 Beta-Blockers Allergy Rash/Hives Verified 12/25/19 17:22 (Beta-Adrenergic Bloc Review of Systems ROS Statement: Those systems with pertinent positive or pertinent negative responses have been documented in the HPI. ROS Other: All systems not noted in ROS Statement are negative. Past Medical History Past Medical History: Asthma, Dementia, GERD/Reflux, Hypertension, Musculoskeletal Disorder, Neurologic Disorder, Pneumonia Additional Past Medical History / Comment(s): Parkinson's disease, difficulty swallowing at times, gait dysfunction, chronic low back pain, hiatal hernia, divertiular dx. History of Any Multi-Drug Resistant Organisms: None Reported Past Surgical History: Back Surgery, Cholecystectomy, Orthopedic Surgery Additional Past Surgical History / Comment(s): right knee scope and partial replacement, EGDs, colonoscopies, laminectomy Past Anesthesia/Blood Transfusion Reactions: No Reported Reaction Past Psychological History: Anxiety, Depression Smoking Status: Former smoker Past Alcohol Use History: None Reported Past Drug Use History: None Reported - Past Family History Father Family Medical History: Cancer Additional Family Medical History / Comment(s): Father of colon cancer with mets to spine. He at the age of 51 yrs. Mother Family Medical History: No Reported History Additional Family Medical History / Comment(s): Mother was healthy. General Exam - General Exam Comments Initial Comments: Constitutional: NAD, AOX3, Pt has pleasant affect. HEENT: NC/AT, trachea midline, neck supple, no lymphadenopathy. Posterior pharynx non erythematous, without exudates. External ears appear normal, without discharge. Mucous membranes moist. Eyes PERRLA, EOM intact. There is no scleral icterus. No pallor noted. Right-sided subconjunctival hemorrhage noted. Intraocular pressure average of 16 bilaterally. Patient stated revealed small corneal abrasion over her pupil. Anterior chamber clear. Cardiopulmonary: RRR, no murmurs, rubs or gallops, no JVD noted. Lungs CTAB in anterior and posterior coulter. No peripheral edema. Abdominal exam: Abdomen soft and non-distended. Abdomen non-tender to palpation in all 4 quadrants. Bowel sounds active in LLQ. No hepatosplenomegaly. No ecchymosis Neuro: CN II-XII intact. No nuchal rigidity. No raccon eyes, no roberts sign, no hemotympanum. No cervical spinal tenderness. MSK: Left anterior knee, tibia-fibula mildly tender to palpation. Neurovascularly intact. Left anterior knee is mildly erythematous. Range of motion is intact. There are old-appearing ecchymoses noted on the posterior aspect of the legs. No other signs of trauma noted. Limitations: no limitations Course Vital Signs 12/25/19 12/25/19 17:17 21:12 Temperature 97.5 F L 98.0 F Pulse Rate 64 72 Respiratory 18 19 Rate Blood Pressure 117/68 154/75 O2 Sat by Pulse 99 100 Oximetry Medical Decision Making - Medical Decision Making 71-year-old male patient presents to ED from multiple falls. Patient had a fall today while he was walking from his left knee and fell forward hitting his head. Nasal but there is no loss of consciousness. Physical exam displayed old ecchymoses and posterior legs. Some soft tissue swelling to the right knee. There is a subconjunctival hemorrhage noted on the right eye./Sustain revealed a small corneal abrasion. Intraocular pressures are normal bilaterally and anterior chamber is clear. Patient is not a contact lens user. Patient will be placed on erythromycin ointment will follow-up with ophthalmology. Plain films displayed soft tissue swelling without acute osseous process. CT brain C-spine did not display acute process. Patient was recommended admission to hospital for recurrent falls however patient and are declining this. Will follow up with primary care provider tomorrow and will return to ER if condition worsens. Patient will be also be given an orthopedic follow-up symptoms persist. Case discussed with Dr. Jenkins/ - Lab Data Result diagrams: 12/25/19 17:25 12/25/19 17:25 Lab Results 12/25/19 12/25/19 Range/Units 17:25 17:25 WBC 7.8 (3.8-10.6) k/uL RBC 3.68 L (4.30-5.90) m/uL Hgb 11.2 L (13.0-17.5) gm/dL Hct 33.1 L (39.0-53.0) % MCV 90.0 (80.0-100.0) fL MCH 30.5 (25.0-35.0) pg MCHC 33.8 (31.0-37.0) g/dL RDW 15.8 H (11.5-15.5) % Plt Count 278 (150-450) k/uL Neutrophils % 75 % Lymphocytes % 15 % Monocytes % 4 % Eosinophils % 3 % Basophils % 1 % Neutrophils # 5.9 (1.3-7.7) k/uL Lymphocytes # 1.2 (1.0-4.8) k/uL Monocytes # 0.3 (0-1.0) k/uL Eosinophils # 0.3 (0-0.7) k/uL Basophils # 0.0 (0-0.2) k/uL Sodium 136 L (137-145) mmol/L Potassium 4.2 (3.5-5.1) mmol/L Chloride 104 (98-107) mmol/L Carbon Dioxide 25 (22-30) mmol/L Anion Gap 7 mmol/L BUN 19 (9-20) mg/dL Creatinine 0.97 (0.66-1.25) mg/dL Est GFR (CKD-EPI)AfAm 87 (>60 ml/min/1.73 sqM) Est GFR (CKD-EPI)NonAf 75 (>60 ml/min/1.73 sqM) Glucose 106 H (74-99) mg/dL Calcium 9.2 (8.4-10.2) mg/dL Total Bilirubin 0.9 (0.2-1.3) mg/dL AST 20 (17-59) U/L ALT <6 (4-49) U/L Alkaline Phosphatase 48 (38-126) U/L Total Protein 6.6 (6.3-8.2) g/dL Albumin 3.9 (3.5-5.0) g/dL Disposition Clinical Impression: Fall, Corneal abrasion, Knee sprain Disposition: HOME SELF-CARE Condition: Stable Instructions (If sedation given, give patient instructions): Knee Sprain (ED), Corneal Abrasion (ED), Fall Prevention (ED) Additional Instructions: Follow-up with primary care provider and telephone interceptor operator tomorrow. Follow-up with with orthopedic surgeon if the knee pain persists. Recommend using a walker, use 1/2 inch of ointment into right eye every 6 hours for the next 5 days. Return to ER if condition worsens. Is patient prescribed a controlled substance at d/c from ED?: No Referrals: Preston Prado DO [Primary Care Provider] - 1-2 days Joaquina Calle MD [STAFF PHYSICIAN] - 1-2 days Talon Antonio MD [STAFF PHYSICIAN] - 1-2 days
[2019-12-25 19:47] LABS: ALT <6 U/L (4-49); AST 20 U/L (17-59); African American GFR (CKD) 87 (>60 ml/min/1.73 sqM); Albumin 3.9 g/dL (3.5-5.0); Alkaline Phosphatase 48 U/L (38-126); Anion Gap 7 mmol/L; Blood Urea Nitrogen 19 mg/dL (9-20); Calcium 9.2 mg/dL (8.4-10.2); Carbon Dioxide 25 mmol/L (22-30); Chloride 104 mmol/L (98-107); Glucose 106 mg/dL (74-99); Non-African American GFR(CKD) 75 (>60 ml/min/1.73 sqM); Potassium 4.2 mmol/L (3.5-5.1); Sodium 136 mmol/L (137-145); Total Bilirubin 0.9 mg/dL (0.2-1.3); Total Protein 6.6 g/dL (6.3-8.2)
[2019-12-25] MEDS ORDERED: ERYTHROMYCIN 5 MG/GM OPHTH OINT 1 GM TUBE RIGHT EYE STA (20:38)
[2019-12-25] MEDS ORDERED: HYDROcodone/APAP 5-325MG 1 EACH TAB PO STA (21:11)
[2019-12-25] MEDS ORDERED: ACET/COD 300 MG/30 MG STARTER PACK 6 TAB BTL PO STA (21:11)
[2019-12-25 21:15] VITALS: BP 154/75; PULSE 72; RESP 19; TEMP 98
[2019-12-25] MEDS ORDERED: IBUPROFEN 600 MG STARTER PACK 4 TAB BTL PO STA (21:16)
== END 2019-12-25 21:30 | disposition home or self-care (01) ==
LOC: EC 17:16
DX: S83.92XA Sprain of unspecified site of left knee, initial encounter (principal); S05.01XA Injury of conjunctiva and corneal abrasion without foreign body, right eye, initial encounter; H11.31 Conjunctival hemorrhage, right eye; I10 Essential (primary) hypertension; G20 Parkinson's disease; J45.909 Unspecified asthma, uncomplicated; F41.9 Anxiety disorder, unspecified; F32.9 Major depressive disorder, single episode, unspecified; Z79.899 Other long term (current) drug therapy; Z88.8 Allergy status to other drugs, medicaments and biological substances; Z87.891 Personal history of nicotine dependence
CPT/HCPCS: 36415; 70450; 72125; 73502; 80053; 85025; 99284

== ENCOUNTER → 2020-01-14 | Outpatient (CLI) | payer MEDICARE, BC ==
--- NOTE | 2020-01-14 14:48 | US ---
EXAMINATION TYPE: US venous doppler duplex LE DATE OF EXAM: 01/14/2020 2:26 PM COMPARISON: NONE CLINICAL HISTORY: 79-year-old male I82.423 DVT. Patient fell. Left knee SIDE PERFORMED: Bilateral TECHNIQUE: The lower extremity deep venous system is examined utilizing real time linear array sonog nestor with graded compression, doppler sonography and color-flow sonography. VESSELS IMAGED: External Iliac Vein (EIV) Common Femoral Vein Deep Femoral Vein Greater Saphenous Vein * Femoral Vein Popliteal Vein Small Saphenous Vein * Proximal Calf Veins (* superficial vessels) Right Leg: Negative for DVT Left Leg: Negative for DVT IMPRESSION: No evidence for DVT within the bilateral lower extremities imaged from the groin to the upper calves.
== END | disposition home or self-care (01) ==
LOC: RADUSWWP 13:46
PROVIDERS: ATTEND General Practice
DX: I82.423 Acute embolism and thrombosis of iliac vein, bilateral (principal)
CPT/HCPCS: 93970

== ENCOUNTER → 2020-01-14 | Outpatient (CLI) | payer MEDICARE, BC ==
--- NOTE | 2020-01-14 13:36 | XR ---
EXAMINATION TYPE: XR knee limited LT DATE OF EXAM: 01/14/2020 CLINICAL HISTORY: pain TECHNIQUE: Three views of the left knee are obtained. COMPARISON: None. FINDINGS: There is no acute fracture/dislocation. The tri-compartment joint spaces appear within no rmal limits. Patellar spurring noted. The overlying soft tissue appears unremarkable. IMPRESSION: There is no acute fracture or dislocation ICD 10 NO FRACTURE, INITIAL EVALUATION
--- NOTE | 2020-01-14 13:52 | MR ---
EXAMINATION TYPE: MR brain wo/w con DATE OF EXAM: 01/14/2020 1:42 PM COMPARISON: 07/07/2016 HISTORY: Dizziness, Hearing Loss, Possible Aneurysm. Dementia CONTRAST: Patient received 7.5 mL intravenous Gadavist gadolinium contrast. Multiplanar and multispin-echo imaging of the brain was performed . Pre and post contrast enhanced i mages are obtained. Patient motion limits examination. The ventricles, basal cisterns and sulci overlying the cerebral convexities are moderately enlarged. There is evidence of mild to moderate periventricular white matter ischemic demyelination. Remote deep white matter insults are also noted. No acute edema is seen on diffusion weighted imaging. There is no evidence for midline shift or mass effect. Acute intracranial hemorrhage or extra-axial collection is not evident. No enhancing lesions are seen. The paranasal sinuses and mastoid air cells are well-aerated. IMPRESSION: Age-related atrophic and chronic small vessel ischemic change. No acute intracranial process at this time. No enhancing lesions are seen.
== END | disposition home or self-care (01) ==
LOC: RADMRIMAIN 11:55
PROVIDERS: ATTEND Registered Nurse
DX: G31.1 Senile degeneration of brain, not elsewhere classified (principal); I73.89 Other specified peripheral vascular diseases; G20 Parkinson's disease; R26.9 Unspecified abnormalities of gait and mobility; M25.562 Pain in left knee
CPT/HCPCS: 73560; 70553; A9585

== ENCOUNTER → 2020-05-26 | Outpatient (CLI) | payer MEDICARE, BC ==
--- NOTE | 2020-05-26 15:18 | FL ---
EXAMINATION TYPE: FL barium swallow w video DATE OF EXAM: 05/26/2020 COMPARISON: NONE HISTORY: Difficulty swallowing, dysphasia TECHNIQUE: Fluoroscopy. FINDINGS: Fluoroscopic guidance was provided for the procedure performed in conjunction with the [facility] pathology department. Please see complete report forthcoming from the Speech Pathology departmen t. Various consistencies from thin liquid to solids were administered. Fluoroscopy time 1 minute 3 seconds. Number of images: 0. No aspiration or penetration was evident. Some early transient penetration with initial thin liquids was evident. Some transient protrusion is evident drinking through a straw. Minimal pooling was observed in the vallecula. There was normal propulsion of the bolus. IMPRESSION: 1. Minimal transient penetration without aspiration. 2. Minimal vallecular retention.
== END | disposition home or self-care (01) ==
LOC: RADFLMAIN 14:29
PROVIDERS: ATTEND Psychiatry & Neurology Pain Medicine
DX: R93.3 Abnormal findings on diagnostic imaging of other parts of digestive tract (principal); Z88.8 Allergy status to other drugs, medicaments and biological substances
CPT/HCPCS: 74230

== ENCOUNTER → 2020-06-09 | Outpatient (CLI) | payer MEDICARE, BC ==
--- NOTE | 2020-06-09 16:16 | NM ---
EXAMINATION TYPE: NM DatScan Brain SPECT DATE OF EXAM: 06/09/2020 COMPARISON: MRI brain January 14, 2020 HISTORY: Essential tremor TECHNIQUE: 10 drops of Lugol's solution was administered 1 hour prior to injection as a thyroid bloc doni agent. After the administration of 4.57 mCi I-123 Ioflupane DaTscan. Images obtained 3 hours p ost injection. SPECT images of the brain were acquired with axial and coronal reconstructions. FINDINGS: The DaTSCAN demonstrates significantly reduced uptake of tracer bilaterally to the striata, indicatin g the loss of the presynaptic dopaminergic terminals. IMPRESSION: This abnormal appearance would be supportive of a clinical diagnosis of either DLB, idiop athic PD, PS, or Parkinson?s dementia disease.
== END | disposition home or self-care (01) ==
LOC: RADNMMAIN 10:54
PROVIDERS: ATTEND Psychiatry & Neurology Neurology
DX: G25.0 Essential tremor (principal)
CPT/HCPCS: 78803; A9584

== ENCOUNTER 2020-08-31 09:52 | Emergency (ER) | payer MEDICARE, BC ==
--- NOTE | 2020-08-31 10:22 | ED ---
General Adult HPI - General Chief complaint: Fall Stated complaint: Altered mental status Time Seen by Provider: 08/31/20 09:56 Source: patient, EMS Mode of arrival: EMS - History of Present Illness Initial comments: Dictation was produced using [employer] dictation software. please excuse any grammatical, word or spelling errors. This patient was cared for during a federal and state declared state of emergency secondary to Covid 19 Chief Complaint: 80-year-old male past medical history of dementia presents after fall and with hallucinations today History of Present Illness: Is 80-year-old male. He was brought in by EMS. Patient is unreliable historian. Majority of history of present illness was obtained from EMS was at bedside. Patient allegedly suffered a fall yesterday. Is unclear how he fell or why he fell. He does report that he was leaning over to pecan picker a wrench on the ground when he lost his balance fall fell forward. EMS was called by patient's . He allegedly began having hallucinations. He was saying things that occurred 30 years ago and talking to people that were not there. Patient otherwise has no complaints at this time. According to EMS who received HPI from patient fell yesterday. It is unclear patient had a loss of consciousness. Began having hallucinations today. Nurse did speak on the phone reports that patient has history of hallucinations and falls often. The ROS documented in this emergency department record has been reviewed and confirmed by me. Those systems with pertinent positive or negative responses have been documented in the HPI. All other systems are other negative and/or no ncontributory. PHYSICAL EXAM: General Impression: Alert and oriented x3, not in acute distress HEENT: Normocephalic atraumatic, extra-ocular movements intact, pupils equal and reactive to light bilaterally, mucous membranes moist. Cardiovascular: Heart regular rate and rhythm Chest: Able to complete full sentences, no retractions, no tachypnea Abdomen: abdomen soft, non-tender, non-distended, no organomegaly Musculoskeletal: Pulses present and equal in all extremities, no peripheral edema Motor: no focal deficits noted Neurological: CN II-XII grossly intact, no focal motor or sensory deficits noted Skin: Intact with no visualized rashes Psych: Normal affect and mood ED course: 80-year-old male with past medical history of dementia presents after fall and hallucinations. Patient is well-appearing at bedside. He is allegedly at baseline alert and oriented 2-3 out of 4. His physical examination is benign. Laboratory evaluation obtained showing no acute processes. Computed tomography scan of the head and C-spine shows no acute processes. Pelvis x-ray shows no acute processes. Chest x-rays negative. at bedside reports that patient appears to be at baseline currently. Advised to follow up with neurologist and primary care physician. is agreeable to disposition to discharge. EKG interpretation: Ventricular rate 75, sinus rhythm with first-degree AV block, AZ interval to 44, QRS 96, QTC 444. No AZ prolongation, no QTC prolongation, no ST or T-wave changes noted. EKG compared to 01/03/2019 showing no changes. Overall, this EKG is unremarkable - Related Data Home Medications Medication Instructions Recorded Confirmed Bisoprol/Hydrochlorothiazide [Ziac 1 tab PO DAILY 03/29/14 01/03/19 10-6.25 MG] Fenofibrate 160 mg PO DAILY 03/29/14 01/03/19 Carbidopa/Levodopa [Sinemet CR 1 tab PO TID-W/MEALS 04/19/17 01/03/19 50-200 mg] rOPINIRole HCL [Requip Xl] 4 mg PO DAILY 04/19/17 01/03/19 Sertraline [Zoloft] 50 mg PO DAILY 07/11/18 01/03/19 ALPRAZolam [Xanax] 0.5 mg PO TID PRN 01/03/19 01/03/19 Carbidopa-Levodopa 25-100 mg 1 tab PO DAILY 01/03/19 01/03/19 [Sinemet 25-100] Allergies Allergy/AdvReac Type Severity Reaction Status Date / Time diltiazem HCl [From Cardizem] Allergy Mild Rash/Hives Verified 12/25/19 17:22 Beta-Blockers Allergy Rash/Hives Verified 12/25/19 17:22 (Beta-Adrenergic Bloc Review of Systems ROS Statement: Those systems with pertinent positive or pertinent negative responses have been documented in the HPI. ROS Other: All systems not noted in ROS Statement are negative. Past Medical History Past Medical History: Asthma, Dementia, GERD/Reflux, Hypertension, Musculoskeletal Disorder, Neurologic Disorder, Pneumonia Additional Past Medical History / Comment(s): Parkinson's disease, difficulty swallowing at times, gait dysfunction, chronic low back pain, hiatal hernia, divertiular dx. History of Any Multi-Drug Resistant Organisms: None Reported Past Surgical History: Back Surgery, Cholecystectomy, Orthopedic Surgery Additional Past Surgical History / Comment(s): right knee scope and partial replacement, EGDs, colonoscopies, laminectomy Past Anesthesia/Blood Transfusion Reactions: No Reported Reaction Past Psychological History: Anxiety, Depression Smoking Status: Former smoker Past Alcohol Use History: None Reported Past Drug Use History: None Reported - Past Family History Father Family Medical History: Cancer Additional Family Medical History / Comment(s): Father of colon cancer with mets to spine. He at the age of 51 yrs. Mother Family Medical History: No Reported History Additional Family Medical History / Comment(s): Mother was healthy. Course Vital Signs 08/31/20 08/31/20 09:58 11:30 Temperature 97.7 F 98.7 F Pulse Rate 81 74 Respiratory 18 20 Rate Blood Pressure 163/73 166/79 O2 Sat by Pulse 96 98 Oximetry Medical Decision Making - Lab Data Result diagrams: 08/31/20 10:18 08/31/20 10:18 Lab Results 08/31/20 08/31/20 08/31/20 Range/Units 10:18 10:18 10:18 WBC 4.8 (3.8-10.6) k/uL RBC 4.64 (4.30-5.90) m/uL Hgb 13.3 (13.0-17.5) gm/dL Hct 40.3 (39.0-53.0) % MCV 87.0 (80.0-100.0) fL MCH 28.7 (25.0-35.0) pg MCHC 33.0 (31.0-37.0) g/dL RDW 16.6 H (11.5-15.5) % Plt Count 226 (150-450) k/uL MPV 7.1 Neutrophils % 74 % Lymphocytes % 15 % Monocytes % 5 % Eosinophils % 4 % Basophils % 1 % Neutrophils # 3.5 (1.3-7.7) k/uL Lymphocytes # 0.7 L (1.0-4.8) k/uL Monocytes # 0.2 (0-1.0) k/uL Eosinophils # 0.2 (0-0.7) k/uL Basophils # 0.1 (0-0.2) k/uL Anisocytosis Slight PT 10.0 (9.0-12.0) sec INR 0.9 (<1.2) APTT 24.8 (22.0-30.0) sec Sodium 138 (137-145) mmol/L Potassium 4.2 (3.5-5.1) mmol/L Chloride 104 (98-107) mmol/L Carbon Dioxide 24 (22-30) mmol/L Anion Gap 10 mmol/L BUN 19 (9-20) mg/dL Creatinine 0.95 (0.66-1.25) mg/dL Est GFR (CKD-EPI)AfAm 88 (>60 ml/min/1.73 sqM) Est GFR (CKD-EPI)NonAf 76 (>60 ml/min/1.73 sqM) Glucose 147 H (74-99) mg/dL Calcium 9.7 (8.4-10.2) mg/dL Magnesium 1.7 (1.6-2.3) mg/dL Total Bilirubin 0.4 (0.2-1.3) mg/dL AST 16 L (17-59) U/L ALT 10 (4-49) U/L Alkaline Phosphatase 51 (38-126) U/L Total Protein 6.6 (6.3-8.2) g/dL Albumin 4.0 (3.5-5.0) g/dL Lipase 102 (23-300) U/L Disposition Clinical Impression: Fall, Dementia Disposition: HOME SELF-CARE Condition: Good Instructions (If sedation given, give patient instructions): Fall Prevention for Older Adults (ED) Is patient prescribed a controlled substance at d/c from ED?: No Referrals: Preston Prado DO [Primary Care Provider] - 1-2 days Time of Disposition: 11:44
[2020-08-31 10:37] LABS: Anisocytosis Slight; Basophils # (A) 0.1 k/uL (0-0.2); Basophils % (A) 1 %; Eosinophils # (A) 0.2 k/uL (0-0.7); Eosinophils % (A) 4 %; HCT 40.3 % (39.0-53.0); HGB 13.3 gm/dL (13.0-17.5); Lymphocytes # (A) 0.7 k/uL (1.0-4.8); Lymphocytes % (A) 15 %; MCH 28.7 pg (25.0-35.0); Mean Platelet Volume 7.1; Monocytes # (A) 0.2 k/uL (0-1.0); Monocytes % (A) 5 %; Neutrophils # (A) 3.5 k/uL (1.3-7.7); Neutrophils % (A) 74 %; Platelet Count 226 k/uL (150-450); RBC 4.64 m/uL (4.30-5.90); RDW 16.6 % (11.5-15.5); WBC 4.8 k/uL (3.8-10.6)
[2020-08-31 10:45] LABS: INR 0.9 (<1.2); Partial Thromboplastin Time 24.8 sec (22.0-30.0)
[2020-08-31 10:48] LABS: Calcium 9.7 mg/dL (8.4-10.2); Magnesium 1.7 mg/dL (1.6-2.3); Potassium 4.2 mmol/L (3.5-5.1); Total Bilirubin 0.4 mg/dL (0.2-1.3); Total Protein 6.6 g/dL (6.3-8.2)
--- NOTE | 2020-08-31 11:28 | XR ---
EXAMINATION TYPE: XR chest 1V portable DATE OF EXAM: 08/31/2020 COMPARISON: NONE HISTORY: Pain TECHNIQUE: Single frontal view of the chest is obtained. FINDINGS: There is no focal air space opacity, pleural effusion, or pneumothorax seen. The cardiac silhouette size is within normal limits. The osseous structures are intact. Heart enlarged and ther e is hyperinflation. Arthropathy of the shoulders. IMPRESSION: 1. Cardiomegaly. Correlate for COPD.
--- NOTE | 2020-08-31 11:29 | XR ---
EXAMINATION TYPE: XR pelvis AP view DATE OF EXAM: 08/31/2020 COMPARISON: NONE HISTORY: Pain The osseous structures are intact and the joint spaces are preserved. No acute fracture is seen. Vi sualized bowel gas pattern is nonspecific. Hypertrophic and degenerative change of the spine. Slight deformity of the anterior, acetabulum the left is stable from 01/03/2019 and therefore chronic. IMPRESSION: 1. No acute fracture.
[2020-08-31 11:35] VITALS: BP 166/79; PULSE 74; RESP 20; TEMP 98.7
--- NOTE | 2020-08-31 11:37 | CT ---
EXAMINATION TYPE: CT brain samantha melgar con DATE OF EXAM: 08/31/2020 COMPARISON: 12/25/2019 HISTORY: Fall, Syncopal episode CT DLP: 1522 mGycm Automated exposure control for dose reduction was used. TECHNIQUE: CT scan of the head and cervical spine are performed without contrast. FINDINGS: There is no evidence of acute intracranial hemorrhage, acute ischemic changes, mass, mass -effect, or extra-axial fluid collection. There is no effacement of cerebral sulci or basal subarachn oid cisterns. There is no hydrocephalus. There is no midline shift. Gonzalez-white matter distinction is preserved. Mild to moderate generalized supratentorial volume loss. Metastatic calcifications within the carotid siphons. Scattered mild mucosal thickening ethmoid air cells. Mastoid air cells well pneu matized. Orbits and globes are intact. No calvarial fracture. No craniocervical junction abnormality, predental space widening, or prevertebral soft tissue swellin g. Advanced disc/endplate degenerative change from C4 through C7 levels with endplate sclerosis, disc height loss, and is calcified, but formation. Assessment of the spinal canal is limited due to artif act and resolution. Posterior disc protrusion at C4-C5. Hypertrophic facet and uncovertebral joint ar thropathy throughout. Degenerative grade 1 anterolisthesis at C3-C4. No acute fracture identified. Va riable [id number] neuroforaminal stenoses. IMPRESSION: 1. Mild to moderate generalized degenerative change. Cannot exclude the canal stenosis. Multilevel fo raminal encroachment noted. 2. Multilevel degenerative disc disease. Persistent anterolisthesis of C3 on C4
== END 2020-08-31 12:02 | disposition home or self-care (01) ==
LOC: EC 09:52
DX: F03.90 Unspecified dementia, unspecified severity, without behavioral disturbance, psychotic disturbance, mood disturbance, and anxiety (principal); R44.3 Hallucinations, unspecified; I44.0 Atrioventricular block, first degree; I10 Essential (primary) hypertension; G20 Parkinson's disease; F41.9 Anxiety disorder, unspecified; F32.9 Major depressive disorder, single episode, unspecified; Z79.899 Other long term (current) drug therapy; Z88.8 Allergy status to other drugs, medicaments and biological substances; Z96.641 Presence of right artificial hip joint; Z96.652 Presence of left artificial knee joint; Z87.891 Personal history of nicotine dependence
CPT/HCPCS: 36415; 70450; 71045; 72125; 72170; 80053; 83690; 83735; 85025; 85610; 85730; 93005; 99285

== ENCOUNTER → 2020-09-12 | Day surgery (SDC) | payer MEDICARE, BC ==
[2020-09-07 14:21] VITALS: BMI 29.8
[~2020-09-12] MED LIST changes: +LACTATED RINGERS 1,000 ML IV ONE; +LIDOCAINE 1% (10MG/ML) FOR IV START INTRADERMA PRN; +LIDOCAINE 1% INJ 10MG/ML (20 ML MDV) ONE; +PROPOFOL 10 MG/ML 20 ML VIAL IV ONE
[2020-09-12 09:26] VITALS: TEMP 97.8
--- NOTE | 2020-09-12 10:35 | P.PCN ---
Date of Procedure: 09/12/20 Description of Procedure: BRIEF HISTORY: Patient is a 80-year-old male presenting for outpatient es ophagogastroduodenoscopy for evaluation of dysphagia. Patient reports intermittent problems particularly with solids. Previously he has required EGD with dilation the last 02/24/2013. PROCEDURE PERFORMED: Esophagogastroduodenoscopy with biopsy. PREOPERATIVE DIAGNOSIS: Dysphagia, esophageal dysphagia. ESTIMATED BLOOD LOSS: Minimal. IV sedation per anesthesia. PROCEDURE: After informed consent was obtained, the patient was brought into the endoscopy unit. IV sedation was administered by Anesthesia under continuous monitoring. Initially the Olympus GIF-190 video endoscope was inserted into the mouth. Esophagus intubated without any difficulty. It was gradually advanced into the stomach and duodenum and carefully examined. The bulb and the second part of the duodenum appeared normal, with biopsies taken. The scope at this time was withdrawn to the stomach, adequately insufflated with air, and upon careful examination, mucosa of the antrum, body, cardia and the fundus appeared normal with biopsies of the antrum and body taken. The scope was then withdrawn into the esophagus. The GE junction was located at 41 cm from the incisors with a benign appearing patent Schatzki's ring just proximal to the GE junction which was serially dilated with a [id number] balloon dilator to 1516.518 mm. Biopsies were taken of the lower esophagus. a small 1 cm hiatal hernia was noted The esophagus appeared normal. There were no erosions or ulcerations seen and the patient tolerated the procedure well. IMPRESSION: 1. Lower esophageal Schatzki's ring dilated with [id number] balloon dilator . 2. Small hiatal hernia. 3. Biopsies of the duodenum, antrum body and lower esophagus. RECOMMENDATIONS: The findings of this examination were discussed with the patient and his family. Okay to resume diet. Okay to resume medications. Await pathology from biopsies. Follow up in the GI clinic as scheduled.
[2020-09-12 10:38] VITALS: RESP 20
[2020-09-12 10:56] VITALS: BP 142/69; PULSE 62
== END ==
LOC: ORWHC2ENDO 08:55
PROVIDERS: ATTEND Internal Medicine
DX: K22.2 Esophageal obstruction (principal); K29.50 Unspecified chronic gastritis without bleeding; K44.9 Diaphragmatic hernia without obstruction or gangrene; K20.90 Esophagitis, unspecified without bleeding; R13.10 Dysphagia, unspecified; I10 Essential (primary) hypertension; J45.909 Unspecified asthma, uncomplicated; Z79.899 Other long term (current) drug therapy; Z88.8 Allergy status to other drugs, medicaments and biological substances
CPT/HCPCS: 88305; 43239; 43249; J2001; J2704; C1726

== ENCOUNTER 2020-09-23 13:26 | Emergency (ER) | payer MEDICARE, BC ==
--- NOTE | 2020-09-23 13:56 | ED ---
General Adult HPI - General Chief complaint: Psychiatric Symptoms Stated complaint: Dementia Time Seen by Provider: 09/23/20 13:55 Source: patient, EMS Mode of arrival: EMS Limitations: altered mental status - History of Present Illness Initial comments: Patient presents to the ED by ambulance for evaluation. Per EMS, the patient's reported to them that the patient has dementia, and he has not been sleeping and has been more combative with her recently. is reportedly going to petition the patient. Patient is A and O 2 on arrival to the ED. Patient denies having any symptoms or complaints to me. Patient denies having any pain, fever or chills, headache, focal numbness/weakness/neuro deficit, chest pain, dyspnea, cough or cold symptoms, palpitations, abdominal pain, nausea/vomiting/diarrhea, bloody or melanotic stool, dysuria or urinary symptoms, or any other symptoms or complaints. - Related Data Home Medications Medication Instructions Recorded Confirmed Fenofibrate 160 mg PO DAILY 03/29/14 09/07/20 Carbidopa/Levodopa [Sinemet CR 2.5 tab PO DAILY 04/19/17 09/07/20 50-200 mg] rOPINIRole HCL [Requip Xl] 8 mg PO DAILY 04/19/17 09/07/20 ALPRAZolam [Xanax] 1 mg PO HS 01/03/19 09/07/20 Carbidopa-Levodopa ER 50-200Mg 2 each PO 1400 09/07/20 09/07/20 [Sinemet ER 50-200] Escitalopram [Lexapro] 10 mg PO DAILY 09/07/20 09/07/20 amantadine HCL [Amantadine] 100 mg PO DAILY 09/07/20 09/07/20 Allergies Allergy/AdvReac Type Severity Reaction Status Date / Time diltiazem HCl [From Cardizem] Allergy Mild Rash/Hives Verified 09/23/20 13:35 Beta-Blockers Allergy Rash/Hives Verified 09/23/20 13:35 (Beta-Adrenergic Bloc Review of Systems ROS Statement: Those systems with pertinent positive or pertinent negative responses have been documented in the HPI. ROS Other: All systems not noted in ROS Statement are negative. Past Medical History Past Medical History: Asthma, Dementia, GERD/Reflux, Hypertension, Musculoskeletal Disorder, Neurologic Disorder, Pneumonia Additional Past Medical History / Comment(s): Parkinson's disease, difficulty swallowing at times, gait dysfunction, chronic low back pain, hiatal hernia, divertiular dx. History of Any Multi-Drug Resistant Organisms: None Reported Past Surgical History: Back Surgery, Cholecystectomy, Orthopedic Surgery Additional Past Surgical History / Comment(s): right knee scope and partial replacement, EGDs, colonoscopies, laminectomy Past Anesthesia/Blood Transfusion Reactions: No Reported Reaction Past Psychological History: Anxiety, Depression Smoking Status: Former smoker - Past Family History Father Family Medical History: Cancer Additional Family Medical History / Comment(s): Father of colon cancer with mets to spine. He at the age of 51 yrs. Mother Family Medical History: No Reported History Additional Family Medical History / Comment(s): Mother was healthy. General Exam Limitations: altered mental status General appearance: alert, in no apparent distress Head exam: Present: atraumatic, normocephalic Eye exam: Present: normal appearance, PERRL, EOMI ENT exam: Present: normal oropharynx, mucous membranes moist Neck exam: Present: other (Trachea is in midline). Absent: tenderness, meningismus Respiratory exam: Present: normal lung sounds bilaterally. Absent: respiratory distress, wheezes, rales, rhonchi, stridor Cardiovascular Exam: Present: regular rate, normal rhythm, normal heart sounds, other (Normal radial pulses bilaterally) GI/Abdominal exam: Present: soft. Absent: distended, tenderness, guarding Extremities exam: Present: full ROM, other (A superficial abrasion is noted over the patient's right anterior knee; patient has no right knee tenderness, and he has full range of motion at his right knee; pelvis is stable and nontender). Absent: tenderness, pedal edema Back exam: Present: normal inspection. Absent: tenderness Neurological exam: Present: alert, CN II-XII intact, other (Patient is oriented to person and place, but not to time). Absent: motor sensory deficit Psychiatric exam: Present: normal affect, normal mood Skin exam: Present: warm, dry, normal color Course Vital Signs 09/23/20 09/23/20 13:30 15:37 Temperature 97.8 F Pulse Rate 92 78 Respiratory 18 16 Rate Blood Pressure 126/65 153/85 O2 Sat by Pulse 94 L 97 Oximetry - Reevaluation(s) Reevaluation #1: 09/23/20 16:03 Case, H&P and test results were discussed with Dr. Lewis. He states that given that the patient has no leukocytosis or fever or left shift, he does not feel that the patient needs to be admitted for pneumonia treatment. He recommends oral antibiotic treatment if necessary and medical clearance for psychiatric placement. He has no further recommendations at this time. EKG Findings - EKG Comments: EKG Findings:: Sinus rhythm with first-degree AV block, ventricular rate of 83 bpm, no ectopy, CA interval of 246 ms, normal QRS duration, normal QT interval, normal axis, no ST or T-wave abnormality Medical Decision Making - Lab Data Result diagrams: 09/23/20 14:35 09/23/20 14:35 Lab Results 09/23/20 09/23/20 09/23/20 Range/Units 14:35 14:35 14:35 WBC 8.0 (3.8-10.6) k/uL RBC 4.51 (4.30-5.90) m/uL Hgb 13.5 (13.0-17.5) gm/dL Hct 39.3 (39.0-53.0) % MCV 87.1 (80.0-100.0) fL MCH 29.9 (25.0-35.0) pg MCHC 34.3 (31.0-37.0) g/dL RDW 16.5 H (11.5-15.5) % Plt Count 260 (150-450) k/uL MPV 7.0 Neutrophils % 80 % Lymphocytes % 10 % Monocytes % 5 % Eosinophils % 3 % Basophils % 1 % Neutrophils # 6.4 (1.3-7.7) k/uL Lymphocytes # 0.8 L (1.0-4.8) k/uL Monocytes # 0.4 (0-1.0) k/uL Eosinophils # 0.2 (0-0.7) k/uL Basophils # 0.1 (0-0.2) k/uL Anisocytosis Slight PT 10.5 (9.0-12.0) sec INR 1.0 (<1.2) APTT 23.5 (22.0-30.0) sec Sodium (137-145) mmol/L Potassium (3.5-5.1) mmol/L Chloride (98-107) mmol/L Carbon Dioxide (22-30) mmol/L Anion Gap mmol/L BUN (9-20) mg/dL Creatinine (0.66-1.25) mg/dL Est GFR (CKD-EPI)AfAm (>60 ml/min/1.73 sqM) Est GFR (CKD-EPI)NonAf (>60 ml/min/1.73 sqM) Glucose (74-99) mg/dL Plasma Lactic Acid Wing (0.7-2.0) mmol/L Calcium (8.4-10.2) mg/dL Total Bilirubin (0.2-1.3) mg/dL AST (17-59) U/L ALT (4-49) U/L Alkaline Phosphatase (38-126) U/L Ammonia (<30) umol/L Troponin I (0.000-0.034) ng/mL Total Protein (6.3-8.2) g/dL Albumin (3.5-5.0) g/dL Urine Opiates Screen Detected H (NotDetected) Ur Oxycodone Screen Not Detected (NotDetected) Urine Methadone Screen Not Detected (NotDetected) Ur Propoxyphene Screen Not Detected (NotDetected) Ur Barbiturates Screen Not Detected (NotDetected) U Tricyclic Antidepress Not Detected (NotDetected) Ur Phencyclidine Scrn Not Detected (NotDetected) Ur Amphetamines Screen Not Detected (NotDetected) U Methamphetamines Scrn Not Detected (NotDetected) U Benzodiazepines Scrn Detected H (NotDetected) Urine Cocaine Screen Not Detected (NotDetected) U Marijuana (THC) Screen Not Detected (NotDetected) Serum Alcohol mg/dL Coronavirus (PCR) (Not Detectd) 09/23/20 09/23/20 09/23/20 Range/Units 14:35 14:35 14:35 WBC (3.8-10.6) k/uL RBC (4.30-5.90) m/uL Hgb (13.0-17.5) gm/dL Hct (39.0-53.0) % MCV (80.0-100.0) fL MCH (25.0-35.0) pg MCHC (31.0-37.0) g/dL RDW (11.5-15.5) % Plt Count (150-450) k/uL MPV Neutrophils % % Lymphocytes % % Monocytes % % Eosinophils % % Basophils % % Neutrophils # (1.3-7.7) k/uL Lymphocytes # (1.0-4.8) k/uL Monocytes # (0-1.0) k/uL Eosinophils # (0-0.7) k/uL Basophils # (0-0.2) k/uL Anisocytosis PT (9.0-12.0) sec INR (<1.2) APTT (22.0-30.0) sec Sodium 139 (137-145) mmol/L Potassium 4.2 (3.5-5.1) mmol/L Chloride 105 (98-107) mmol/L Carbon Dioxide 24 (22-30) mmol/L Anion Gap 10 mmol/L BUN 21 H (9-20) mg/dL Creatinine 1.02 (0.66-1.25) mg/dL Est GFR (CKD-EPI)AfAm 81 (>60 ml/min/1.73 sqM) Est GFR (CKD-EPI)NonAf 70 (>60 ml/min/1.73 sqM) Glucose 94 (74-99) mg/dL Plasma Lactic Acid Wing 1.9 (0.7-2.0) mmol/L Calcium 9.4 (8.4-10.2) mg/dL Total Bilirubin 0.4 (0.2-1.3) mg/dL AST 20 (17-59) U/L ALT 6 (4-49) U/L Alkaline Phosphatase 51 (38-126) U/L Ammonia 13 (<30) umol/L Troponin I <0.012 (0.000-0.034) ng/mL Total Protein 6.8 (6.3-8.2) g/dL Albumin 4.2 (3.5-5.0) g/dL Urine Opiates Screen (NotDetected) Ur Oxycodone Screen (NotDetected) Urine Methadone Screen (NotDetected) Ur Propoxyphene Screen (NotDetected) Ur Barbiturates Screen (NotDetected) U Tricyclic Antidepress (NotDetected) Ur Phencyclidine Scrn (NotDetected) Ur Amphetamines Screen (NotDetected) U Methamphetamines Scrn (NotDetected) U Benzodiazepines Scrn (NotDetected) Urine Cocaine Screen (NotDetected) U Marijuana (THC) Screen (NotDetected) Serum Alcohol <10 mg/dL Coronavirus (PCR) (Not Detectd) 09/23/20 Range/Units 14:35 WBC (3.8-10.6) k/uL RBC (4.30-5.90) m/uL Hgb (13.0-17.5) gm/dL Hct (39.0-53.0) % MCV (80.0-100.0) fL MCH (25.0-35.0) pg MCHC (31.0-37.0) g/dL RDW (11.5-15.5) % Plt Count (150-450) k/uL MPV Neutrophils % % Lymphocytes % % Monocytes % % Eosinophils % % Basophils % % Neutrophils # (1.3-7.7) k/uL Lymphocytes # (1.0-4.8) k/uL Monocytes # (0-1.0) k/uL Eosinophils # (0-0.7) k/uL Basophils # (0-0.2) k/uL Anisocytosis PT (9.0-12.0) sec INR (<1.2) APTT (22.0-30.0) sec Sodium (137-145) mmol/L Potassium (3.5-5.1) mmol/L Chloride (98-107) mmol/L Carbon Dioxide (22-30) mmol/L Anion Gap mmol/L BUN (9-20) mg/dL Creatinine (0.66-1.25) mg/dL Est GFR (CKD-EPI)AfAm (>60 ml/min/1.73 sqM) Est GFR (CKD-EPI)NonAf (>60 ml/min/1.73 sqM) Glucose (74-99) mg/dL Plasma Lactic Acid Wing (0.7-2.0) mmol/L Calcium (8.4-10.2) mg/dL Total Bilirubin (0.2-1.3) mg/dL AST (17-59) U/L ALT (4-49) U/L Alkaline Phosphatase (38-126) U/L Ammonia (<30) umol/L Troponin I (0.000-0.034) ng/mL Total Protein (6.3-8.2) g/dL Albumin (3.5-5.0) g/dL Urine Opiates Screen (NotDetected) Ur Oxycodone Screen (NotDetected) Urine Methadone Screen (NotDetected) Ur Propoxyphene Screen (NotDetected) Ur Barbiturates Screen (NotDetected) U Tricyclic Antidepress (NotDetected) Ur Phencyclidine Scrn (NotDetected) Ur Amphetamines Screen (NotDetected) U Methamphetamines Scrn (NotDetected) U Benzodiazepines Scrn (NotDetected) Urine Cocaine Screen (NotDetected) U Marijuana (THC) Screen (NotDetected) Serum Alcohol mg/dL Coronavirus (PCR) Not Detected (Not Detectd) - Radiology Data Radiology results: report reviewed (Noncontrast head CT: No acute intracranial hemorrhage or midline shift; chest x-ray: mild cardiomegaly, left greater than right bibasilar acute infiltrate and/or atelectasis), image reviewed (right knee x-rays: No acute fracture or dislocation) Disposition Clinical Impression: Altered mental status, Abrasion of right knee Narrative: Possible pneumonia Disposition: ADMITTED IP TO THIS [facility] Condition: Stable Is patient prescribed a controlled substance at d/c from ED?: No Referrals: Preston Prado DO [Primary Care Provider] - 1-2 days
[2020-09-23] MEDS ORDERED: DIPH,PERTUS(ACELL)TETVAC-LF 0.5 ML VIAL IM ONE (14:14)
[2020-09-23 14:48] LABS: Anisocytosis Slight; Basophils # (A) 0.1 k/uL (0-0.2); Basophils % (A) 1 %; Eosinophils # (A) 0.2 k/uL (0-0.7); Eosinophils % (A) 3 %; HCT 39.3 % (39.0-53.0); HGB 13.5 gm/dL (13.0-17.5); Lymphocytes # (A) 0.8 k/uL (1.0-4.8); Lymphocytes % (A) 10 %; MCH 29.9 pg (25.0-35.0); MCHC 34.3 g/dL (31.0-37.0); MCV 87.1 fL (80.0-100.0); Monocytes # (A) 0.4 k/uL (0-1.0); Monocytes % (A) 5 %; Neutrophils # (A) 6.4 k/uL (1.3-7.7); Neutrophils % (A) 80 %; Platelet Count 260 k/uL (150-450); RBC 4.51 m/uL (4.30-5.90); RDW 16.5 % (11.5-15.5)
[2020-09-23 15:00] LABS: Partial Thromboplastin Time 23.5 sec (22.0-30.0); Prothrombin Time 10.5 sec (9.0-12.0)
--- NOTE | 2020-09-23 15:06 | CT ---
EXAMINATION TYPE: CT brain wo con DATE OF EXAM: 09/23/2020 HISTORY: Altered mental status. CT DLP: 1276.4 mGycm. Automated Exposure Control for Dose Reduction was Utilized. TECHNIQUE: CT scan of the head is performed without contrast. COMPARISON: CT brain August 31, 2020. FINDINGS: There is no acute intracranial hemorrhage or midline shift identified. There is mild to m oderate diffuse ventricular and sulcal prominence consistent with diffuse age-related cerebral atroph y. Gonzalez-white matter differentiation stable and maintained. Prominent arachnoid granulation right fro ntal region suspected axial image 41 unchanged from prior The globes are intact and the visualized si nuses are clear. IMPRESSION: No acute intracranial hemorrhage or midline shift. There is mild to moderate diffuse ce rebral atrophy redemonstrated. No significant change from most recent CT.
[2020-09-23 15:11] LABS: Amphetamine Screen,Urine Not Detected (NotDetected); Barbiturate Screen,Urine Not Detected (NotDetected); Benzodiazepines Screen,Urine Detected (NotDetected); Cocaine Screen,Urine Not Detected (NotDetected); Methadone Screen, Urine Not Detected (NotDetected); Opiate Screen,Urine Detected (NotDetected); Oxycodone Screen, Urine Not Detected (NotDetected); Phencyclidine Screen,Urine Not Detected (NotDetected); Tricyclic Antidepressant,Urine Not Detected (NotDetected); Urn Cannabinoid Scrn Not Detected (NotDetected)
--- NOTE | 2020-09-23 15:13 | XR ---
EXAMINATION TYPE: XR knee complete RT DATE OF EXAM: 09/23/2020 CLINICAL HISTORY: Pain after injury. TECHNIQUE: Three views of the left knee are obtained. COMPARISON: Bilateral knee x-rays December 01, 2019. FINDINGS: There is no acute fracture/dislocation evident in left knee. Postsurgical change from left -sided Oliverio-plasty procedure redemonstrated. New mobile radiodense or ossific round fragments in the joint are present. Stable mild lateral tibiofemoral compartment narrowing and spurring. Stable mild n arrowing and prominent inferior spur patellofemoral compartment. Prominent spur anterior superior pat ellar distal quadriceps tendon attachment. IMPRESSION: There is no acute fracture or dislocation in the left knee. Other findings as noted abo ve.
[2020-09-23 15:30] LABS: ALT 6 U/L (4-49); AST 20 U/L (17-59); African American GFR (CKD) 81 (>60 ml/min/1.73 sqM); Albumin 4.2 g/dL (3.5-5.0); Alcohol <10 mg/dL; Alkaline Phosphatase 51 U/L (38-126); Anion Gap 10 mmol/L; Blood Urea Nitrogen 21 mg/dL (9-20); Calcium 9.4 mg/dL (8.4-10.2); Carbon Dioxide 24 mmol/L (22-30); Chloride 105 mmol/L (98-107); Glucose 94 mg/dL (74-99); Lactic Acid, Venous 1.9 mmol/L (0.7-2.0); Non-African American GFR(CKD) 70 (>60 ml/min/1.73 sqM); Potassium 4.2 mmol/L (3.5-5.1); Sodium 139 mmol/L (137-145); Total Bilirubin 0.4 mg/dL (0.2-1.3); Total Protein 6.8 g/dL (6.3-8.2)
--- NOTE | 2020-09-23 15:39 | XR ---
EXAMINATION TYPE: XR chest 1V portable DATE OF EXAM: 09/23/2020 COMPARISON: Chest x-ray August 31, 2020 HISTORY: Altered mental status and weakness. TECHNIQUE: Single frontal view of the chest is obtained. FINDINGS: There low lung volumes with patchy left greater than right bibasilar opacities. The cardi ac silhouette size is stable and mildly enlarged with atherosclerotic aorta. The osseous structures are intact. IMPRESSION: Persistent low lung volumes and mild cardiomegaly with left greater than right bibasilar acute infiltrate and/or atelectasis.
[2020-09-23] MEDS ORDERED: DOXYCYCLINE 100 MG CAP PO STA (16:04)
[2020-09-24] MEDS ORDERED: ESCITALOPRAM 10 MG TAB PO SCH (12:30)
[2020-09-24] MEDS ORDERED: LEVODOPA PO SCH ×2 (13:00)
[2020-09-24] MEDS ORDERED: CARBIDOPA PO SCH ×2 (13:00)
[2020-09-24] MEDS: CARBIDOPA-LEVODOPA ER 50-200MG 1 EACH TABLET.ER PO SCH ×2 (14:24→23:43)
[2020-09-24] MEDS: CARBIDOPA-LEVODOPA ER 25-100MG 1 EACH TABLET.ER PO SCH (14:24)
[2020-09-24] MEDS ORDERED: rOPINIRole HCL 4 MG TABLET PO SCH ×3 (18:00)
[2020-09-24] MEDS ORDERED: CARBIDOPA-LEVODOPA ER 50-200MG 1 EACH TABLET.ER PO SCH (21:00)
[2020-09-24] MEDS: ESCITALOPRAM 10 MG TAB PO SCH (23:43)
[2020-09-25] MEDS ORDERED: FENOFIBRATE 160 MG TAB PO SCH (09:00)
[2020-09-25] MEDS: FENOFIBRATE 160 MG TAB PO SCH (15:03)
[2020-09-25] MEDS: ESCITALOPRAM 10 MG TAB PO SCH (15:03)
[2020-09-25] MEDS: CARBIDOPA-LEVODOPA ER 50-200MG 1 EACH TABLET.ER PO SCH ×2 (15:32→23:24)
[2020-09-25] MEDS: CARBIDOPA-LEVODOPA ER 25-100MG 1 EACH TABLET.ER PO SCH (15:33)
[2020-09-26] MEDS: ESCITALOPRAM 10 MG TAB PO SCH (18:46)
[2020-09-26] MEDS: FENOFIBRATE 160 MG TAB PO SCH (18:46)
[2020-09-26] MEDS: CARBIDOPA-LEVODOPA ER 25-100MG 1 EACH TABLET.ER PO SCH (19:12)
[2020-09-26] MEDS: CARBIDOPA-LEVODOPA ER 50-200MG 1 EACH TABLET.ER PO SCH (19:12)
[2020-09-27] MEDS ORDERED: CARBIDOPA-LEVODOPA ER 50-200MG 1 EACH TABLET.ER PO SCH (02:00)
[2020-09-27] MEDS: CARBIDOPA-LEVODOPA ER 25-100MG 1 EACH TABLET.ER PO SCH (03:36)
[2020-09-27] MEDS: CARBIDOPA-LEVODOPA ER 50-200MG 1 EACH TABLET.ER PO SCH (03:37)
[2020-09-27 08:46] VITALS: TEMP 97.5
[2020-09-27] MEDS: ESCITALOPRAM 10 MG TAB PO SCH (09:17)
[2020-09-27] MEDS: FENOFIBRATE 160 MG TAB PO SCH (09:17)
[2020-09-27] MEDS ORDERED: IPRATROPIUM-ALBUTEROL 3 ML NEB INHALATION STA ×2 (12:26→13:17)
--- NOTE | 2020-09-27 12:52 | P.PN ---
Progress Note - Text Progress Note Date: 09/27/20 Psychiatric progress note: Mr. Munoz is a 80-year-old male with history of Parkinson's dementia who came to the ER on 09/23 via EMS. According to ER report patient's claims that patient has a history of dementia however has been becoming more combative lately with her. Patient's UDS was positive for opiates and benzodiazepines. Patient had a computed tomography scan of his brain which showed no hemorrhages however did show mild to moderate diffuse cerebral atrophy. Patient was placed on a geriatric psych hold and attempting to be transferred to a facility. ER had requested telegraphic typewriter operator chief to see patient today. Patient was seen at the bedside this afternoon however appear to be in respiratory distress and gurgling during inspiration. He was able to respond to his name however did not appear to be able to engage in conversation. According to patient's nurse patient acutely has been decompensating in terms of his vitals and will likely need to be admitted medically today. Unable to formally evaluate patient psychiatrically today due to his medical condition. Please place a psychiatric consultation once patient is admitted medically for further recommendations.
--- NOTE | 2020-09-27 13:17 | XR ---
EXAMINATION TYPE: XR chest 1V portable DATE OF EXAM: 09/27/2020 COMPARISON: Chest x-ray from 4 days ago. HISTORY: Altered mental status and weakness. TECHNIQUE: Single portable frontal view of the chest is obtained. FINDINGS: New nasogastric tube projects below diaphragm. Persistent low lung volumes with left basila r opacity. Right lung remains clear. Cardiac silhouette size is stable and upper limits of normal wit h atherosclerotic change aortic knob. Multilevel spurring in the spine. Cholecystectomy clips. Promin ent gas-filled bowel loops and visualized abdomen including below right hemidiaphragm. IMPRESSION: Persistent low lung volumes with slightly more prominent left basilar acute infiltrate a nd/or atelectasis. New nasogastric tube satisfactory in position.
[2020-09-27] MEDS ORDERED: MIDAZOLAM 1 MG/ML 5 ML VIAL IV STA (13:29)
[2020-09-27] MEDS ORDERED: SUCCINYLCHOLINE CHLORIDE VIAL 200 MG/10 ML VIAL IV ONE (13:30)
[2020-09-27] MEDS ORDERED: SODIUM CHLORIDE 0.9% 1,000 ML IV ONE ×2 (13:30→14:42)
[2020-09-27 13:36] LABS: AST 32 U/L (17-59); African American GFR (CKD) 33 (>60 ml/min/1.73 sqM); Albumin 4.9 g/dL (3.5-5.0); Alkaline Phosphatase 83 U/L (38-126); Anion Gap 22 mmol/L; Blood Urea Nitrogen 34 mg/dL (9-20); Calcium 10.3 mg/dL (8.4-10.2); Carbon Dioxide 15 mmol/L (22-30); Chloride 99 mmol/L (98-107); Glucose 328 mg/dL (74-99); Magnesium 2.5 mg/dL (1.6-2.3); Non-African American GFR(CKD) 29 (>60 ml/min/1.73 sqM); Potassium 4.6 mmol/L (3.5-5.1); Sodium 136 mmol/L (137-145); Total Bilirubin 0.9 mg/dL (0.2-1.3); Total Protein 8.1 g/dL (6.3-8.2)
[2020-09-27 13:43] LABS: ALT <12 U/L (4-49)
[2020-09-27 13:52] LABS: Anisocytosis Slight; Basophils % (A) 0 %; Eosinophils % (A) 0 %; HCT 54.3 % (39.0-53.0); Hypochromasia Slight; Lymphocytes # (A) 1.9 k/uL (1.0-4.8); Lymphocytes % (A) 18 %; MCH 28.5 pg (25.0-35.0); MCHC 31.5 g/dL (31.0-37.0); MCV 90.6 fL (80.0-100.0); Monocytes # (A) 0.4 k/uL (0-1.0); Monocytes % (A) 4 %; Neutrophils # (A) 8.3 k/uL (1.3-7.7); Neutrophils % (A) 77 %; Platelet Count 340 k/uL (150-450); RBC 5.99 m/uL (4.30-5.90); RDW 16.6 % (11.5-15.5); WBC 10.8 k/uL (3.8-10.6)
[2020-09-27 13:58] LABS: HGB 17.1 gm/dL (13.0-17.5)
--- NOTE | 2020-09-27 14:03 | ED ---
Medical Decision Making - Lab Data Result diagrams: 09/27/20 12:53 09/27/20 12:53 <Manuel Jenkins - Last Filed: 09/27/20 18:29> - Lab Data Result diagrams: 09/27/20 12:53 09/27/20 12:53 <Daniel Mccoy - Last Filed: 09/29/20 21:03> - Medical Decision Making Patient became more hypoxic with agonal respirations, ultimately had cardiac arrest at 1822. Patient was pronounced. I discussed case with the medical language specialist and the primary care physician Dr. Prado has been paged. (Manuel Jenkins) I spoke with Dr. Franklin he stated that the patient was too sick at this point time to take the patient surgery and he did not think the patient would do well post surgery. I also spoke with Dr. Lewis he saw the patient and he agreed that the patient would not fare well and recommended comfort care. , son and daughter came to the bedside and decided to make patient comfort care. Pt. was given Morphine and was removed off the vent. (Daniel Mccoy) - Lab Data Lab Results 09/23/20 09/23/20 09/23/20 Range/Units 14:35 14:35 14:35 WBC 8.0 (3.8-10.6) k/uL RBC 4.51 (4.30-5.90) m/uL Hgb 13.5 (13.0-17.5) gm/dL Hct 39.3 (39.0-53.0) % MCV 87.1 (80.0-100.0) fL MCH 29.9 (25.0-35.0) pg MCHC 34.3 (31.0-37.0) g/dL RDW 16.5 H (11.5-15.5) % Plt Count 260 (150-450) k/uL MPV 7.0 Neutrophils % 80 % Lymphocytes % 10 % Monocytes % 5 % Eosinophils % 3 % Basophils % 1 % Neutrophils # 6.4 (1.3-7.7) k/uL Lymphocytes # 0.8 L (1.0-4.8) k/uL Monocytes # 0.4 (0-1.0) k/uL Eosinophils # 0.2 (0-0.7) k/uL Basophils # 0.1 (0-0.2) k/uL Hypochromasia Anisocytosis Slight PT 10.5 (9.0-12.0) sec INR 1.0 (<1.2) APTT 23.5 (22.0-30.0) sec Sample Site ABG pH (7.35-7.45) ABG pCO2 (35-45) mmHg ABG pO2 (83-108) mmHg ABG HCO3 (21-25) mmol/L ABG Total CO2 (19-24) mmol/L ABG O2 Saturation (94-97) % ABG Base Excess mmol/L Jose Test FiO2 % Sodium (137-145) mmol/L Potassium (3.5-5.1) mmol/L Chloride (98-107) mmol/L Carbon Dioxide (22-30) mmol/L Anion Gap mmol/L BUN (9-20) mg/dL Creatinine (0.66-1.25) mg/dL Est GFR (CKD-EPI)AfAm (>60 ml/min/1.73 sqM) Est GFR (CKD-EPI)NonAf (>60 ml/min/1.73 sqM) Glucose (74-99) mg/dL Lactic Ac Sepsis Rflx Plasma Lactic Acid Wing (0.7-2.0) mmol/L Calcium (8.4-10.2) mg/dL Magnesium (1.6-2.3) mg/dL Total Bilirubin (0.2-1.3) mg/dL AST (17-59) U/L ALT (4-49) U/L Alkaline Phosphatase (38-126) U/L Ammonia (<30) umol/L Troponin I (0.000-0.034) ng/mL NT-Pro-B Natriuret Pep pg/mL Total Protein (6.3-8.2) g/dL Albumin (3.5-5.0) g/dL Urine Opiates Screen Detected H (NotDetected) Ur Oxycodone Screen Not Detected (NotDetected) Urine Methadone Screen Not Detected (NotDetected) Ur Propoxyphene Screen Not Detected (NotDetected) Ur Barbiturates Screen Not Detected (NotDetected) U Tricyclic Antidepress Not Detected (NotDetected) Ur Phencyclidine Scrn Not Detected (NotDetected) Ur Amphetamines Screen Not Detected (NotDetected) U Methamphetamines Scrn Not Detected (NotDetected) U Benzodiazepines Scrn Detected H (NotDetected) Urine Cocaine Screen Not Detected (NotDetected) U Marijuana (THC) Screen Not Detected (NotDetected) Serum Alcohol mg/dL Coronavirus (PCR) (Not Detectd) 09/23/20 09/23/20 09/23/20 Range/Units 14:35 14:35 14:35 WBC (3.8-10.6) k/uL RBC (4.30-5.90) m/uL Hgb (13.0-17.5) gm/dL Hct (39.0-53.0) % MCV (80.0-100.0) fL MCH (25.0-35.0) pg MCHC (31.0-37.0) g/dL RDW (11.5-15.5) % Plt Count (150-450) k/uL MPV Neutrophils % % Lymphocytes % % Monocytes % % Eosinophils % % Basophils % % Neutrophils # (1.3-7.7) k/uL Lymphocytes # (1.0-4.8) k/uL Monocytes # (0-1.0) k/uL Eosinophils # (0-0.7) k/uL Basophils # (0-0.2) k/uL Hypochromasia Anisocytosis PT (9.0-12.0) sec INR (<1.2) APTT (22.0-30.0) sec Sample Site ABG pH (7.35-7.45) ABG pCO2 (35-45) mmHg ABG pO2 (83-108) mmHg ABG HCO3 (21-25) mmol/L ABG Total CO2 (19-24) mmol/L ABG O2 Saturation (94-97) % ABG Base Excess mmol/L Jose Test FiO2 % Sodium 139 (137-145) mmol/L Potassium 4.2 (3.5-5.1) mmol/L Chloride 105 (98-107) mmol/L Carbon Dioxide 24 (22-30) mmol/L Anion Gap 10 mmol/L BUN 21 H (9-20) mg/dL Creatinine 1.02 (0.66-1.25) mg/dL Est GFR (CKD-EPI)AfAm 81 (>60 ml/min/1.73 sqM) Est GFR (CKD-EPI)NonAf 70 (>60 ml/min/1.73 sqM) Glucose 94 (74-99) mg/dL Lactic Ac Sepsis Rflx Plasma Lactic Acid Wing 1.9 (0.7-2.0) mmol/L Calcium 9.4 (8.4-10.2) mg/dL Magnesium (1.6-2.3) mg/dL Total Bilirubin 0.4 (0.2-1.3) mg/dL AST 20 (17-59) U/L ALT 6 (4-49) U/L Alkaline Phosphatase 51 (38-126) U/L Ammonia 13 (<30) umol/L Troponin I <0.012 (0.000-0.034) ng/mL NT-Pro-B Natriuret Pep pg/mL Total Protein 6.8 (6.3-8.2) g/dL Albumin 4.2 (3.5-5.0) g/dL Urine Opiates Screen (NotDetected) Ur Oxycodone Screen (NotDetected) Urine Methadone Screen (NotDetected) Ur Propoxyphene Screen (NotDetected) Ur Barbiturates Screen (NotDetected) U Tricyclic Antidepress (NotDetected) Ur Phencyclidine Scrn (NotDetected) Ur Amphetamines Screen (NotDetected) U Methamphetamines Scrn (NotDetected) U Benzodiazepines Scrn (NotDetected) Urine Cocaine Screen (NotDetected) U Marijuana (THC) Screen (NotDetected) Serum Alcohol <10 mg/dL Coronavirus (PCR) (Not Detectd) 09/23/20 09/27/20 09/27/20 Range/Units 14:35 12:53 12:53 WBC 10.8 H (3.8-10.6) k/uL RBC 5.99 H (4.30-5.90) m/uL Hgb 17.1 D (13.0-17.5) gm/dL Hct 54.3 H (39.0-53.0) % MCV 90.6 (80.0-100.0) fL MCH 28.5 (25.0-35.0) pg MCHC 31.5 (31.0-37.0) g/dL RDW 16.6 H (11.5-15.5) % Plt Count 340 (150-450) k/uL MPV 9.0 Neutrophils % 77 % Lymphocytes % 18 % Monocytes % 4 % Eosinophils % 0 % Basophils % 0 % Neutrophils # 8.3 H (1.3-7.7) k/uL Lymphocytes # 1.9 (1.0-4.8) k/uL Monocytes # 0.4 (0-1.0) k/uL Eosinophils # 0.0 (0-0.7) k/uL Basophils # 0.0 (0-0.2) k/uL Hypochromasia Slight Anisocytosis Slight PT (9.0-12.0) sec INR (<1.2) APTT (22.0-30.0) sec Sample Site ABG pH (7.35-7.45) ABG pCO2 (35-45) mmHg ABG pO2 (83-108) mmHg ABG HCO3 (21-25) mmol/L ABG Total CO2 (19-24) mmol/L ABG O2 Saturation (94-97) % ABG Base Excess mmol/L Jose Test FiO2 % Sodium 136 L (137-145) mmol/L Potassium 4.6 (3.5-5.1) mmol/L Chloride 99 (98-107) mmol/L Carbon Dioxide 15 L (22-30) mmol/L Anion Gap 22 mmol/L BUN 34 H (9-20) mg/dL Creatinine 2.14 H (0.66-1.25) mg/dL Est GFR (CKD-EPI)AfAm 33 (>60 ml/min/1.73 sqM) Est GFR (CKD-EPI)NonAf 29 (>60 ml/min/1.73 sqM) Glucose 328 H (74-99) mg/dL Lactic Ac Sepsis Rflx Plasma Lactic Acid Wing (0.7-2.0) mmol/L Calcium 10.3 H (8.4-10.2) mg/dL Magnesium 2.5 H (1.6-2.3) mg/dL Total Bilirubin 0.9 (0.2-1.3) mg/dL AST 32 (17-59) U/L ALT <12 (4-49) U/L Alkaline Phosphatase 83 (38-126) U/L Ammonia (<30) umol/L Troponin I (0.000-0.034) ng/mL NT-Pro-B Natriuret Pep pg/mL Total Protein 8.1 (6.3-8.2) g/dL Albumin 4.9 (3.5-5.0) g/dL Urine Opiates Screen (NotDetected) Ur Oxycodone Screen (NotDetected) Urine Methadone Screen (NotDetected) Ur Propoxyphene Screen (NotDetected) Ur Barbiturates Screen (NotDetected) U Tricyclic Antidepress (NotDetected) Ur Phencyclidine Scrn (NotDetected) Ur Amphetamines Screen (NotDetected) U Methamphetamines Scrn (NotDetected) U Benzodiazepines Scrn (NotDetected) Urine Cocaine Screen (NotDetected) U Marijuana (THC) Screen (NotDetected) Serum Alcohol mg/dL Coronavirus (PCR) Not Detected (Not Detectd) 09/27/20 09/27/20 09/27/20 Range/Units 12:53 12:53 12:53 WBC (3.8-10.6) k/uL RBC (4.30-5.90) m/uL Hgb (13.0-17.5) gm/dL Hct (39.0-53.0) % MCV (80.0-100.0) fL MCH (25.0-35.0) pg MCHC (31.0-37.0) g/dL RDW (11.5-15.5) % Plt Count (150-450) k/uL MPV Neutrophils % % Lymphocytes % % Monocytes % % Eosinophils % % Basophils % % Neutrophils # (1.3-7.7) k/uL Lymphocytes # (1.0-4.8) k/uL Monocytes # (0-1.0) k/uL Eosinophils # (0-0.7) k/uL Basophils # (0-0.2) k/uL Hypochromasia Anisocytosis PT (9.0-12.0) sec INR (<1.2) APTT (22.0-30.0) sec Sample Site ABG pH (7.35-7.45) ABG pCO2 (35-45) mmHg ABG pO2 (83-108) mmHg ABG HCO3 (21-25) mmol/L ABG Total CO2 (19-24) mmol/L ABG O2 Saturation (94-97) % ABG Base Excess mmol/L Jose Test FiO2 % Sodium (137-145) mmol/L Potassium (3.5-5.1) mmol/L Chloride (98-107) mmol/L Carbon Dioxide (22-30) mmol/L Anion Gap mmol/L BUN (9-20) mg/dL Creatinine (0.66-1.25) mg/dL Est GFR (CKD-EPI)AfAm (>60 ml/min/1.73 sqM) Est GFR (CKD-EPI)NonAf (>60 ml/min/1.73 sqM) Glucose (74-99) mg/dL Lactic Ac Sepsis Rflx Plasma Lactic Acid Wing 6.4 H* (0.7-2.0) mmol/L Calcium (8.4-10.2) mg/dL Magnesium (1.6-2.3) mg/dL Total Bilirubin (0.2-1.3) mg/dL AST (17-59) U/L ALT (4-49) U/L Alkaline Phosphatase (38-126) U/L Ammonia (<30) umol/L Troponin I <0.012 (0.000-0.034) ng/mL NT-Pro-B Natriuret Pep 354 pg/mL Total Protein (6.3-8.2) g/dL Albumin (3.5-5.0) g/dL Urine Opiates Screen (NotDetected) Ur Oxycodone Screen (NotDetected) Urine Methadone Screen (NotDetected) Ur Propoxyphene Screen (NotDetected) Ur Barbiturates Screen (NotDetected) U Tricyclic Antidepress (NotDetected) Ur Phencyclidine Scrn (NotDetected) Ur Amphetamines Screen (NotDetected) U Methamphetamines Scrn (NotDetected) U Benzodiazepines Scrn (NotDetected) Urine Cocaine Screen (NotDetected) U Marijuana (THC) Screen (NotDetected) Serum Alcohol mg/dL Coronavirus (PCR) (Not Detectd) 09/27/20 09/27/20 09/27/20 Range/Units 12:59 13:25 15:32 WBC (3.8-10.6) k/uL RBC (4.30-5.90) m/uL Hgb (13.0-17.5) gm/dL Hct (39.0-53.0) % MCV (80.0-100.0) fL MCH (25.0-35.0) pg MCHC (31.0-37.0) g/dL RDW (11.5-15.5) % Plt Count (150-450) k/uL MPV Neutrophils % % Lymphocytes % % Monocytes % % Eosinophils % % Basophils % % Neutrophils # (1.3-7.7) k/uL Lymphocytes # (1.0-4.8) k/uL Monocytes # (0-1.0) k/uL Eosinophils # (0-0.7) k/uL Basophils # (0-0.2) k/uL Hypochromasia Anisocytosis PT (9.0-12.0) sec INR (<1.2) APTT (22.0-30.0) sec Sample Site Left Brachial ABG pH 7.03 L* (7.35-7.45) ABG pCO2 36 (35-45) mmHg ABG pO2 86 (83-108) mmHg ABG HCO3 9 L* (21-25) mmol/L ABG Total CO2 10 L (19-24) mmol/L ABG O2 Saturation 91.6 L (94-97) % ABG Base Excess -21.5 mmol/L Jose Test Yes FiO2 100 % Sodium (137-145) mmol/L Potassium (3.5-5.1) mmol/L Chloride (98-107) mmol/L Carbon Dioxide (22-30) mmol/L Anion Gap mmol/L BUN (9-20) mg/dL Creatinine (0.66-1.25) mg/dL Est GFR (CKD-EPI)AfAm (>60 ml/min/1.73 sqM) Est GFR (CKD-EPI)NonAf (>60 ml/min/1.73 sqM) Glucose (74-99) mg/dL Lactic Ac Sepsis Rflx Y Plasma Lactic Acid Wing (0.7-2.0) mmol/L Calcium (8.4-10.2) mg/dL Magnesium (1.6-2.3) mg/dL Total Bilirubin (0.2-1.3) mg/dL AST (17-59) U/L ALT (4-49) U/L Alkaline Phosphatase (38-126) U/L Ammonia (<30) umol/L Troponin I (0.000-0.034) ng/mL NT-Pro-B Natriuret Pep pg/mL Total Protein (6.3-8.2) g/dL Albumin (3.5-5.0) g/dL Urine Opiates Screen (NotDetected) Ur Oxycodone Screen (NotDetected) Urine Methadone Screen (NotDetected) Ur Propoxyphene Screen (NotDetected) Ur Barbiturates Screen (NotDetected) U Tricyclic Antidepress (NotDetected) Ur Phencyclidine Scrn (NotDetected) Ur Amphetamines Screen (NotDetected) U Methamphetamines Scrn (NotDetected) U Benzodiazepines Scrn (NotDetected) Urine Cocaine Screen (NotDetected) U Marijuana (THC) Screen (NotDetected) Serum Alcohol mg/dL Coronavirus (PCR) Not Detected (Not Detectd) 09/27/20 Range/Units 16:00 WBC (3.8-10.6) k/uL RBC (4.30-5.90) m/uL Hgb (13.0-17.5) gm/dL Hct (39.0-53.0) % MCV (80.0-100.0) fL MCH (25.0-35.0) pg MCHC (31.0-37.0) g/dL RDW (11.5-15.5) % Plt Count (150-450) k/uL MPV Neutrophils % % Lymphocytes % % Monocytes % % Eosinophils % % Basophils % % Neutrophils # (1.3-7.7) k/uL Lymphocytes # (1.0-4.8) k/uL Monocytes # (0-1.0) k/uL Eosinophils # (0-0.7) k/uL Basophils # (0-0.2) k/uL Hypochromasia Anisocytosis PT (9.0-12.0) sec INR (<1.2) APTT (22.0-30.0) sec Sample Site ABG pH (7.35-7.45) ABG pCO2 (35-45) mmHg ABG pO2 (83-108) mmHg ABG HCO3 (21-25) mmol/L ABG Total CO2 (19-24) mmol/L ABG O2 Saturation (94-97) % ABG Base Excess mmol/L Jose Test FiO2 % Sodium (137-145) mmol/L Potassium (3.5-5.1) mmol/L Chloride (98-107) mmol/L Carbon Dioxide (22-30) mmol/L Anion Gap mmol/L BUN (9-20) mg/dL Creatinine (0.66-1.25) mg/dL Est GFR (CKD-EPI)AfAm (>60 ml/min/1.73 sqM) Est GFR (CKD-EPI)NonAf (>60 ml/min/1.73 sqM) Glucose (74-99) mg/dL Lactic Ac Sepsis Rflx Plasma Lactic Acid Wing 8.5 H* (0.7-2.0) mmol/L Calcium (8.4-10.2) mg/dL Magnesium (1.6-2.3) mg/dL Total Bilirubin (0.2-1.3) mg/dL AST (17-59) U/L ALT (4-49) U/L Alkaline Phosphatase (38-126) U/L Ammonia (<30) umol/L Troponin I (0.000-0.034) ng/mL NT-Pro-B Natriuret Pep pg/mL Total Protein (6.3-8.2) g/dL Albumin (3.5-5.0) g/dL Urine Opiates Screen (NotDetected) Ur Oxycodone Screen (NotDetected) Urine Methadone Screen (NotDetected) Ur Propoxyphene Screen (NotDetected) Ur Barbiturates Screen (NotDetected) U Tricyclic Antidepress (NotDetected) Ur Phencyclidine Scrn (NotDetected) Ur Amphetamines Screen (NotDetected) U Methamphetamines Scrn (NotDetected) U Benzodiazepines Scrn (NotDetected) Urine Cocaine Screen (NotDetected) U Marijuana (THC) Screen (NotDetected) Serum Alcohol mg/dL Coronavirus (PCR) (Not Detectd) Critical Care Time Critical Care Time: Yes Total Critical Care Time: 60 <Daniel Mccoy - Last Filed: 09/29/20 21:03> Disposition <Manuel Jenkins - Last Filed: 09/27/20 18:29> Preliminary Cause of : Aspiration pneumonia, hypoxia, sepsis <Daniel Mccoy - Last Filed: 09/29/20 21:03> Clinical Impression: Altered mental status, Abrasion of right knee, Pneumonia, Bowel obstruction, Septic shock Disposition: Condition: Stable Referrals: Preston Prado DO [Primary Care Provider] - 1-2 days Procedures - Central Line Placement Right Femoral Consent Obtained: emergent situation MD Prep: mask, gown, gloves Central Line Prep: Chlorhexidine scrub Ultrasound Used for Placement: Yes Central Line Lumen Inserted: triple Bloods Obtained for Lab: No Central Line Position: good blood return, all ports aspirated, flushed, capped, sutured in place with nylon Dressing Applied: Tegaderm Patient Tolerated Procedure: well Complications: none - Intubation Sedative: Versed Paralytic: Succinylcholine Laryngoscope: Ruelas Size: 3 ET Tube Size: 8 Tube Secured Location: teeth Tube Placement Confirmation: visualized tube passing through cords, equal breath sounds bilaterally, no breath sounds over epigastrium, confirmation by capnometry <Daniel Mccoy - Last Filed: 09/29/20 21:03>
--- NOTE | 2020-09-27 14:22 | XR ---
EXAMINATION TYPE: XR chest 1V portable DATE OF EXAM: 09/27/2020 COMPARISON: Prior chest x-ray 09/27/2020 at earlier time HISTORY: Status post intubation TECHNIQUE: Single frontal view of the chest is obtained. FINDINGS: Endotracheal tube and NG tube are present, endotracheal tube is been placed in the interva l as overlying the tracheal air column in appropriate position. There is a right subclavian central v enous catheter, distal tip is coursing cephalad into the neck. No evident pneumothorax or pleural eff usion. Patchy basilar density is noted. Cardiac mediastinal silhouette is stable. Aorta is dense. Gas -filled loops of bowel noted within the abdomen. IMPRESSION: Central venous catheter is coursing cephalad, endotracheal tube overlying the tracheal a ir column. Correlate for pneumonia.
[2020-09-27] MEDS ORDERED: PIPERACILLIN-TAZOBACTAM 3.375 GM in SODIUM CHLORIDE 0.9% 100 ML IVPB STA (14:37)
--- NOTE | 2020-09-27 15:16 | CT ---
EXAMINATION TYPE: CT ChestAbdPelvis wo con DATE OF EXAM: 09/27/2020 COMPARISON: Chest x-ray earlier today. CT January 03, 2019 HISTORY: Abdominal distension and shortness of breath. CT DLP: 1320.8 mGycm. Automated Exposure Control for Dose Reduction was Utilized. TECHNIQUE: CT scan of the thorax, abdomen and pelvis is performed without oral or IV contrast. FINDINGS: LUNGS: Worsening bilateral mid to lower lung areas of multifocal groundglass opacity and/or organizin g consolidations with tiny bilateral pleural effusions. No pneumothorax seen bilaterally. MEDIASTINUM: Persistent endotracheal tube terminating above danny. Nasogastric tube extends below d iaphragm. No cardiomegaly or pericardial effusion. Moderate coronary artery calcification. LIVER/GB: Cholecystectomy clips. PANCREAS: No significant abnormality is seen. SPLEEN: No significant abnormality is seen. ADRENALS: No significant abnormality is seen. KIDNEYS: Cortical thinning in both kidneys consistent with product of chronic medical renal disease. Nonspecific 1.5 cm exophytic hyperdense lesion lower pole lateral left kidney favored thin-walled cys t axial image 88 current study Terrazas catheter in decompressed bladder. BOWEL: Slightly suboptimal evaluation of bowel without enteric contrast. There is some redundancy of the sigmoid colon. Sigmoid and left colon are decompressed. There is abrupt transition to level of sp lenic flexure into gas prominent right and transverse colon. There is abnormal fluid in the right col on. No obstructing mass is clearly identified. Transition point axial image 66 and coronal image 56. There are fluid prominent and somewhat dilated distal small bowel loops throughout the abdomen and pe lvis. Persistent mildly distended fluid-filled stomach. Duodenal sweep is not significantly dilated. No free air. No suspicious mesenteric air. GENITAL ORGANS: No gross abnormality seen. LYMPH NODES: No greater than 1cm abdominal or pelvic lymph nodes are appreciated. OSSEOUS STRUCTURES: Multilevel spurring in the spine. OTHER: No significant additional abnormality is seen. IMPRESSION: 1. There appears to be distal colonic obstruction at level of splenic flexure without obvious mass or suspicious wall thickening/inflammatory change. Consider stricture or adhesions as possible etiology though this is unusual to cause abrupt colonic obstruction. New Nasogastric tube satisfactory in pos ition. 2. Tiny bilateral pleural effusion as well as multifocal groundglass opacities and organizing consoli dation greatest in the lower lungs consistent with covid-19 infection.
[2020-09-27 15:41] LABS: ABG Base Excess -21.5 mmol/L; ABG Oxygen Saturation 91.6 % (94-97); ABG PCO2 36 mmHg (35-45); ABG PO2 86 mmHg (83-108); ABG TCO2 10 mmol/L (19-24); Allen Test Performed? Yes
[2020-09-27] MEDS ORDERED: SODIUM CHLORIDE 0.9% 1,000 ML IV STA ×2 (15:44)
[2020-09-27 15:59] VITALS: BP 125/106; PULSE 110; RESP 22
--- NOTE | 2020-09-27 16:02 | P.GSCN ---
History of Present Illness Consult date: 09/27/20 History of present illness: CHIEF COMPLAINT: abdominal distention HISTORY OF PRESENT ILLNESS: This is a 80-year-old male with a known history of dementia, Parkinson's, anxiety, depression and hiatal hernia. Patient also has a history of a lower esophageal Schatzki's ring and had EGD with dilation on 09/12/[address] Collins. Patient initially came into the ER because he had not been sleeping and had been more combative with his recently. Patient has been petitioned by his . Patient has been in the ER for 4 days awaiting for psychiatry placement. Apparently patient has been at his baseline alert and orientated 2. And apparently this afternoon patient had increasing difficulty breathing. There were concerns that patient may have aspirated. Patient continued to decline. He became tachycardic and elevated respiration rate. He was hypoxic and required to be intubated in the emergency room. Surgical consult was placed due to patient's abdominal distention. Patient has suddenly had abdominal distention in the ER. NG tube was placed. With a large amount of brownish output. Computed tomography scan of the abdomen and pelvis shows di stal colonic obstruction at the level of splenic flexure without obvious mass or suspicious wall thickening or inflammatory change. Consider stricture adhesions as possible etiology of this is unusual to cause abrupt colonic obstruction. Patient has been afebrile. PAST MEDICAL HISTORY: See list. PAST SURGICAL HISTORY: See list. MEDICATIONS: See list. ALLERGIES: See list. SOCIAL HISTORY: No illicit drug use. REVIEW OF SYSTEMS: CONSTITUTIONAL: Denies fever or chills. HEENT: Denies blurred vision, vision changes, or eye pain. Denies hemoptysis CARDIOVASCULAR: Denies chest pain or pressure. RESPIRATORY: No shortness of breath. GASTROINTESTINAL: See HPI for pertinent findings HEMATOLOGIC: Denies bleeding disorders. GENITOURINARY: Denies any blood in urine or increased urinary frequency. SKIN: Denies pruitis. Denies rash. PHYSICAL EXAM: VITAL SIGNS: Reviewed GENERAL: Well-developed in no acute distress. HEENT: No sclera icterus. Extraocular movements grossly intact. Moist buccal mucosa. Head is atraumatic, normocephalic. No nasal drainage. ABDOMEN: Abdomen is distended and firm. patient has mottling from the waist down. NEUROLOGIC: Patient is intubated LABORATORY DATA: WBC 10.8 hemoglobin 17.1 platelets 340 sodium 136 BUN 34 creatinine 2.14 Glucose 328 lactic 6.4 LFTs normal ammonia level 13 troponins are negative Drugs screen positive for opiates and benzos Covid not detected 2 IMAGING: Computed tomography scan of the abdomen and pelvis shows distal colonic obstruction at the level of splenic flexure without obvious mass or suspicious wall thickening or inflammatory change. Consider stricture adhesions as possible etiology of this is unusual to cause abrupt colonic obstruction. Computed tomography scan of the brain no acute intracranial hemorrhage or midline shift. There is mild to moderate diffuse cerebral atrophy redemonstrated. Chest x-ray correlate for pneumonia ASSESSMENT: 1. Abdominal distention 2. Distal colonic obstruction at the level of the splenic flexure 3. Acute hypoxic respiratory failure requiring to be intubated 4. Possible aspiration pneumonia 5. 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 Signing provider agrees with the documented findings, assessment, and plan of care. Past Medical History Past Medical History: Asthma, Dementia, GERD/Reflux, Hypertension, Musculoskeletal Disorder, Neurologic Disorder, Pneumonia Additional Past Medical History / Comment(s): Parkinson's disease, difficulty swallowing at times, gait dysfunction, chronic low back pain, hiatal hernia, divertiular dx. History of Any Multi-Drug Resistant Organisms: None Reported Past Surgical History: Back Surgery, Cholecystectomy, Orthopedic Surgery Additional Past Surgical History / Comment(s): right knee scope and partial replacement, EGDs, colonoscopies, laminectomy Past Anesthesia/Blood Transfusion Reactions: No Reported Reaction Past Psychological History: Anxiety, Depression Smoking Status: Former smoker - Past Family History Father Family Medical History: Cancer Additional Family Medical History / Comment(s): Father of colon cancer with mets to spine. He at the age of 51 yrs. Mother Family Medical History: No Reported History Additional Family Medical History / Comment(s): Mother was healthy. Medications and Allergies Home Medications Medication Instructions Recorded Confirmed Type Fenofibrate 160 mg PO DAILY 03/29/14 09/23/20 History Carbidopa/Levodopa [Sinemet CR 2.5 tab PO DAILY 04/19/17 09/23/20 History 50-200 mg] Carbidopa-Levodopa ER 50-200Mg 2 tab PO HS 09/07/20 09/23/20 History [Sinemet ER 50-200] Escitalopram [Lexapro] 10 mg PO DAILY 09/07/20 09/23/20 History amantadine HCL [Amantadine] 100 mg PO DAILY 09/07/20 09/23/20 History rOPINIRole HCL [Requip Xl] 4 mg PO DAILY@1800 09/24/20 09/24/20 History Allergies Allergy/AdvReac Type Severity Reaction Status Date / Time diltiazem HCl [From Cardizem] Allergy Mild Rash/Hives Verified 09/23/20 13:35 Beta-Blockers Allergy Rash/Hives Verified 09/23/20 13:35 (Beta-Adrenergic Bloc Surgical - Exam Vital Signs Temp Pulse Resp BP Pulse Ox 97.8 F 92 18 126/65 94 L 09/23/20 13:30 09/23/20 13:30 09/23/20 13:30 09/23/20 13:30 09/23/20 13:30 Results - Labs 09/27/20 12:53 09/27/20 12:53 Abnormal Lab Results - Last 24 Hours (Table) 09/27/20 09/27/20 09/27/20 Range/Units 12:53 12:53 12:53 WBC 10.8 H (3.8-10.6) k/uL RBC 5.99 H (4.30-5.90) m/uL Hct 54.3 H (39.0-53.0) % RDW 16.6 H (11.5-15.5) % Neutrophils # 8.3 H (1.3-7.7) k/uL Sodium 136 L (137-145) mmol/L Carbon Dioxide 15 L (22-30) mmol/L BUN 34 H (9-20) mg/dL Creatinine 2.14 H (0.66-1.25) mg/dL Glucose 328 H (74-99) mg/dL Plasma Lactic Acid Wing 6.4 H* (0.7-2.0) mmol/L Calcium 10.3 H (8.4-10.2) mg/dL Magnesium 2.5 H (1.6-2.3) mg/dL Microbiology - Last 24 Hours (Table) 09/23/20 16:38 Blood Culture - Preliminary Blood No Growth after 72 hours Diabetes panel 09/27/20 Range/Units 12:53 Sodium 136 L (137-145) mmol/L Potassium 4.6 (3.5-5.1) mmol/L Chloride 99 (98-107) mmol/L Carbon Dioxide 15 L (22-30) mmol/L BUN 34 H (9-20) mg/dL Creatinine 2.14 H (0.66-1.25) mg/dL Glucose 328 H (74-99) mg/dL Calcium 10.3 H (8.4-10.2) mg/dL AST 32 (17-59) U/L ALT <12 (4-49) U/L Alkaline Phosphatase 83 (38-126) U/L Total Protein 8.1 (6.3-8.2) g/dL Albumin 4.9 (3.5-5.0) g/dL Calcium panel 09/27/20 Range/Units 12:53 Calcium 10.3 H (8.4-10.2) mg/dL Albumin 4.9 (3.5-5.0) g/dL Pituitary panel 09/27/20 Range/Units 12:53 Sodium 136 L (137-145) mmol/L Potassium 4.6 (3.5-5.1) mmol/L Chloride 99 (98-107) mmol/L Carbon Dioxide 15 L (22-30) mmol/L BUN 34 H (9-20) mg/dL Creatinine 2.14 H (0.66-1.25) mg/dL Glucose 328 H (74-99) mg/dL Calcium 10.3 H (8.4-10.2) mg/dL Adrenal panel 09/27/20 Range/Units 12:53 Sodium 136 L (137-145) mmol/L Potassium 4.6 (3.5-5.1) mmol/L Chloride 99 (98-107) mmol/L Carbon Dioxide 15 L (22-30) mmol/L BUN 34 H (9-20) mg/dL Creatinine 2.14 H (0.66-1.25) mg/dL Glucose 328 H (74-99) mg/dL Calcium 10.3 H (8.4-10.2) mg/dL Total Bilirubin 0.9 (0.2-1.3) mg/dL AST 32 (17-59) U/L ALT <12 (4-49) U/L Alkaline Phosphatase 83 (38-126) U/L Total Protein 8.1 (6.3-8.2) g/dL Albumin 4.9 (3.5-5.0) g/dL
[2020-09-27 16:25] LABS: ABG HCO3 9 mmol/L (21-25); ABG PH 7.03 (7.35-7.45)
--- NOTE | 2020-09-27 16:27 | XR ---
EXAMINATION TYPE: XR chest 1V confirm line [facility] DATE OF EXAM: 09/27/2020 COMPARISON: Chest x-ray and CT earlier today. HISTORY: Central line placement. TECHNIQUE: Single portable frontal view of the chest is obtained. FINDINGS: Stable endotracheal and orogastric tubes. Persistent low lung volumes with worsening centra l vascular congestion and by lateral lower lung opacities. Cardiac silhouette size is stable and with in normal limits with atherosclerotic aortic knob. Osseous structures intact. IMPRESSION: Low lung volumes with worsening central vascular congestion and persistent bilateral mid to lower lung edema and/or infiltrates.
[2020-09-27] MEDS ORDERED: MORPHINE SULFATE 4 MG/ML SYRINGE IVP STA ×2 (16:46→17:34)
[2020-09-28] MEDS ORDERED: PIPERACILLIN-TAZOBACTAM 3.375 GM in SODIUM CHLORIDE 0.9% 100 ML IVPB SCH ×2
== END 2020-09-27 19:00 | disposition expired ==
LOC: EC 13:26
DX: R41.82 Altered mental status, unspecified (principal); S80.211A Abrasion, right knee, initial encounter; I10 Essential (primary) hypertension; J45.909 Unspecified asthma, uncomplicated; K21.9 Gastro-esophageal reflux disease without esophagitis; F32.9 Major depressive disorder, single episode, unspecified; F41.9 Anxiety disorder, unspecified; Z87.891 Personal history of nicotine dependence; X58.XXXA Exposure to other specified factors, initial encounter
CPT/HCPCS: 36415 ×2; 94640; 94002; 93005 ×2; 83880; 80053 ×2; 82140; 82805; 83605 ×2; 83735; 84484 ×2; 85025 ×2; 85610; 85730; 87040 ×2; 80306; 87635 ×2; 73562; 71045 ×2; 70450; 71250; 74176; 90715; 99291; 96365; 96366; 96375; 96376; 96361; 90471; G0480; J2543; J0330; J2270; J2250; 80320